=== PATIENT | male | born 1950 | race African-American/Black ===

== ENCOUNTER 2019-01-08 11:28 | Emergency (ER) | payer MEDICARE ==
[2019-01-08] MEDS ORDERED: Aspirin Chewable 81 MG TAB ONE (11:53)
[2019-01-08] MEDS ORDERED: Nitroglycerin 2% Ointment 1 INCH/1 GM Packet ONE (11:53)
[2019-01-08 12:31] LABS: #Lymphocytes 1.4 thou/uL (1.20-3.40); #Monocytes 0.4 thou/uL (0.11-0.59); #Neutrophils 3.8 thou/uL (1.40-6.50); %Basophils 0.2 % (0.0-1.0); %Eosinophils 0.5 % (0.0-10.0); %Lymphocytes 24.1 % (21.0-51.0); %Monocytes 7.1 % (0.0-10.0); %Neutrophils 68.1 % (42.0-75.0); Hemoglobin 12.7 g/dL (14.0-18.0); Mean Corpuscular HGB CONC 31.7 g/dL (32.0-36.0); Mean Platelet Volume 7.7 fL (7.4-10.4); Platelet Count 215 thou/uL (130-400); RBC Distribution Width 12.9 % (11.5-14.5); White Blood Cell (WBC) Count 5.6 thou/uL (4.8-10.8)
[2019-01-08 12:51] LABS: ALT (SGPT) 13 U/L (8-55); AST (SGOT) 15 U/L (5-34); Albumin 4.1 g/dL (3.4-4.8); Alkaline Phosphatase 84 U/L (40-150); Anion Gap 14 mmol/L (10-20); BUN (Urea Nitrogen) 7 mg/dL (8.4-25.7); Bilirubin, Total 1.2 mg/dL (0.2-1.2); CK (CPK) 276 U/L (30-200); Calc. Creatinine Clearance 0 mL/min (70-130); Calcium 8.9 mg/dL (7.8-10.44); Carbon Dioxide 25 mmol/L (23-31); Chloride 104 mmol/L (98-107); Estimated GFR-MDRD Greater than 90; Globulin 2.7 g/dL (2.4-3.5); Glucose 146 mg/dL (80-115); Lipase 35 U/L (8-78); Potassium 3.6 mmol/L (3.5-5.1); Protein, Total 6.8 g/dL (5.8-8.1); Sodium 139 mmol/L (136-145)
--- NOTE | 2019-01-08 13:00 | RAD ---
SINGLE VIEW CHEST: Date: 01/08/19 COMPARISON: 12/06/11. HISTORY: Chest pain. FINDINGS: Single view of the chest shows a normal sized cardiomediastinal silhouette. There is no evidence of c onsolidation, mass, or pleural effusion. The bones are unremarkable. IMPRESSION: No evidence of acute cardiopulmonary disease. POS: [facility]
[2019-01-08 15:20] LABS: Troponin I 0.014 ng/mL (< 0.028)
--- NOTE | 2019-01-08 15:35 | RAD ---
XR Ankle Lt 3 View STANDARD HISTORY: Trauma, left ankle pain FINDINGS: No fracture or dislocation is identified. Soft tissue swelling is present. The ankle mortise is maint ained.
--- NOTE | 2019-01-10 16:22 | EKG ---
Test Reason : CP Blood Pressure : / mmHG Vent. Rate : 055 BPM Atrial Rate : 055 BPM P-R Int : 152 ms QRS Dur : 092 ms QT Int : 444 ms P-R-T Axes : 052 -03 235 degrees QTc Int : 424 ms Sinus bradycardia with Premature atrial complexes Left ventricular hypertrophy with repolarization abnormality Abnormal ECG No change from 2016 Confirmed by CRALOS PADILLA, KATHE ([id number]), health editor VERO OSEGUERA ([id number]) on 01/10/2019 4:22:24 PM Referred By: CARLOS Confirmed By:KATHE GONZALEZ MD
== END 2019-01-08 15:45 | disposition home or self-care (01) ==
LOC: ERS 11:28
DX: R07.89 Other chest pain (principal); I11.0 Hypertensive heart disease with heart failure; I50.9 Heart failure, unspecified; I25.2 Old myocardial infarction; Z86.73 Personal history of transient ischemic attack (TIA), and cerebral infarction without residual deficits; Z87.891 Personal history of nicotine dependence; Z79.899 Other long term (current) drug therapy; Z79.84 Long term (current) use of oral hypoglycemic drugs; Z79.82 Long term (current) use of aspirin
CPT/HCPCS: 36415; 71045; 80053; 82550; 83690; 83880; 84484; 85025; 93005

== ENCOUNTER 2019-04-19 17:28 | Inpatient (IN) | payer MEDICARE ==
[2019-04-19] MEDS ORDERED: Morphine 4 MG/ML VIAL ONE (18:12)
--- NOTE | 2019-04-19 18:34 | RAD ---
Exam: Chest one view HISTORY:Rapid exam. Abdominal pain. Chronic cholecystitis. Comparison: 01/08/2019 FINDINGS: Stable stent projects over the medial left lung apex. Cardiac silhouette: Normal Aorta: Unremarkable Pulmonary vessels: Mild pulmonary vascular prominence. Costophrenic angles: Small right-sided effusion LUNGS: Bibasilar interstitial and alveolar opacities. Pneumothorax: None Osseous abnormalities: None IMPRESSION: Possible volume overload.
[2019-04-19] MEDS ORDERED: Ondansetron ODT 4 MG TAB PO PRN (19:00)
[2019-04-19] MEDS ORDERED: Dextrose 50% Abboject 50 ML SYRINGE SLOW IVP PRN (19:00)
[2019-04-19] MEDS ORDERED: Morphine 2 MG/ML SYRINGE SLOW IVP PRN (19:00)
[2019-04-19] MEDS ORDERED: Dextrose 5% in Water 1,000 ML IV PRN (19:00)
[2019-04-19] MEDS ORDERED: HumaLOG 300 UNITS/3 ML VIAL SC PRN (19:00)
[2019-04-19] MEDS ORDERED: Ketorolac Tromethamine 30 MG/ML VIAL IVP SCH ×2 (19:30→22:30)
[2019-04-19] MEDS ORDERED: Acetaminophen 1,000 MG in Premix Bag 1 BAG IVPB SCH (19:30)
[2019-04-19] MEDS ORDERED: Metoprolol Tartrate 5 MG/5 ML VIAL ONE (20:03)
[2019-04-19] MEDS: Famotidine/PF 20 mg/2ml Vial SLOW IVP SCH (22:00)
[2019-04-19] MEDS: Enoxaparin Sodium 40 MG/0.4 ML SYRINGE SC SCH (22:00)
[2019-04-19] MEDS: Lactated Ringer's 1,000 ML IV SCH (22:20)
[2019-04-19 22:59] VITALS: BMI 27.3
[2019-04-19] MEDS: Piperacillin/Tazobactam 3.375 GM in Sodium Chloride 0.9% 100 ML IVPB SCH (23:38)
[2019-04-20] MEDS ORDERED: Ketorolac Tromethamine 30 MG/ML VIAL IVP PRN (01:00)
--- NOTE | 2019-04-20 02:20 | HP ---
HISTORY OF PRESENT ILLNESS: Montez Jeff, a 69-year-old male patient transferred from [place] to the emergency room at [facility]. The patient complains of abdominal pain. In [place], this is evaluated with a CT scan of the abdomen and pelvis. This revealed distended gallbladder with gallstones and a dilated bile duct. He has bilateral inguinal hernias present. Degenerative spine changes. Common bile duct 9-10 mm. White count is 7, hemoglobin 13. Sodium 143, potassium 3.5, BUN 7, creatinine 0.98, bilirubin is 3.1, AST and ALT are 60 and 63, ALT 354, alkaline phosphatase 160. Lipase is normal. The patient is admitted for intravenous antibiotics, hydration, and GI consultation for ERCP with subsequent laparoscopic cholecystectomy. He understands risks and benefits of procedure and consents. PAST MEDICAL HISTORY: Hypertension, diabetes mellitus. He reports past myocardial infarctions followed by Dr. Calvillo, has not seen him in a number of years. He denies having cardiac catheterization or stents. He had EGD in [address] South with duodenal biopsy that was negative and gastric biopsies negative for metaplasia and H pylori. 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 On 11/19/2011, he had a laparoscopic hand-assisted right colectomy. On 11/26/2011, he had a laparoscopy with irrigation and placement of a drain for a leak. On 11/30/2011, he required repeat operation with resection of the terminal ileum, proximal transverse colostomy with redo of his anastomosis to resolve the problem. the patient has had previous cervical spine surgery x2, 2002 and 2005. He has had a previous appendectomy with a right lower quadrant paramedian incision, his last surgery. PAST MEDICAL HISTORY: Coronary artery disease status post past myocardial infarction followed by Dr. Calvillo, has not seen him in years. Previous stroke with left hemiparesis. He is nonambulatory. Previous spine surgery with right arm weakness. Previous history of swallowing problems due to CVA, hypertension. SOCIAL HISTORY: The patient lives with his family. They help him with his daily mobility. MEDICATIONS: 1. Baclofen 10 mg a day. 2. Gabapentin 800 mg 2 times a day. 3. MiraLAX 17 g once a week. 4. Dulcolax once a week. 5. Bentyl 20 mg as needed p.r.n. 6. Losartan 25 mg once a day. 7. Metformin 1000 mg once a day. PHYSICAL EXAMINATION: VITAL SIGNS: 86 kg, heart rate 80, respiratory rate 19, temperature 99 degrees, 160/78. HEAD, EARS, EYES, NOSE, AND THROAT: Unremarkable. LUNGS: Clear to auscultation. CARDIAC: Regular rate and rhythm without murmur or gallop. ABDOMEN: Tender with guarding, upper and lower abdomen. EXTREMITIES: Left hemiparesis; chronic edema, left lower extremity; right upper extremity weakness, cannot move it at all. He has some movement in his left upper extremity which is markedly impaired. REVIEW OF SYSTEMS: Noncontributory except as above. ASSESSMENT AND PLAN: 1. Cholecystitis, choledocholithiasis. His exam and history are impaired by his previous neurological impairments. CAT scan did not reveal anything other than cholecystitis. The plan is for admission, intravenous antibiotics, pain control. We will consult Gastroenterology and anticipate he will need an ERCP followed by laparoscopic cholecystectomy. 2. Diabetes mellitus. 3. Hypertension. 4. Coronary artery disease stable, followed by Dr. Calvillo in the past, EKG. 5. History of tobacco abuse, cessation more than 10 years ago. 6. Previous stroke with left hemiplegia. 7. Right upper arm weakness from previous cervical spine problems and surgery. 8. Poor mobility due to neurological impairment, lives with his family who helps him. Job ID: [id number]
[2019-04-20] MEDS: Lactated Ringer's 1,000 ML IV SCH ×3 (02:43→17:51)
[2019-04-20] MEDS: Piperacillin/Tazobactam 3.375 GM in Sodium Chloride 0.9% 100 ML IVPB SCH ×3 (05:27→17:48)
[2019-04-20] MEDS: Famotidine/PF 20 mg/2ml Vial SLOW IVP SCH ×2 (08:00→20:35)
[2019-04-20] MEDS ORDERED: FLU VACC TS2019-20(65YR UP)/PF 180 MCG/0.5 ML SYRINGE IM ONE (09:00)
[2019-04-20] MEDS ORDERED: ADENOSINE 60 MG/20 ML VIAL ONE (09:40)
[2019-04-20] MEDS: Acetaminophen 1,000 MG in Premix Bag 1 BAG IVPB PRN ×2 (09:54→20:35)
--- NOTE | 2019-04-20 10:03 | CON ---
DATE OF CONSULTATION: REASON FOR CONSULTATION: Preoperative clearance, history of CAD, status post RI. HISTORY OF PRESENT ILLNESS: Mr. Jones is a 69-year-old gentleman, who was evaluated by Dr. Rogelio South 3 years ago. He was also seen and evaluated by Dr. Keyshawn Calvillo greater than 5 years ago. He recently presented with cholecystitis. From a CV standpoint, he states he has had an RI x3 in the past. Stent or bypass was not performed. This was at [facility]. He has also had 3 strokes and is wheelchair bound. He has contraction of his left extremity. He states he had an episode of chest pain while in [place]. This was in November. No further studies were performed at that time. He states he has not had a recent stress study. No further episodes of chest pain noted. No significant shortness of breath, although his ambulation is limited due to the above. PAST MEDICAL HISTORY: Hypertension, hyperlipidemia, diabetes mellitus, CAD status post RI, CVA. SOCIAL HISTORY: He has a very supportive family. No current tobacco or alcohol use. HOME MEDICATIONS: Include: 1. Gabapentin. 2. Baclofen. 3. MiraLAX. 4. Dulcolax. 5. Bentyl. 6. Losartan. 7. Metformin. REVIEW OF SYSTEMS: A 10-point review of systems is reviewed as above, otherwise negative. PHYSICAL EXAMINATION: GENERAL: Patient is a pleasant gentleman who is in no acute distress. The patient appears their stated age. VITAL SIGNS: Blood pressure 129/94, pulse 85, temperature 97.6. NEUROLOGIC: Left __upper extremity extremity contraction. HEENT: Sclerae without icterus. Mouth has moist mucous membranes with normal pallor. NECK: No JVD. Carotid upstroke brisk. No bruits bilaterally. LUNGS: Clear to auscultation with unlabored respirations. BACK: No scoliosis or kyphosis. CARDIAC: Regular rate and rhythm with normal S1 and S2. No S3 or S4 noted. No significant rubs, murmurs, thrills, or gallops noted throughout the precordium. PMI is not displaced. There is no parasternal heave. ABDOMEN: Soft, nontender, nondistended. No peritoneal signs present. No hepatosplenomegaly. No abnormal striae. EXTREMITIES: 2+ femoral and 2+ dorsalis pedis pulses. No cyanosis, clubbing, or edema. SKIN: No gross abnormalities. PERTINENT LABORATORY DATA: Creatinine is 0.98. Lactic acid level 5.9. Troponin 0.014. BNP of 63. Hemoglobin 13.6. Chart not available for review. IMPRESSION: 1. Preoperative clearance. 2. Coronary artery disease. 3. Status post myocardial infarction. 4. Hypertension and hyperlipidemia. 5. Previous cerebrovascular accident. RECOMMENDATIONS: Mr. Jones did have an episode of chest pain in November. His ambulation is limited due to a previous CVA. Given previous history of RI, chest pain in November, and sedentary with limited ambulation, we recommend a noninvasive stress study prior to proceeding with surgery. This will help assess his LVEF in addition to assess his ischemic burden if any. Further recommendations will be pending the above. ADDENDUM: Recent stress test without ischemia present. EF normal. Pt felt to be at low risk for complications. Please reconsult if questions arise. Job ID: [id number] MTDD
[2019-04-20 12:36] LABS: #Monocytes 0.9 thou/uL (0.11-0.59); #Neutrophils 10.1 thou/uL (1.40-6.50); %Basophils 0.1 % (0.0-1.0); %Eosinophils 0.4 % (0.0-10.0); %Monocytes 7.3 % (0.0-10.0); %Neutrophils 84.3 % (42.0-75.0); Hemoglobin 12.6 g/dL (14.0-18.0); Mean Corpuscular HGB CONC 31.8 g/dL (32.0-36.0); Mean Corpuscular Hemoglobin 26.5 pg (27.0-31.0); Mean Corpuscular Volume 83.3 fL (78.0-98.0); Mean Platelet Volume 7.4 fL (7.4-10.4); Platelet Count 183 thou/uL (130-400); RBC Distribution Width 12.8 % (11.5-14.5); Red Blood Cell (RBC) Count 4.77 mill/uL (4.70-6.10)
[2019-04-20 13:03] LABS: ALT (SGPT) 273 U/L (8-55); AST (SGOT) 177 U/L (5-34); Albumin 3.3 g/dL (3.4-4.8); Alkaline Phosphatase 129 U/L (40-110); Anion Gap 15 mmol/L (10-20); BUN (Urea Nitrogen) 9 mg/dL (8.4-25.7); Bilirubin, Total 4.7 mg/dL (0.2-1.2); Calc. Creatinine Clearance 80 mL/min (70-130); Carbon Dioxide 23 mmol/L (23-31); Chloride 105 mmol/L (98-107); Estimated GFR-MDRD Greater than 90; Globulin 2.6 g/dL (2.4-3.5); Glucose 123 mg/dL (80-115); Potassium 3.4 mmol/L (3.5-5.1); Protein, Total 5.9 g/dL (5.8-8.1); Sodium 140 mmol/L (136-145)
--- NOTE | 2019-04-20 14:54 | RAD ---
PORTABLE CHEST: Date: 04/20/19 HISTORY: Assess central line placement. COMPARISON: 08/20/18. FINDINGS/IMPRESSION: Central line via the right subclavian has tip overlying the SVC. Lungs appear clear with no acute interval change noted. POS: [facility]
--- NOTE | 2019-04-20 16:46 | NM ---
NM Cardiac Stress W EF WF History: Chest pain Comparison: None. Findings: Stress and rest performed after the intravenous administration of 30.2 and 10 mCi technetiu m 99m sestamibi, respectively. No scar or ischemia. Normal wall motion. Calculated ejection fraction is 59%. Impression: No scar or ischemia. Code CR: Dr. Rossi notified of findings via [employer] connect at 4:43 PM
--- NOTE | 2019-04-20 17:42 | PRG ---
DATE OF SERVICE: 04/20/2019 Mr. Jones is doing well. His pain is less. He has been spent the whole day doing a cardiac stress test. The stress test was negative and there is no reversible ischemia. His cardiac ejection fraction is normal. Dr. Wyman saw him in consultation. Plan is for ERCP with GI. Dr. Torres was seen today. Dr. Michelle will take over his care tomorrow. I will plan laparoscopic cholecystectomy post ERCP. We will let him have full liquids tonight. N.p.o. after midnight tonight. He understands risks and benefits. Questions answered. Of note is he had to have a central line placed because of infiltration of his IV and difficult IV access. It was performed in Nuclear Medicine. Job ID: [id number]
--- NOTE | 2019-04-20 19:15 | CON ---
DATE OF CONSULTATION: 04/20/2019 PRIMARY CARE PROVIDER: Zaira Rey in [place], [place]. PRIMARY SERVICE ATTENDING: Dr. Rossi with General Surgery Service. REASON FOR CONSULTATION: General medical management. HISTORY OF PRESENT ILLNESS: This is a 69-year-old male, who presented to [facility] after transferring from [place] [facility] with complaints of abdominal pain. The patient complained of increase in abdominal pain and distention with CT imaging in the emergency room showing evidence of cholecystitis and choledocholithiasis. The patient was noted with elevated total bilirubin as well as transaminitis and concern for cholecystitis. The patient received intravenous normal saline in addition to IV Flagyl, Rocephin, and Zofran. The patient was admitted under the General Surgery Service with plans to pursue robot-assisted cholecystectomy after ERCP by GI Service. The patient underwent cardiac stress testing due to history of coronary artery disease with final Cardiolite stress testing results pending. The patient denies any specific increased shortness of breath, chest pain, or abdominal pain currently. The patient denied fever, chills, or exposure history. The patient does admit to a long-standing history of left-sided hemiplegia after sustaining a CVA in 2004. The patient also admits to right upper extremity paralysis after a cervical spine surgery. The patient states he is nonambulatory at baseline and uses an electric wheelchair for mobilization. The patient receives assistance from family members with general care and activities of daily living. PAST MEDICAL HISTORY: 1. Hypertension. 2. Coronary artery disease, status post cardiac stent placement. 3. CVA with residual left hemiparesis. 4. Nonambulatory status at baseline. 5. 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 6. Former tobacco use, quitting in 2009. 7. Colon cancer, status post resection. 8. Peripheral neuropathy. 9. Diabetes mellitus, type 2. PAST SURGICAL HISTORY: 1. Status post EGD with gastric biopsies negative for metaplasia. 2. Status post right hemicolectomy secondary to adenocarcinoma. 3. Status post laparoscopy with irrigation and placement of drain after anastomotic leak. 4. Status post cervical spine surgery x2. 5. Status post appendectomy. 6. Status post right lower quadrant paramedian incisional hernia. CURRENT MEDICATIONS: 1. Enteric-coated aspirin 81 mg p.o. b.i.d. 2. Baclofen 5 mg p.o. b.i.d. 3. Lasix 20 mg p.o. daily. 4. Gabapentin 400 mg p.o. b.i.d. 5. Cozaar 100 mg p.o. daily. 6. Metformin 500 mg p.o. b.i.d. 7. Simvastatin 20 mg p.o. at bedtime. ALLERGIES: TO ASPIRIN? FAMILY HISTORY: Positive for diabetes mellitus and hypertension. SOCIAL HISTORY: The patient resides in [place], [place], with family members. . Requires assistance with all activities of daily living and general hygiene. Mobilizes with electric wheelchair and nonambulatory at baseline. Quit smoking in 2009. No alcohol or illicit drug use. REVIEW OF SYSTEMS: CONSTITUTIONAL: Negative for weight loss or gain, ability to conduct usual activities. SKIN: Negative for rash, itching. EYES: Negative for double vision, pain. ENT/MOUTH: Negative for nose bleeding, neck stiffness, pain, tenderness. CARDIOVASCULAR: Negative for palpitations, dyspnea on exertion, orthopnea. RESPIRATORY: Negative for shortness of breath, wheezing, cough, hemoptysis, fever or night sweats. GASTROINTESTINAL: Negative for poor appetite, abdominal pain, heartburn, nausea, vomiting, constipation, or diarrhea. GENITOURINARY: Negative for urgency, frequency, dysuria, nocturia. MUSCULOSKELETAL: Negative for pain, swelling. NEUROLOGIC/PSYCHIATRIC: Negative for anxiety, depression. ALLERGY/IMMUNOLOGIC: Negative for skin rash, bleeding tendency. Otherwise, negative except as stated per HPI. PHYSICAL EXAMINATION: VITAL SIGNS: On initial evaluation, blood pressure 149/83, pulse 81, respiratory rate 20, temperature 97.4 degrees Fahrenheit, and O2 saturation 92% on room air. GENERAL APPEARANCE: This is a 69-year-old male, alert, responsive, smiling, and in no acute distress. HEENT: Pupils are equal, round, reactive to light and accommodation. Extraocular muscles are intact. Mild scleral icterus. No conjunctival injection. Nares patent. OP is clear with teeth in poor repair. NECK: Supple. No cervical adenopathy. No thyromegaly. No carotid bruits. No JVD appreciated. Cervical spine with full active and passive range of motion. No meningeal signs noted. CHEST: Diminished breath sounds in the bases bilaterally. CARDIOVASCULAR: S1 and S2 with distant heart sounds. No murmur, rub, or gallop appreciated. ABDOMEN: Rounded, soft, nontender, and nondistended. Bowel sounds are positive in all 4 quadrants. There is no hepatosplenomegaly, no abdominal bruit, no rebound or guarding appreciated. EXTREMITIES: Warm and dry with fair turgor. No clubbing, cyanosis, or asymmetric edema appreciated. Pulses palpable distally at the dorsalis pedis, posterior tibial, and popliteal arteries bilaterally. Capillary refill less than 2 seconds. NEUROLOGIC: Nonambulatory at baseline. Right upper extremity paralysis. Left hemiparesis. Contractures noted of the left upper extremity. Alert and oriented x3. LABORATORY AND DIAGNOSTIC DATA: Sodium 140, potassium 3.4, chloride 105, CO2 of 23, BUN 9, creatinine 0.97, estimated GFR greater than 90, glucose 123, calcium 8.0, total bilirubin 4.7, AST 177, ALT 273, alkaline phosphatase 129, and albumin 3.3. CBC showed a white blood cell count of 12.0, hemoglobin 12.6, hematocrit 40, platelet count 183 with 84% neutrophils. CT of the abdomen and pelvis dated 04/19/2019, showed a mildly distended gallbladder with gallstones and enlarged common bile duct. Prostatic enlargement noted. Portable chest x-ray dated 04/20/2019, showed central venous catheter in the right subclavian distribution overlying the superior vena cava. EKG dated 04/19/2019, by my interpretation shows a sinus mechanism with heart rates in the 80s. Normal R-wave progression noted in the precordial leads. Normal axis. No acute ST-T wave changes appreciated. ASSESSMENT AND PLAN: 1. Acute cholecystitis/choledocholithiasis. The patient admitted under the General Surgery Service. Continue Zosyn 3.375 g IV q.6 hours. Pain control with morphine sulfate as clinically indicated. Continue intravenous lactated Ringer's at 125 mL/h. Plan for robot-assisted cholecystectomy after ERCP. NPO status currently. 2. Hypokalemia. Recommend potassium chloride supplementation with serial potassium monitoring. Recommend complete metabolic profile in the a.m. 3. Diabetes mellitus type 2. Continue insulin sliding scale for reflexive coverage. Hold metformin until taking regular oral intake. Serial Accu-Cheks before meals and at bedtime. 4. Hypertension. Resume home regimen to include losartan 100 mg daily. Serial blood pressure monitoring. 5. Coronary artery disease, chronic, and stable. Review final Cardiolite stress testing results. 6. Chronic left hemiparesis and right upper extremity paralysis. Stable currently. No acute intervention recommended. 7. Prophylaxis. SCDs while in bed. Pepcid 20 mg p.o. b.i.d. 8. Code status is full. Surrogate medical decision maker is the patient's son, Montez Jones. Thank you for the consultation. We will continue to follow with Primary Service. Job ID: [id number]
[2019-04-20] MEDS: Ondansetron PF 4 MG/2 ML Vial IVP PRN (20:35)
[2019-04-20] MEDS: Enoxaparin Sodium 40 MG/0.4 ML SYRINGE SC SCH (20:36)
--- NOTE | 2019-04-20 20:52 | CON ---
DATE OF CONSULTATION: 04/20/2019 CHIEF COMPLAINT: Abdominal pain. HISTORY OF PRESENT ILLNESS: Mr. Jones is a 69-year-old man, who presented to the emergency room yesterday with abdominal pain. He started with a sharp lower abdominal pain yesterday. He vomited once at home and then again in the emergency room last night. He has had vomiting with certain foods over the last few months including chili and tomato sauce. His pain has been mostly in the lower abdomen. However, he has had tenderness noted in the right upper quadrant as well. During evaluation in the emergency room, he had a CT scan that showed distended gallbladder with cholelithiasis and prominent common bile duct. Bile duct reportedly measured around 10 mm. GI was consulted to evaluate for ERCP. The patient's liver tests were noted to be elevated as well. The patient has had no diarrhea or blood in the stool. He has been confined to live with his son and has been unable to use his left arm or right arm. His son has to bathe him and clean him up after bowel movements. The patient has suffered a stroke with left-sided weakness. He had right arm paralysis reportedly after cervical spine surgery. He has had no fever associated with this. PAST MEDICAL HISTORY: Stroke, diabetes mellitus, hypertension, history of myocardial infarction. He has had colon cancer and had surgery for that back in 2011, but reports that he has had no followup colonoscopy since then. PAST SURGICAL HISTORY: Includes right hemicolectomy, he had a drain for leak after that. He had terminal ileum resection with redo anastomosis after that. He has had appendectomy. He has had cervical spine surgery. FAMILY HISTORY: Negative for GI malignancy. SOCIAL HISTORY: No alcohol, tobacco, or drugs. ALLERGIES: ASPIRIN. MEDICATIONS PRIOR TO ADMISSION: 1. Aspirin 81 mg. 2. Baclofen. 3. Gabapentin. 4. MiraLAX. 5. Dulcolax. 6. Losartan. 7. Metformin 1000 mg daily. 8. He reports he has had frequent vomiting since his metformin dose was increased back in November. REVIEW OF SYSTEMS: Negative x10 systems reviewed, except as stated in the history of present illness. PHYSICAL EXAMINATION: VITAL SIGNS: Temperature is 97.4, pulse 81, blood pressure 149/83. GENERAL: He is in no acute distress. Alert and oriented x3. HEENT: Eyes have no scleral icterus. Oropharynx is clear without lesions. LYMPH NODES: No cervical or supraclavicular lymphadenopathy. LUNGS: Clear to auscultation bilaterally. HEART: Regular rate and rhythm without murmur. ABDOMEN: Soft. His abdomen is tender in the epigastric and lower abdomen. Bowel sounds are present. EXTREMITIES: 1+ pitting lower extremity edema. LABORATORY DATA: White blood cell count 12.0, hemoglobin 12.6, platelets 183. Creatinine 0.97. Bilirubin 4.7, up from 3.1 yesterday. AST is 177, down from 663 yesterday; ALT 273; alkaline phosphatase 129, down from 160 yesterday. Albumin 2.6. His viral hepatitis screen is negative. IMPRESSION: 1. Cholelithiasis with suspected cholecystitis. 2. Choledocholithiasis. He has gallstones noted in the gallbladder. His common bile duct is dilated. His white blood cell count is mildly elevated, but no other signs of cholangitis at this point. His pain has been more lower abdomen; however, given his prior stroke, bed-bound state, and multiple medications, he may not experience classic pain presentation. There are no other obvious signs of liver disease with a negative viral hepatitis panel and negative alcohol history. He is on a statin. However, the pattern of the liver tests are not highly suggestive of that. 3. History of coronary artery disease. He did undergo a cardiac stress test today that was negative. His ejection fraction was reported as normal. 4. History of colon cancer. He has had no followup colonoscopy reportedly after his surgery for colon cancer back in 2011. RECOMMENDATIONS: 1. We will plan to follow through with ERCP tomorrow. Dr. Michelle will be on to perform that procedure. I discussed the procedure in detail with the patient and the patient's son. I discussed the risks of ERCP including bleeding, infection, pancreatitis, failure to cannulate, and perforation. Also, I did advise the son that the patient's son and the patient's sister should both get increased risk screening colonoscopies performed given the patient's history of colon cancer. 2. Recheck his liver tests tomorrow morning. Job ID: [id number]
[2019-04-21] MEDS: Piperacillin/Tazobactam 3.375 GM in Sodium Chloride 0.9% 100 ML IVPB SCH ×4 (01:00→18:45)
[2019-04-21] MEDS: Morphine 4 MG/ML VIAL SLOW IVP PRN ×2 (01:08→05:18)
[2019-04-21] MEDS: Lactated Ringer's 1,000 ML IV SCH ×3 (03:29→17:43)
[2019-04-21] MEDS: Ondansetron PF 4 MG/2 ML Vial IVP PRN (05:30)
[2019-04-21 06:51] LABS: #Lymphocytes 0.7 thou/uL (1.20-3.40); #Monocytes 0.5 thou/uL (0.11-0.59); #Neutrophils 7.4 thou/uL (1.40-6.50); %Basophils 0.1 % (0.0-1.0); %Eosinophils 0.6 % (0.0-10.0); %Lymphocytes 7.8 % (21.0-51.0); %Monocytes 5.4 % (0.0-10.0); %Neutrophils 86.1 % (42.0-75.0); Hemoglobin 11.2 g/dL (14.0-18.0); Mean Corpuscular HGB CONC 31.5 g/dL (32.0-36.0); Mean Corpuscular Hemoglobin 26.1 pg (27.0-31.0); Mean Corpuscular Volume 82.9 fL (78.0-98.0); Mean Platelet Volume 8.1 fL (7.4-10.4); Platelet Count 187 thou/uL (130-400); Red Blood Cell (RBC) Count 4.28 mill/uL (4.70-6.10); White Blood Cell (WBC) Count 8.6 thou/uL (4.8-10.8)
[2019-04-21 07:11] LABS: ALT (SGPT) 201 U/L (8-55); AST (SGOT) 99 U/L (5-34); Albumin 3.2 g/dL (3.4-4.8); Alkaline Phosphatase 130 U/L (40-110); Anion Gap 15 mmol/L (10-20); BUN (Urea Nitrogen) 7 mg/dL (8.4-25.7); Bilirubin, Total 4.4 mg/dL (0.2-1.2); Calc. Creatinine Clearance 84 mL/min (70-130); Carbon Dioxide 25 mmol/L (23-31); Chloride 103 mmol/L (98-107); Estimated GFR-MDRD Greater than 90; Globulin 2.8 g/dL (2.4-3.5); Glucose 130 mg/dL (80-115); Potassium 3.1 mmol/L (3.5-5.1); Sodium 140 mmol/L (136-145)
[2019-04-21] MEDS: Famotidine/PF 20 mg/2ml Vial SLOW IVP SCH ×2 (08:44→20:24)
[2019-04-21] MEDS ORDERED: Indomethacin 50 MG SUPP ONE (10:41)
[2019-04-21] MEDS ORDERED: Iothalamate Meglumine 60% 50 ML VIAL FS ONE (10:41)
[2019-04-21] MEDS ORDERED: Bupivacaine HCl 0.5%/Epinephrine 1:200,000/PF 30 ml Vial ONE (10:55)
[2019-04-21] MEDS ORDERED: Indomethacin 50 MG SUPP PR ONE (11:15)
[2019-04-21] MEDS ORDERED: Fentanyl 100 MCG/2 ML VIAL ONE ×2 (11:17→15:59)
[2019-04-21] MEDS ORDERED: Piperacillin/Tazobactam 3.375 GM VIAL ONE (12:12)
[2019-04-21] MEDS ORDERED: Sodium Chloride 0.9% 100 ML ONE (12:13)
--- NOTE | 2019-04-21 13:00 | OP ---
DATE OF PROCEDURE: 04/20/2019 PREOPERATIVE DIAGNOSES: 1. Cholecystitis. 2. Cholelithiasis. 3. Previous stroke. 4. Undergoing stress test, in need of ERCP and laparoscopic cholecystectomy. 5. Poor IV access. POSTOPERATIVE DIAGNOSES: 1. Cholecystitis. 2. Cholelithiasis. 3. Previous stroke. 4. Undergoing stress test, in need of ERCP and laparoscopic cholecystectomy. 5. Poor IV access. PROCEDURE PERFORMED: Right subclavian vein central line. ANESTHESIA: 1% Xylocaine. DESCRIPTION OF PROCEDURE: With the patient at bedside, his right paraclavicular area was prepared with ChloraPrep and draped in routine fashion. Local anesthetic was infiltrated in the skin and subcutaneous tissue about the operative site. Using Seldinger technique, the right subclavian vein central line was placed. J-wire removed. Catheter secured with 2 interrupted suture of 3-0 silk. Sterile dressing applied. Chest x-ray obtained, revealed good line placement. Job ID: [id number]
--- NOTE | 2019-04-21 13:41 | PQF ---
CLINICAL DOCUMENTATION IMPROVEMENT CLARIFICATION FORM: ICD-10 Updated PLEASE DO AN ADDENDUM TO THE PROGRESS NOTE WITH ANY DOCUMENTATION UPDATES OR ADDITIONS AND CARRY THROUGH TO DC SUMMARY. THANK YOU. DATE: 04/21/19 ATTN: DR. CARROLL Please exercise your independent, professional judgment in responding to the clarification form. Clinical indicators are provided on the bottom of this form for your review Please check appropriate box(es): [ ] Sepsis due to: (Pna, UTI, gangrenous gall bladder, etc.) ___cholangitis___ [ ] SIRS due to non-infectious process (please specify etiology) [ ] with organ dysfunction [ ] without organ dysfunction [ ] Localized infection without sepsis [ ] Other diagnosis [ ] Unable to determine In addition, please specify: Present on Admission (POA): [ yes ] Yes [ ] No [ ] Unable to determine For continuity of documentation, please document condition throughout progress notes and discharge summary. Thank You. CLINICAL INDICATORS - SIGNS / SYMPTOMS / LABS / RESULTS AND LOCATION IN MR ER NOTE04/19: "SEPSIS" PULSE 103 WBC 04/20: 12.0 RISKS: CHOLECYSTITIS (ER NOTE 04/19) TREATMENT: IV ZOSYN (04/19-PRESENT) ERCP 04/21 GI CONSULT (This form is maintained as a part of the permanent medical record) 2014 [employer]. All Rights Reserved [email or web address] Office: [phone] [facility]VERNEUR HEALTHJean Marie
--- NOTE | 2019-04-21 13:53 | RAD ---
XR ERCP History: Stone removal Comparison: CT examination June 19, 2019 Findings: 2 images were obtained from the ERCP suite. Low-grade extra hepatic biliary dilatation. Impression: Fluoroscopy for procedural use.
--- NOTE | 2019-04-21 14:34 | OP ---
DATE OF PROCEDURE: 04/21/2019 PROCEDURES PERFORMED: Endoscopic retrograde cholangiopancreatography with sphincterotomy and removal of biliary sludge/calculi. INDICATION FOR PROCEDURE: Right upper quadrant abdominal pain, elevated LFTs, and possible choledocholithiasis. DESCRIPTION OF PROCEDURE: After the risks and benefits of the procedure were explained to the patient including risks of bleeding, infection, perforation, reactions to anesthesia, aspiration, post ERCP pancreatitis and/or pain, informed consent was obtained. The patient was then taken to the endoscopy suite, where general anesthesia was administered with endotracheal tube intubation via Anesthesia support. Once the patient was intubated and sedated, he was then transferred to the prone position in anticipation of the ERCP. Once in adequate position and the fluoroscopy arm was in place, the standard duodenoscope was advanced into the mouth with intubation of the esophagus, stomach, and the proximal small intestines with the findings listed below. Initially, the ampulla was extremely difficult to be identified with a large amount of bile seen within the first and second portion of the duodenum. As such, the duodenoscope was exchanged for a standard gastroscope for better visualization to direct viewing. The ampulla was not able to be easily identified even with the EGD scope, but aggressive irrigation and suctioning was then performed to clear the second portion of bile. The standard colonoscope was then reintroduced into the mouth and advanced to the second portion of the duodenum, where a small area of bile was seen emanating from the mucosa underneath the fold. Upon manipulation of that fold, the ampulla was then easily identified. Using a 5 mm sphincterotome, the ampulla was then cannulated with a guidewire placed into the common bile duct and into the intrahepatic biliary tree. Once adequate positioning was obtained, a cholangiogram was then performed. No filling defects were initially seen, but a sphincterotomy was then performed with one balloon sweep in order to clear the duct. However, there was extreme difficulty maintaining this position and recannulation of the biliary tree was not able to be performed after the wire was removed. However, at the end of the procedure, repeat cholangiogram showed adequate draining of the biliary tree and again with no filling defects. All equipment was removed from the patient and was then subsequently transferred to PACU in satisfactory condition. EGD FINDINGS: Limited views were obtained of the esophagus, stomach, and the proximal small intestines via an ERCP portion of this examination. However, with transferring over to the standard gastroscope, adequate visualization was then achieved. Normal-appearing mucosa was then seen in the proximal, mid, and distal esophagus. There was some mild oozing of blood seen within the stomach that was consistent with scope trauma associated with the passage of the duodenoscope, but otherwise there was no evidence of erosions, ulcerations, mass, lesions, or active/recent bleeding. Normal-appearing mucosa was then seen within the first and second portion of the duodenum. However, there was a large amount of bile seen in the second portion of the duodenum that was then successfully irrigated during the EGD portion of this examination. The ampulla was not successfully identified using the standard gastroscope. ERCP FINDINGS: The standard colonoscope was introduced into the mouth and advanced through the esophagus, stomach, and to the proximal small intestines. Initially, the ampulla was not easily identified as there was a large amount of bile within the second portion of the duodenum. The polypoid appearance of the ampulla was not easily identified. The duodenoscope was then exchanged for a gastroscope and using the gastroscope, the second portion of the duodenum was successfully irrigated and suctioned of all bile for better visualization, the gastroscope was then removed and exchanged back for the duodenoscope and using the duodenoscope, the mucosa was then carefully examined. One particular spot along the second portion of the superior duodenal wall was seen with new bile emanating from underneath a few folds. Using the 5 mm sphincterotome, the folds were successfully manipulated away revealing the ampulla itself. Once the ampulla was identified, the sphincterotome was introduced into the common bile duct using a guidewire, which was then advanced into the intrahepatic biliary tree with successful placement of the biliary guidewire. The sphincterotome was advanced into the common bile duct with a cholangiogram performed. The common bile duct measured approximately 8 to 9 mm in size and did not exhibit any filling defects within the common bile duct or the common hepatic duct. Mild filling of the intrahepatic biliary tree was observed. Then, using an exchange technique, the sphincterotome was exchanged over guidewire for a 9 to 12 mm biliary balloon. Once the balloon was successfully exchanged, it was advanced into the common bile duct and advanced to the proximal common hepatic duct. Inflating the balloon to 12 mm, the balloon was then successfully withdrawn with removal of a large amount of sludge, but no evidence of biliary stones. Extreme difficulty was experienced while maintaining this position and inadvertently the guidewire was removed upon balloon extraction. Repeat attempts at placing a guidewire back into the biliary tree were unsuccessful. Good drainage of bile was noted after the sphincterotomy and with a repeat fluoroscopy image, the common hepatic, intrahepatic, and common bile duct were draining nicely. With no observable filling defect, good drainage of the biliary tree, the procedure was then terminated and all equipment was removed from the patient. IMPRESSION: 1. Extreme difficulty with identification of the ampulla of Vater, requiring the exchange for a gastroscope to irrigate the second portion of the duodenum for easy identification. 2. Successful cannulation of the ampulla with sphincterotomy and balloon sweep performed with extraction of dark brown/black biliary sludge, but no observed stones. RECOMMENDATIONS: 1. Would continue to trend the patient's LFTs for resolution and if continues to uptrend, may consider repeat ERCP for further balloon extractions. 2. Would continue antibiotics for at least the next 24 hours given increased risk of infection. 3. Would advance the patient to a clear liquid diet. 4. Would confer with General Surgery of the timing for laparoscopic cholecystectomy and would recommend an intraoperative cholangiogram at the time of the procedure. 5. Would continue to monitor the patient for clinical evidence or clinical signs of post ERCP pancreatitis. Job ID: [id number]
[2019-04-21] MEDS ORDERED: hydrALAZINE 20 MG/ML VIAL ONE (14:44)
[2019-04-21] MEDS ORDERED: Ondansetron HCl/PF 4 MG/2 ML Vial IVP PRN (14:48)
[2019-04-21] MEDS ORDERED: Promethazine HCl 25 MG/ML VIAL IM PRN ×2 (14:48→16:55)
[2019-04-21] MEDS ORDERED: Promethazine HCl 25 MG/ML VIAL SLOW IVP PRN (14:48)
[2019-04-21] MEDS ORDERED: Acetaminophen 1,000 MG in Premix Bag 1 BAG IVPB PRN (15:17)
[2019-04-21] MEDS ORDERED: traMADol HCl 50 MG TAB PO PRN (15:17)
[2019-04-21] MEDS ORDERED: diphenhydrAMINE 25 MG CAP PO PRN (16:55)
[2019-04-21] MEDS ORDERED: Zolpidem Tartrate 5 MG TAB PO PRN (16:55)
[2019-04-21] MEDS ORDERED: fentaNYL Citrate/PF 2,000 MCG in Sodium Chloride 0.9% 60 ML IV PRN (16:55)
[2019-04-21] MEDS ORDERED: Naloxone HCl 0.4 mg/ml Vial IV PRN (16:55)
[2019-04-21] MEDS ORDERED: diphenhydrAMINE 50 MG/ML VIAL IM PRN (16:55)
[2019-04-21] MEDS ORDERED: diphenhydrAMINE 50 MG/ML VIAL IVP PRN (16:55)
[2019-04-21] MEDS ORDERED: Ondansetron PF 4 MG/2 ML Vial IVP PRN (16:55)
[2019-04-21] MEDS ORDERED: metFORMIN 500 MG TAB PO SCH (17:00)
[2019-04-21] MEDS ORDERED: Communication Order-Pharmacy FS SCH (17:00)
[2019-04-21] MEDS: Ketorolac Tromethamine 30 MG/ML VIAL IVP SCH (17:33)
[2019-04-21] MEDS: Acetaminophen 1,000 MG in Premix Bag 1 BAG IVPB SCH (17:42)
--- NOTE | 2019-04-21 17:59 | OP ---
DATE OF PROCEDURE: 04/21/2019 PREOPERATIVE DIAGNOSES: Cholecystitis and cholelithiasis. POSTOPERATIVE DIAGNOSIS: Adhesions from prior surgery. Note, the patient had an ERCP by Dr. Michelle extracting sludge from the common duct under the same anesthetic, undergoing laparoscopic cholecystectomy. PROCEDURE PERFORMED: Laparoscopic converted open cholecystectomy due to adhesions from prior surgery. ANESTHESIA: General, local 0.5% Marcaine with epinephrine 30 mL. DESCRIPTION OF PROCEDURE: The patient was taken to the operating room, where after ERCP by Dr. Michelle, sphincterotomy and sludge extraction, abdomen was prepared with ChloraPrep and draped in routine fashion. Local anesthetic was infiltrated in the skin and subcutaneous tissue about the port sites. Right subcostal incision was made. Pneumoperitoneum to 15 mmHg was obtained with a Veress needle, a 5 port was placed. I introduced the laparoscope, could not see anything for adhesions. Right subxiphoid incision was made and 11 port placed. Again, I could not see anything for adhesions. Left lateral subcostal incision was made, and 5 port was placed and again, there were too many adhesions. Incision was made in right subcostal carried down through skin and subcutaneous tissue through the anterior rectus sheath, fascia, rectus muscle and posterior sheath and abdominal cavity sharply. Adhesions were taken down from the liver bed the stomach from the liver. The gallbladder identified, dissected free. Bookwalter retractor was used to perform cholecystectomy retrograde using cautery. Cystic artery and duct identified, dissected free. Cystic artery doubly clipped proximally, divided the cystic duct, dissected free. It was too broad to be occluded by clip, thus it was clamped and ligated with a 2-0 silk tie after divided. Gallbladder removed, submitted to Pathology. Good hemostasis was assured with cautery. Sponge and instrument counts were correct as all instruments were removed, and the posterior fascia approximated with continuous suture of #1 PDS, anterior fascia with interrupted locking sutures of 0 PDS. Skin and subcutaneous tissues were irrigated. Skin was approximated with stephania. The patient tolerated the procedure well. Job ID: [id number]
[2019-04-21] MEDS: hydrALAZINE 20 MG/ML VIAL SLOW IVP PRN ×2 (18:01→22:05)
--- NOTE | 2019-04-21 18:32 | PDOC.HOSPP ---
- Subjective Encounter Date: 04/21/19 Subjective: Pt seen at bed site c/o surgery site pain Denies chest pain headache dizziness BP higher site diastolic in the range of 110 - Objective Vital Signs & Weight: Vital Signs (12 hours) Temp Pulse Resp BP BP Pulse Ox 04/21/19 18:20 180/114 H 04/21/19 18:09 100 205/111 H 04/21/19 18:06 97.5 F L 83 18 211/128 H 100 04/21/19 18:01 91 212/114 H 04/21/19 14:45 91 187/89 H 04/21/19 10:51 97.5 F L 101 H 14 131/80 94 L 04/21/19 07:38 97.5 F L 67 12 176/89 H 98 Weight Weight 175 lb 1 oz I&O: 04/20/19 04/21/19 04/22/19 06:59 06:59 06:59 Intake Total 2703 1788 Balance 2703 1788 Result Diagrams: 04/22/19 06:00 04/23/19 05:30 Additional Labs: Accuchecks 04/21/19 04/21/19 04/20/19 05:50 01:20 18:32 POC Glucose 120 H 125 H 104 Hospitalist ROS - Review of Systems Constitutional: denies: chills Eyes: denies: pain ENT: denies: ear pain Respiratory: reports: dry. denies: cough Cardiovascular: denies: chest pain Gastrointestinal: reports: abdominal pain. denies: nausea Musculoskeletal: denies: neck pain Skin: denies: rash Neurological: denies: weakness - Medication Medications: Active Medications Generic Name Dose Route Start Last Admin Trade Name Freq PRN Reason Stop Dose Admin Enoxaparin Sodium 40 mg 04/19/19 21:00 04/20/19 20:36 Lovenox SC 40 mg 2100 TIKA Administration Famotidine 20 mg 04/19/19 21:00 04/21/19 08:44 Pepcid SLOW IVP 20 mg Q12HR TIKA Administration Hydralazine HCl 10 mg 04/19/19 19:00 04/21/19 18:01 Apresoline SLOW IVP 10 mg Q4H PRN Administration SBP > 170 or DBP > 100 Piperacillin Sod/Tazobactam 100 mls @ 200 mls/hr 04/19/19 23:59 04/21/19 13: 09 Sod 3.375 gm/ Sodium Chloride IVPB Not Given Q6HR [facility] Acetaminophen 1,000 mg/ Device 100 mls @ 400 mls/hr 04/21/19 18:00 04/21/19 17:42 IVPB 04/22/19 12:14 Not Given Q6HR [facility] Insulin Human Lispro 0 units 04/19/19 19:00 04/20/19 00:05 Humalog SC 4 unit .MODERATE SLIDING SC PRN Administration Moderate Correctional Scale Ketorolac Tromethamine 30 mg 04/21/19 18:00 04/21/19 17:33 Toradol IVP 04/26/19 18:01 Not Given Q6HR [facility] Ondansetron HCl 4 mg 04/19/19 19:00 04/21/19 05:30 Zofran IVP 4 mg Q6H PRN Administration Nausea - Exam General Appearance: awake alert Eye: anicteric sclera ENT: normocephalic atraumatic, dry oral mucosa Neck: supple Heart: no murmur Respiratory: no wheezes Gastrointestinal: tender to palpation Extremities: no cyanosis Neurological: cranial nerve grossly intact Musculoskeletal: normal tone Hosp A/P - Plan Acute Cholecystitis /choledocholithiasis s/p ERCP and cholecystectomy Continue pain meds Hypertension with hypertensive urgency most likley contributing factor pain Continue PRN hydralazine , Pain control if persistent High BP readings will transfer to IMC DM continue to monitor blood sugars h/o CVA Continue supportive care DVT/GI Prophyalxis Discussed with pt and family member and nursing staff
[2019-04-21] MEDS ORDERED: 1/2 NS w/KCL 20 mEq 1,000 ML IV SCH (18:45)
[2019-04-21] MEDS ORDERED: Losartan 25 MG TAB PO SCH (18:45)
[2019-04-21] MEDS: 1/2 NS w/KCL 20 mEq 1,000 ML IV SCH (19:20)
[2019-04-21] MEDS ORDERED: Dexamethasone 20 MG/5 ML VIAL ONE (19:44)
[2019-04-21] MEDS ORDERED: Glycopyrrolate 0.2 MG/ML 5 ML SYRINGE ONE (19:44)
[2019-04-21] MEDS ORDERED: PHENYLEPHRINE-NS 100 MCG/ML 10 ML SYRINGE ONE (19:44)
[2019-04-21] MEDS ORDERED: Rocuronium Bromide 10 MG/ML (10ML VIAL) ONE (19:44)
[2019-04-21] MEDS ORDERED: Ondansetron PF 4 MG/2 ML Vial ONE (19:44)
[2019-04-21] MEDS ORDERED: Ketorolac Tromethamine 30 MG/ML VIAL ONE (19:44)
[2019-04-21] MEDS ORDERED: PROPOFOL 200 MG/20 ML VIAL ONE (19:44)
[2019-04-21] MEDS ORDERED: Succinylcholine Chloride 20 MG/ML 10 ml SYRINGE FS ONE (19:44)
[2019-04-21] MEDS: Simvastatin 20 MG TAB PO SCH (20:23)
[2019-04-21] MEDS: Gabapentin 400 MG CAP PO SCH (20:28)
[2019-04-21] MEDS: Aspirin 81 mg Enteric Coated Tablet PO SCH (20:28)
[2019-04-21] MEDS: Baclofen 10 MG TAB PO SCH (20:29)
[2019-04-21] MEDS: Enoxaparin Sodium 40 MG/0.4 ML SYRINGE SC SCH (20:32)
[2019-04-22] MEDS: Piperacillin/Tazobactam 3.375 GM in Sodium Chloride 0.9% 100 ML IVPB SCH ×2 (00:59→05:41)
[2019-04-22] MEDS: Ketorolac Tromethamine 30 MG/ML VIAL IVP SCH ×5 (00:59→23:51)
[2019-04-22] MEDS: Acetaminophen 1,000 MG in Premix Bag 1 BAG IVPB SCH ×2 (00:59→05:40)
[2019-04-22 06:18] LABS: #Basophils 0.1 thou/uL (0.0-0.2); #Lymphocytes 0.5 thou/uL (1.20-3.40); #Monocytes 0.4 thou/uL (0.11-0.59); #Neutrophils 8.3 thou/uL (1.40-6.50); %Basophils 0.7 % (0.0-1.0); %Eosinophils 0.1 % (0.0-10.0); %Lymphocytes 5.7 % (21.0-51.0); %Monocytes 4.7 % (0.0-10.0); %Neutrophils 88.8 % (42.0-75.0); Hemoglobin 10.2 g/dL (14.0-18.0); Mean Corpuscular HGB CONC 32.4 g/dL (32.0-36.0); Mean Corpuscular Hemoglobin 26.3 pg (27.0-31.0); Mean Corpuscular Volume 81.1 fL (78.0-98.0); Mean Platelet Volume 7.4 fL (7.4-10.4); Platelet Count 173 thou/uL (130-400); RBC Distribution Width 12.8 % (11.5-14.5); Red Blood Cell (RBC) Count 3.89 mill/uL (4.70-6.10); White Blood Cell (WBC) Count 9.4 thou/uL (4.8-10.8)
[2019-04-22 06:37] LABS: ALT (SGPT) 146 U/L (8-55); AST (SGOT) 81 U/L (5-34); Albumin 2.7 g/dL (3.4-4.8); Alkaline Phosphatase 110 U/L (40-110); Anion Gap 12 mmol/L (10-20); BUN (Urea Nitrogen) 7 mg/dL (8.4-25.7); Bilirubin, Total 1.6 mg/dL (0.2-1.2); Calc. Creatinine Clearance 80 mL/min (70-130); Calcium 7.1 mg/dL (7.8-10.44); Carbon Dioxide 22 mmol/L (23-31); Chloride 104 mmol/L (98-107); Estimated GFR-MDRD Greater than 90; Globulin 2.4 g/dL (2.4-3.5); Glucose 174 mg/dL (80-115); Potassium 3.4 mmol/L (3.5-5.1); Protein, Total 5.1 g/dL (5.8-8.1); Sodium 135 mmol/L (136-145)
[2019-04-22] MEDS: Gabapentin 400 MG CAP PO SCH ×2 (08:47→20:23)
[2019-04-22] MEDS: Aspirin 81 mg Enteric Coated Tablet PO SCH ×2 (08:47→20:23)
[2019-04-22] MEDS: Polyethylene Glycol 3350 17 GM Packet PO SCH (08:47)
[2019-04-22] MEDS: Baclofen 10 MG TAB PO SCH ×2 (08:48→20:22)
[2019-04-22] MEDS: Losartan 25 MG TAB PO SCH (08:48)
[2019-04-22] MEDS ORDERED: Acetaminophen 500 MG TAB PO PRN (09:26)
[2019-04-22] MEDS: 1/2 NS w/KCL 20 mEq 1,000 ML IV SCH (09:30)
--- NOTE | 2019-04-22 09:38 | PRG ---
DATE OF SERVICE: 04/22/2019 SUBJECTIVE: Montez Jones is doing well today after open cholecystectomy yesterday. He had prohibitive adhesions for laparoscopic approach. OBJECTIVE: VITAL SIGNS: Temperature 98.1 degrees, heart rate 102, respirations 18, blood pressure 113/76. GENERAL: The patient is awake and oriented. He is having very little pain. In fact, he thanks me today for resolving his problem as he is not having any pain. His pain is resolved. He is status post ERCP, sphincterotomy, removal of choledocholithiasis, sludge and resolution of cholangitis. His hemoglobin is 10.2 this morning. His bilirubin has dropped from 4-1.6 and transaminases have improved as his alkaline phosphatase is normalized. LUNGS: Clear to auscultation. CARDIAC: Regular rate and rhythm without murmur or gallop. ABDOMEN: Soft. Dressings intact. EXTREMITIES: Unremarkable. ASSESSMENT/PLAN: Hemiplegia. The patient states he is up in a chair most of the day at home, but he has not been up in a chair since being in the hospital. We will enter orders to get the patient out of bed into a chair to spend most of the day out of bed. He can resume his regular diet. He can anticipate discharge home tomorrow and we will discontinue his BRAILLE TYPIST. Job ID: [id number]
[2019-04-22] MEDS ORDERED: HYDROcodone/Acetaminophen 5/325 mg Tablet PO PRN ×2 (11:24)
[2019-04-22] MEDS ORDERED: Fentanyl 100 MCG/2 ML VIAL SLOW IVP PRN (11:25)
--- NOTE | 2019-04-22 16:02 | PRG ---
DATE OF SERVICE: 04/22/2019 SUBJECTIVE: Mr. Jones feels well today. He has no abdominal pain. He states that he feels like a young man. He has no nausea or vomiting. OBJECTIVE: ABDOMEN: Soft and nontender. His bowel sounds are present. EXTREMITIES: No lower extremity edema. IMPRESSION: 1. Choledocholithiasis, status post endoscopic retrograde cholangiopancreatography with sphincterotomy and balloon stone extraction. 2. Cholecystitis, status post cholecystectomy. This had to be opened due to adhesions. RECOMMENDATIONS: His liver tests are trending down. GI will sign off for now. Please call if we can be of assistance. Job ID: [id number]
--- NOTE | 2019-04-22 18:50 | PDOC.HOSPP ---
- Subjective Encounter Date: 04/22/19 Subjective: Pt seen feeling better tolerating diet BP better not in distress - Objective Vital Signs & Weight: Vital Signs (12 hours) Temp Pulse Resp BP Pulse Ox 04/22/19 16:10 97.3 F L 80 18 135/81 97 04/22/19 15:33 97.3 F L 80 18 135/81 97 04/22/19 12:45 18 135/81 97 04/22/19 11:32 98.1 F 94 16 122/81 96 04/22/19 08:00 98.1 F 102 H 18 113/76 98 04/22/19 07:49 98.1 F 102 H 18 113/76 98 04/22/19 07:21 100 Weight Weight 175 lb 1 oz I&O: 04/21/19 04/22/19 04/23/19 06:59 06:59 06:59 Intake Total 1788 1904.5 1955 Output Total 100 600 Balance 1788 1804.5 1355 Result Diagrams: 04/22/19 06:00 04/22/19 06:00 Additional Labs: Accuchecks 04/22/19 04/22/19 04/22/19 15:41 11:34 05:11 POC Glucose 189 H 178 H 162 H 04/21/19 21:12 POC Glucose 184 H Hospitalist ROS - Review of Systems Constitutional: denies: fever Eyes: denies: pain ENT: denies: ear pain Respiratory: denies: cough Cardiovascular: denies: chest pain Gastrointestinal: reports: abdominal pain. denies: nausea, vomiting Genitourinary: denies: dysuria Musculoskeletal: denies: neck pain Neurological: denies: weakness - Medication Medications: Active Medications Generic Name Dose Route Start Last Admin Trade Name Freq PRN Reason Stop Dose Admin Aspirin 81 mg 04/21/19 21:00 04/22/19 08:47 Ecotrin PO 81 mg BID TIKA Administration Baclofen 5 mg 04/21/19 21:00 04/22/19 08:48 Lioresal PO 5 mg BID TIKA Administration Enoxaparin Sodium 40 mg 04/19/19 21:00 04/21/19 20:32 Lovenox SC 40 mg 2100 TIKA Administration Gabapentin 400 mg 04/21/19 21:00 04/22/19 08:47 Neurontin PO 400 mg BID TKIA Administration Hydralazine HCl 10 mg 04/19/19 19:00 04/21/19 22:05 Apresoline SLOW IVP 10 mg Q4H PRN Administration SBP > 170 or DBP > 100 Insulin Human Lispro 0 units 04/19/19 19:00 04/20/19 00:05 Humalog SC 4 unit .MODERATE SLIDING SC PRN Administration Moderate Correctional Scale Ketorolac Tromethamine 30 mg 04/21/19 18:00 04/22/19 18:11 Toradol IVP 04/26/19 18:01 30 mg Q6HR TIKA Administration Losartan Potassium 100 mg 04/22/19 09:00 04/22/19 08:48 Cozaar PO 100 mg DAILY TIKA Administration Ondansetron HCl 4 mg 04/19/19 19:00 04/21/19 05:30 Zofran IVP 4 mg Q6H PRN Administration Nausea Polyethylene Glycol 17 gm 04/22/19 09:00 04/22/19 08:47 Miralax PO 17 gm DAILY TIKA Administration Simvastatin 20 mg 04/21/19 21:00 04/21/19 20:23 Zocor PO 20 mg HS TIKA Administration - Exam General Appearance: awake alert Eye: anicteric sclera ENT: normocephalic atraumatic Neck: supple Heart: no murmur Respiratory: no wheezes Gastrointestinal: non-tender Extremities: negative: no cyanosis Psychiatric: A&O x 3 Hosp A/P - Plan Acute Cholecystitis /choledocholithiasis s/p ERCP and cholecystectomy tolerating diet Continue pain meds as needed Hypertension with hypertensive urgency improved today , BP stable Continue PRN hydralazine DM continue to monitor blood sugars h/o CVA Continue supportive care DVT/GI Prophyalxis Discussed with pt and nursing staff Possible dc in am
[2019-04-22] MEDS: Enoxaparin Sodium 40 MG/0.4 ML SYRINGE SC SCH (20:22)
[2019-04-22] MEDS: Simvastatin 20 MG TAB PO SCH (20:23)
[2019-04-23] MEDS: Ketorolac Tromethamine 30 MG/ML VIAL IVP SCH ×2 (05:24→15:40)
[2019-04-23 06:12] LABS: ALT (SGPT) 103 U/L (8-55); AST (SGOT) 44 U/L (5-34); Albumin 2.7 g/dL (3.4-4.8); Alkaline Phosphatase 105 U/L (40-110); Anion Gap 12 mmol/L (10-20); BUN (Urea Nitrogen) 10 mg/dL (8.4-25.7); Bilirubin, Total 0.9 mg/dL (0.2-1.2); Calc. Creatinine Clearance 87 mL/min (70-130); Calcium 7.4 mg/dL (7.8-10.44); Carbon Dioxide 24 mmol/L (23-31); Chloride 106 mmol/L (98-107); Estimated GFR-MDRD Greater than 90; Globulin 2.5 g/dL (2.4-3.5); Glucose 158 mg/dL (80-115); Protein, Total 5.2 g/dL (5.8-8.1); Sodium 139 mmol/L (136-145)
[2019-04-23] MEDS: Losartan 25 MG TAB PO SCH (09:47)
[2019-04-23] MEDS: Aspirin 81 mg Enteric Coated Tablet PO SCH (09:47)
[2019-04-23] MEDS: Gabapentin 400 MG CAP PO SCH (09:47)
[2019-04-23] MEDS: Baclofen 10 MG TAB PO SCH (09:47)
[2019-04-23] MEDS: Polyethylene Glycol 3350 17 GM Packet PO SCH (09:49)
[2019-04-23] MEDS ORDERED: Potassium Chloride 20 MEQ TAB PO SCH ×2 (14:15→17:00)
[2019-04-23 14:58] VITALS: BP 168/104; TEMP 98.3
[2019-04-23] MEDS ORDERED: Tamsulosin HCl 0.4 MG CAP PO SCH (15:00)
--- NOTE | 2019-04-23 16:01 | PDOC.HOSPP ---
- Subjective Encounter Date: 04/23/19 Subjective: Pt seen feeling better today , in good spirits Denies headache dizziness fever tolerating diet - Objective Vital Signs & Weight: Vital Signs (12 hours) Temp Pulse Resp BP Pulse Ox 04/23/19 14:57 98.3 F 84 20 168/104 H 94 L 04/23/19 11:02 98.4 F 87 18 165/94 H 94 L 04/23/19 07:29 98.3 F 88 20 158/76 H 92 L Weight Weight 175 lb 1 oz I&O: 04/22/19 04/23/19 04/24/19 06:59 06:59 06:59 Intake Total 1904.5 3005 Output Total 100 2050 Balance 1804.5 955 Result Diagrams: 04/22/19 06:00 04/23/19 05:30 Additional Labs: Accuchecks 04/23/19 04/23/19 04/22/19 10:57 05:05 20:53 POC Glucose 168 H 141 H 241 H 04/22/19 15:41 POC Glucose 189 H Hospitalist ROS - Review of Systems Constitutional: denies: fever Eyes: denies: pain ENT: denies: ear pain Respiratory: denies: cough Cardiovascular: denies: chest pain Gastrointestinal: denies: nausea Genitourinary: denies: dysuria Musculoskeletal: denies: neck pain Skin: denies: rash Neurological: denies: weakness - Medication Medications: Active Medications Generic Name Dose Route Start Last Admin Trade Name Freq PRN Reason Stop Dose Admin Aspirin 81 mg 04/21/19 21:00 04/23/19 09:47 Ecotrin PO 81 mg BID TIKA Administration Baclofen 5 mg 04/21/19 21:00 04/23/19 09:47 Lioresal PO 5 mg BID TIKA Administration Enoxaparin Sodium 40 mg 04/19/19 21:00 04/22/19 20:22 Lovenox SC 40 mg 2100 TIKA Administration Gabapentin 400 mg 04/21/19 21:00 04/23/19 09:47 Neurontin PO 400 mg BID TIKA Administration Hydralazine HCl 10 mg 04/19/19 19:00 04/21/19 22:05 Apresoline SLOW IVP 10 mg Q4H PRN Administration SBP > 170 or DBP > 100 Insulin Human Lispro 0 units 04/19/19 19:00 04/20/19 00:05 Humalog SC 4 unit .MODERATE SLIDING SC PRN Administration Moderate Correctional Scale Ketorolac Tromethamine 30 mg 04/21/19 18:00 04/23/19 15:40 Toradol IVP 04/26/19 18:01 Not Given Q6HR TIKA Losartan Potassium 100 mg 04/22/19 09:00 04/23/19 09:47 Cozaar PO 100 mg DAILY TIKA Administration Ondansetron HCl 4 mg 04/19/19 19:00 04/23/19 05:31 Zofran Odt PO 4 mg Q6H PRN Administration Nausea/Vomiting Ondansetron HCl 4 mg 04/19/19 19:00 04/21/19 05:30 Zofran IVP 4 mg Q6H PRN Administration Nausea Polyethylene Glycol 17 gm 04/22/19 09:00 04/23/19 09:49 Miralax PO 17 gm DAILY TIKA Administration Potassium Chloride 40 meq 04/23/19 14:15 04/23/19 15:39 K-Dur PO 04/23/19 16:15 40 meq NOW TIKA Administration Simvastatin 20 mg 04/21/19 21:00 04/22/19 20:23 Zocor PO 20 mg HS TIKA Administration Sodium Chloride 10 ml 04/19/19 19:00 04/22/19 20:23 Flush - Normal Saline IVF 10 ml PRN PRN Administration Saline Flush Tamsulosin HCl 0.4 mg 04/23/19 15:00 04/23/19 15:40 Flomax PO 04/23/19 17:00 0.4 mg NOW TIKA Administration - Exam General Appearance: awake alert Eye: anicteric sclera ENT: normocephalic atraumatic Neck: symmetric Heart: no murmur Respiratory: no wheezes Gastrointestinal: non-tender Extremities: no clubbing Neurological: cranial nerve grossly intact Psychiatric: A&O x 3 Hosp A/P - Plan Acute Cholecystitis /choledocholithiasis s/p ERCP and cholecystectomy , Lft trending down ,Continue pain meds , f/u LFT out pt Hypertension with hypertensive urgency , Bp mildly higher side today , continue home dose lasix and Continue PRN hydralazine , DM continue to monitor blood sugars h/o CVA Continue supportive care DVT/GI Prophyalxis Discussed with pt and family member and nursing staff Pt advised to continue home meds and no objections to dc
--- NOTE | 2019-04-23 18:36 | DIS ---
DATE OF ADMISSION: 04/19/2019 DATE OF DISCHARGE: 04/23/2019 Mr. Jones was admitted on 04/19/2019. He is being discharged on 04/23/2019. DISCHARGE DIAGNOSES: 1. Cholangitis. 2. Cholecystitis, cholelithiasis, and choledocholithiasis. 3. Left hemiparesis from previous stroke. 4. 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 5. History of coronary artery disease. Cardiac stress test in this hospitalization. Nuclear medicine stress test is negative for ischemia. Consultation with Dr. Wyman. 6. The patient lives with his family, who helps him with daily activities and helps him transfer as he is nonambulatory. 7. Past history of laparoscopic right colon resection for adenocarcinoma with subsequent leak repaired with a suture laparoscopically and drained and subsequent laparotomy, resection of the ileocolic anastomosis and revision. 8. Consultation with Dr. Michelle, where he underwent endoscopic retrograde cholangiopancreatography and sphincterotomy under the same anesthesia, underwent laparoscopic converted to open cholecystectomy, prohibitive laparoscopic approach due to extensive adhesions. HOSPITAL COURSE: A 69-year-old male patient, transferred from [facility] to [facility]. He had distended gallbladder and gallstones and has bilateral inguinal hernias. Common bile duct was 9 to 10 mm. White count 7, hemoglobin 13. Bilirubin elevated at 3.1. Bile duct was dilated. The patient was admitted with his prior history of coronary artery disease, followed by Dr. Calvillo with past interventions in [place] without adequate followup. Dr. Wyman saw the patient preoperatively. The patient underwent a stress test undergoing ERCP, laparoscopic converted to open cholecystectomy. Postoperatively, tolerated his diet, bilirubin improved and they were normal, and he has been discharged home to resume his home medications; 1. Metformin. 2. Losartan. 3. Bentyl. 4. Dulcolax. 5. MiraLAX. 6. Baclofen. 7. Gabapentin. 8. Tramadol p.r.n. given, although he does not have any pain, and Tylenol and ibuprofen will probably suffice. He will follow up with Dr. Calvillo in the future. The patient's catheter and central line removed prior to discharge. As he had poor IV access, a central line was required. Job ID: [id number]
[2019-04-24] MEDS ORDERED: Tamsulosin HCl 0.4 MG CAP PO SCH (09:00)
[2019-04-24] MEDS ORDERED: Furosemide 20 MG TAB PO SCH (09:00)
[2019-04-26] MEDS ORDERED: Ibuprofen 600 MG TAB PO PRN (23:59)
== END 2019-04-23 17:02 | disposition home or self-care (01) | DRG 854 ==
LOC: ERS 17:28 → SURG A 18:32
PROVIDERS: ADMIT Specialist; ATTEND Specialist
PROC: 02HV33Z Insertion of Infusion Device into Superior Vena Cava, Percutaneous Approach (ICD-10-PCS; principal; 2019-04-20)
PROC: 0FT40ZZ Resection of Gallbladder, Open Approach (ICD-10-PCS; 2019-04-21)
PROC: 0FJ44ZZ Inspection of Gallbladder, Percutaneous Endoscopic Approach (ICD-10-PCS; 2019-04-21)
PROC: 0FC98ZZ Extirpation of Matter from Common Bile Duct, Via Natural or Artificial Opening Endoscopic (ICD-10-PCS; 2019-04-21)
PROC: 0DJ08ZZ Inspection of Upper Intestinal Tract, Via Natural or Artificial Opening Endoscopic (ICD-10-PCS; 2019-04-21)
DX: A41.9 Sepsis, unspecified organism (principal); K80.42 Calculus of bile duct with acute cholecystitis without obstruction; I69.354 Hemiplegia and hemiparesis following cerebral infarction affecting left non-dominant side; E11.42 Type 2 diabetes mellitus with diabetic polyneuropathy; E87.6 Hypokalemia; I16.0 Hypertensive urgency; I25.10 Atherosclerotic heart disease of native coronary artery without angina pectoris; Z85.038 Personal history of other malignant neoplasm of large intestine; Z90.49 Acquired absence of other specified parts of digestive tract; I25.2 Old myocardial infarction; Z87.891 Personal history of nicotine dependence; Z88.8 Allergy status to other drugs, medicaments and biological substances; Z79.4 Long term (current) use of insulin; E78.5 Hyperlipidemia, unspecified
CPT/HCPCS: 36415; 36416; 71045; 74330; 78452; 80053; 85025; 88304; 93005; 93017; 94002; 96374; 96375; A9500; J0131; J0153; J0360; J0670; J1100; J1610; J1650; J1885; J2270; J2405; J2543; J2704; J3010; J3480; J3490; Q0162; Q0163; S0028

== ENCOUNTER 2019-04-24 09:04 | Inpatient (IN) | payer MEDICARE ==
[2019-04-24] MEDS ORDERED: Pantoprazole 40 MG VIAL ONE (09:33)
[2019-04-24] MEDS ORDERED: Ondansetron ODT 4 MG TAB ONE (09:33)
[2019-04-24 10:04] LABS: #Lymphocytes 1.2 thou/uL (1.20-3.40); #Monocytes 0.9 thou/uL (0.11-0.59); #Neutrophils 8.4 thou/uL (1.40-6.50); %Eosinophils 0.3 % (0.0-10.0); %Lymphocytes 11.3 % (21.0-51.0); %Monocytes 8.9 % (0.0-10.0); %Neutrophils 79.4 % (42.0-75.0); Hemoglobin 10.7 g/dL (14.0-18.0); Mean Corpuscular HGB CONC 32.5 g/dL (32.0-36.0); Mean Corpuscular Hemoglobin 26.7 pg (27.0-31.0); Mean Corpuscular Volume 82.1 fL (78.0-98.0); Mean Platelet Volume 7.3 fL (7.4-10.4); Platelet Count 212 thou/uL (130-400); RBC Distribution Width 13.3 % (11.5-14.5); White Blood Cell (WBC) Count 10.6 thou/uL (4.8-10.8)
[2019-04-24 10:30] LABS: ALT (SGPT) 88 U/L (8-55); AST (SGOT) 31 U/L (5-34); Albumin 3.4 g/dL (3.4-4.8); Alkaline Phosphatase 129 U/L (40-110); Anion Gap 18 mmol/L (10-20); BUN (Urea Nitrogen) 11 mg/dL (8.4-25.7); Bilirubin, Total 1.1 mg/dL (0.2-1.2); Calc. Creatinine Clearance 0 mL/min (70-130); Calcium 7.9 mg/dL (7.8-10.44); Carbon Dioxide 20 mmol/L (23-31); Chloride 106 mmol/L (98-107); Estimated GFR-MDRD Greater than 90; Globulin 2.4 g/dL (2.4-3.5); Glucose 227 mg/dL (80-115); Lipase 46 U/L (8-78); Potassium 3.6 mmol/L (3.5-5.1); Protein, Total 5.8 g/dL (5.8-8.1); Sodium 140 mmol/L (136-145)
--- NOTE | 2019-04-24 10:30 | CT ---
CT OF THE ABDOMEN AND PELVIS WITH IV CONTRAST INDICATION: Postop abdominal and chest pain; history of recent cholecystectomy COMPARISON: CT the abdomen and pelvis dated April 19, 2019 FINDINGS: ABDOMEN: Lung bases: There is a moderate right small left pleural effusion with bibasilar atelectasis. There i s prominent wall thickening involving the distal esophagus. There is a small hiatal hernia. Liver: There is free air seen within the upper abdomen overlying the right hepatic lobe, presumably r elated to the patient's recent cholecystectomy. There is a lobulated perihepatic fluid collection suspicious for perihepatic, subcapsular hemorrhage. There is also hemorrhage present within the gallb ladder fossa. There is a surgical skin stephania overlying the right upper quadrant of the abdomen. Small amount of gas is seen within the right upper quadrant abdominal wall. Gallbladder: Surgically absent Pancreas: Normal. Adrenal glands: Normal. Spleen: Normal. Kidneys and ureters: Normal. No hydronephrosis. Vasculature: There are severe vascular calcifications seen involving the visualized vasculature. Ther e is endovascular stent within the left common iliac artery. Lymph nodes:No lymphadenopathy. Free fluid in abdomen:No free fluid is evident. PELVIS: Small and large bowel: There is postsurgical change of a right hemicolectomy and ileocolonic anastomo sis present within the right upper quadrant of the abdomen. This is stable to the prior exam. Appendix:Surgically absent Bladder: Normal. Rectal and perirectal soft tissues:Normal. Reproductive structures: Mild prostate enlargement Free fluid in pelvis: No free fluid is evident. Lymphadenopathy pelvis: No lymphadenopathy is evident. Osseous structures: No acute osseous abnormality. No destructive osteolytic or osteoblastic lesion i s identified. There is scattered degenerative and osteoarthritic changes. Soft tissues:Normal. IMPRESSION: 1. Hemorrhage seen within the gallbladder fossa and surrounding the right hepatic lobe. No active ext ravasation noted. 2. Free air within the upper abdomen is likely postoperative in nature related to patient's recent ch olecystectomy. Recommend continued follow-up. 3. Moderate right small left pleural effusion. 4. Wall thickening involving the distal esophagus suspicious for mild esophagitis.
--- NOTE | 2019-04-24 10:40 | RAD ---
PORTABLE CHEST: Date: 04/24/19 PROVIDED CLINICAL HISTORY: Chest pain. FINDINGS: Comparison with 04/20/19. Cardiac and mediastinal silhouette is unchanged in appearance. Right basilar pleural and/or parenchym al opacities noted. Left lung appears clear. No pneumothorax evident. IMPRESSION: Right basilar pleural and/or parenchymal opacity. This may reflect pleural fluid with adjacent atelec tasis or infiltrate. Follow-up is recommended. POS: TPC
[2019-04-24 10:47] LABS: CKMB 1.7 ng/mL (0-6.6)
[2019-04-24] MEDS ORDERED: Ondansetron PF 4 MG/2 ML Vial ONE (11:21)
[2019-04-24] MEDS ORDERED: ISOVUE-370 76%-LOCM 1 ML ONE (12:00)
[2019-04-24 13:35] LABS: Troponin I Less than 0.010 ng/mL (< 0.028)
--- NOTE | 2019-04-24 15:16 | NM ---
Radionucleotide hepatobiliary scan HISTORY: Abdominal pain. Recent cholecystectomy. Evaluate for leak. FINDINGS: Early images show physiologic uptake of radiotracer throughout the hepatic parenchyma. Upta ke is evident within the small bowel at 8 minutes. Imaging carried out to 60 minutes shows little remaining uptake within the liver and biliary system w ith most of the uptake in the small bowel. No radiotracer uptake is seen throughout of the biliary system/small bowel. IMPRESSION: No evidence of biliary leak.
[2019-04-24 16:03] LABS: Lactic Acid 1.6 mmol/L (0.5-2.2)
[2019-04-24 16:12] LABS: Troponin I Less than 0.010 ng/mL (< 0.028)
[2019-04-24] MEDS ORDERED: Ondansetron ODT 4 MG TAB SL PRN (16:21)
[2019-04-24] MEDS ORDERED: Ondansetron PF 4 MG/2 ML Vial IVP PRN (16:21)
[2019-04-24] MEDS ORDERED: Sodium Chloride 0.9% 1,000 ML IV SCH (16:21)
[2019-04-24] MEDS ORDERED: Acetaminophen 325 MG TAB PO PRN (16:35)
[2019-04-24] MEDS ORDERED: Senokot S 8.6-50 MG TAB PO PRN (16:35)
[2019-04-24] MEDS ORDERED: Promethazine HCl 12.5 MG in Sodium Chloride 0.9% 50 ML IVPB PRN (16:42)
[2019-04-24] MEDS ORDERED: Sodium Chloride 0.45% 1,000 ML IV SCH (16:45)
[2019-04-24] MEDS ORDERED: traMADol HCl 50 MG TAB PO PRN (16:47)
[2019-04-24] MEDS ORDERED: Ketorolac Tromethamine 30 MG/ML VIAL IVP PRN (17:27)
[2019-04-24] MEDS ORDERED: chlorproMAZINE HCl 50 MG/2 ML AMP IM PRN (17:30)
[2019-04-24] MEDS: Promethazine HCl 25 MG/ML VIAL SLOW IVP PRN (17:49)
[2019-04-24] MEDS: hydrALAZINE 20 MG/ML VIAL SLOW IVP PRN (17:49)
[2019-04-24] MEDS: Lactated Ringer's 1,000 ML IV SCH (17:50)
--- NOTE | 2019-04-24 18:02 | PRG ---
DATE OF SERVICE: SUBJECTIVE: Montez Jones is readmitted to the medical service today. He was discharged yesterday and did not have any abdominal pain. He began having abdominal pain, nausea, vomiting, and reported hematemesis. In the emergency room, his hemoglobin was noted to be 10.7 and he was discharged with a hemoglobin of 10.2. Because of his nausea, vomiting, abdominal pain complaints, he underwent a CAT scan of the abdomen and pelvis, revealing a subcapsular fluid collection around the liver and some hepatic gallbladder bed fluid collection. His liver function tests were normal. Nonetheless, a HIDA scan obtained, revealed absence of a bile leak. During his operation, he did have some adhesions over the dome of his liver and the bleeding over the dome of the liver and around the liver as expected postoperatively. In fact, all findings on his CAT scan are expected postoperatively. There is no evidence of infection. His white count was 10.6. The patient continues vomiting. NG tube was attempted in the emergency room, but it was unsuccessful. When I walked in the room on telemetry, he is having emesis into a bowl. I have talked to him about having an NG tube, but he refuses. He is having problems with hiccups and he has had this problem before. We will plan to treat this with p.r.n. Thorazine intermuscular. On his CAT scan, he has some fluid in his stomach, he does have moderate stool in his right colon and transverse colon, small bowel loops are not significantly distended, but he does have air fluid levels in his stomach. When I was called the emergency room, I was told he had hematemesis and given the findings, I suggested he be admitted to the medical service and GI consult given, although when I am seeing him now, his emesis is brownish and not bloody. OBJECTIVE: LUNGS: Clear to auscultation. CARDIAC: Regular rate and rhythm without murmur, rub, or gallop. ABDOMEN: Soft, mild tenderness. Postoperative surgical wound looks good. Open cholecystectomy wound looks good without infection. ASSESSMENT AND PLAN: Postoperative nausea and vomiting, probably related to gastric emptying. The patient has had a prior stroke with left hemiparesis. He is paralyzed in his right arm due to cervical spine problems and surgery related. He has been cared for at home by his family who are very attentive. At this point, we would recommend n.p.o. status, IV fluid hydration. At home, the family does get him up out of bed into a chair and he spends most of the day in a wheelchair. We would continue to get him out of bed into a chair. I will follow him along with the Medical Service. Currently, his hemoglobin is stable, I do not think GI consultation is necessary. He may need an NG tube if emesis persists. Job ID: [id number]
[2019-04-24] MEDS ORDERED: Dextrose 50% Abboject 50 ML SYRINGE IVP PRN (18:05)
[2019-04-24] MEDS ORDERED: Dextrose 5% in Water 1,000 ML IV PRN (18:05)
[2019-04-24 18:31] LABS: Band 1 % (5-11); Hemoglobin 9.5 g/dL (14.0-18.0); Hypochromia SLIGHT = 6-15 cells (100X) (0-5/hpf); Lymphocytes 17 % (21-51); MDiff Complete? YES; Mean Corpuscular HGB CONC 31.9 g/dL (32.0-36.0); Mean Corpuscular Hemoglobin 25.9 pg (27.0-31.0); Mean Corpuscular Volume 81.1 fL (78.0-98.0); Mean Platelet Volume 7.4 fL (7.4-10.4); Monocytes 10 % (0-10); Myelocyte 1 % (0-0); Neutrophil 70 % (42-75); Platelet Count 222 thou/uL (130-400); Platelet Morphology Comment Appears Adequate; Polychromasia MODERATE = 3-4 cells (100X) (0-2/hpf); RBC Distribution Width 13.2 % (11.5-14.5); Reactive Lymphocytes 1 % (0-10); Red Blood Cell (RBC) Count 3.68 mill/uL (4.70-6.10); White Blood Cell (WBC) Count 11.4 thou/uL (4.8-10.8)
--- NOTE | 2019-04-24 19:35 | PDOC.EVN ---
Event Note - Event Note Event Note: Responded to [facility] [employer] Patient unresponsive after getting hydralazine for BP of 180 per nursing. Had coffee ground emesis with no clots on his gown per nursing staff. Hb stable at 9 this am. Had recent cholecystectomy few days ago BP 106/ HR 127, RR 16, o2 sat 96% room air, temp 98.7 Patient moaning, responds to voice, seems very pale. Pupils reactive, weak pulse , lungs CTAB, Abdomen soft nontender nondistended, extremities no edema Patient appears pale CT: hemorrhage in gallbladder, per Dr. Rossi this am nothing to do EKG shows new St depressions. Give 1L IV fluid bolus. Spoke to Dr. Rossi about central line and NG tube. repeat CBC and troponin and CMP ordered. Blood culture positive for entreobacter, vanc and meropenem ordered per Dr. beckman. Dr. Beckman wanted transfer to ICU. Spoke to Dr. Calvillo on phone who will call ICU. Per Dr. Beckman GI aware of patient
[2019-04-24 19:50] LABS: #Eosinphils 0.1 thou/uL (0.0-0.7); #Lymphocytes 1.4 thou/uL (1.20-3.40); #Monocytes 1.1 thou/uL (0.11-0.59); #Neutrophils 7.2 thou/uL (1.40-6.50); %Basophils 0.2 % (0.0-1.0); %Eosinophils 0.5 % (0.0-10.0); %Lymphocytes 13.9 % (21.0-51.0); %Monocytes 10.8 % (0.0-10.0); %Neutrophils 74.5 % (42.0-75.0); Hemoglobin 9.6 g/dL (14.0-18.0); Mean Corpuscular HGB CONC 34.2 g/dL (32.0-36.0); Mean Corpuscular Hemoglobin 27.8 pg (27.0-31.0); Mean Corpuscular Volume 81.2 fL (78.0-98.0); Mean Platelet Volume 7.7 fL (7.4-10.4); Platelet Count 195 thou/uL (130-400); RBC Distribution Width 13.3 % (11.5-14.5); Red Blood Cell (RBC) Count 3.44 mill/uL (4.70-6.10); White Blood Cell (WBC) Count 9.7 thou/uL (4.8-10.8)
[2019-04-24] MEDS ORDERED: Morphine 4 MG/ML VIAL SLOW IVP PRN (19:50)
[2019-04-24 19:57] LABS: ALT (SGPT) 69 U/L (8-55); AST (SGOT) 26 U/L (5-34); Albumin 3.3 g/dL (3.4-4.8); Alkaline Phosphatase 110 U/L (40-110); Anion Gap 20 mmol/L (10-20); BUN (Urea Nitrogen) 10 mg/dL (8.4-25.7); Bilirubin, Total 1.1 mg/dL (0.2-1.2); Calc. Creatinine Clearance 96 mL/min (70-130); Calcium 7.7 mg/dL (7.8-10.44); Carbon Dioxide 18 mmol/L (23-31); Chloride 108 mmol/L (98-107); Estimated GFR-MDRD Greater than 90; Globulin 2.3 g/dL (2.4-3.5); Glucose 218 mg/dL (80-115); Potassium 3.8 mmol/L (3.5-5.1); Protein, Total 5.6 g/dL (5.8-8.1); Sodium 142 mmol/L (136-145)
[2019-04-24 20:01] LABS: CKMB 1.9 ng/mL (0-6.6); Troponin I 0.034 ng/mL (< 0.028)
[2019-04-24] MEDS ORDERED: Metoprolol Tartrate 5 MG/5 ML VIAL ONE (20:23)
[2019-04-24] MEDS ORDERED: Metoprolol Tartrate 5 MG/5 ML VIAL IVP SCH (20:30)
[2019-04-24] MEDS: Meropenem 2 GM in Sodium Chloride 0.9% 100 ML IVPB SCH (20:32)
[2019-04-24] MEDS ORDERED: Metoprolol Tartrate 5 MG/5 ML VIAL IVP PRN (20:41)
[2019-04-24] MEDS ORDERED: Aspirin 300 MG Suppository PR SCH (20:45)
--- NOTE | 2019-04-24 21:21 | OP ---
DATE OF PROCEDURE: 04/24/2019 PREOPERATIVE DIAGNOSIS: Poor IV access, possible cardiac event. POSTOPERATIVE DIAGNOSIS: Poor IV access, possible cardiac event. PROCEDURE PERFORMED: Right subclavian vein triple-lumen catheter. ANESTHESIA: 1% xylocaine local anesthesia. DESCRIPTION OF PROCEDURE: With the patient at bedside, right upper clavicular area was prepared with ChloraPrep and draped in routine fashion. Local anesthetic was infiltrated into the skin and subcutaneous tissue about the operative site. Infraclavicular approach obtained to cannulate the right subclavian vein, threading the J-wire and a stab incision made. dilator placed and removed. Triple-lumen catheter, distal port placed and J-wire removed. Each port aspirated blood and flushed with saline solution. Catheter was secured with 2 interrupted sutures of 3-0 silk. Sterile dressing applied. Job ID: [id number]
[2019-04-24] MEDS: Vancomycin HCl 1 GM in Premix Bag 1 BAG IVPB SCH (21:30)
--- NOTE | 2019-04-24 21:54 | RAD ---
XR Abdomen 1 View/KUB HISTORY: NG tube placement. COMPARISON: None. FINDINGS: An NG tube is seen with the tip within this region of the body and antrum of the stomach. T he tube appears kinked. Postoperative changes of the abdomen are seen. IMPRESSION: NG tube in the stomach as described above
--- NOTE | 2019-04-24 23:36 | HP ---
PRESENTING COMPLAINT: Intractable nausea, vomiting. HISTORY OF PRESENT ILLNESS: The patient with past medical history of diabetes mellitus; hypertension; peripheral vascular disease, status post stenting; coronary artery disease with history of myocardial infarction; history of colon cancer, status post right hemicolectomy. The patient was recently admitted to hospital and was discharged yesterday, status post ERCP and open cholecystectomy with adhesions, and the patient was tolerating diet and was discharged yesterday. As per the patient, he was tolerating diet when he was here. When he left, he started having throwing up of all night, and this morning, he started having coffee-ground emesis, also had a chest pain last night. The patient had a bowel movement 2 weeks ago, complains of periumbilical area pain and hiccups. Denies any urinary complaints. Denies any worsening swelling of the feet. The patient started on protonix drip and Surgery consulted. Hepatobiliary scan performed in the emergency room was normal, and the CT scan showed hemorrhage seen within the gallbladder fossa and surrounding the right hepatic lobe, no active extravasation noted and free air in the upper abdomen with moderate right and small left pleural effusion. The patient is being admitted for further evaluation. The patient still feels nauseous. SYSTEMIC REVIEW: As mentioned above. PAST MEDICAL HISTORY: As mentioned above. PAST SURGICAL HISTORY: 1. History of right hemicolectomy. 2. History of peripheral vascular stenting. SOCIAL HISTORY: Denies smoking, alcohol abuse, drug abuse. ALLERGIES: ASPIRIN. HOME MEDICATIONS: 1. Losartan. 2. Metformin. 3. Simvastatin. 4. Baclofen. 5. Furosemide. 6. Gabapentin. 7. Aspirin. 8. Acetaminophen. 9. Ibuprofen. PHYSICAL EXAMINATION: VITAL SIGNS: On monitoring in the ED shows blood pressure 160/110, pulse 80, temperature 97.6, oxygen saturation 99%. GENERAL: The patient with baseline contractures, lying in bed comfortably, not in any distress. HEENT: Conjunctivae normal. Oral mucosa moist. NECK: Supple. No JVD. No lymphadenopathy. CHEST: Normal vesicular breathing bilaterally. No rhonchi. No wheezing. HEART: Sounds normal. No murmur. No gallop. No rub. ABDOMEN: Mildly distended. Incision site is clean. Tenderness on deep palpation. No rebound or guarding. EXTREMITIES: Mild edema of feet. Contractures on the left side. LABORATORY AND DIAGNOSTIC DATA: CBC unremarkable except hemoglobin 10.7. Baseline hemoglobin on 04/22 was 10.2, platelet 212. CMP unremarkable. ALT 88, AST 31, alkaline phosphatase 129. Troponin 0.035, repeat troponin 0.010. Lipase 46. HIDA scan is negative for acute finding. No evidence of biliary leak. CT scan, hemorrhage seen within the gallbladder fossa and surrounding the right hepatic lobe, no active extravasation noted. Free air within the upper abdomen is likely postoperative in nature related to the patient's recent cholecystectomy. Moderate right and small left pleural effusion. Wall thickening involving the distal esophagus suspicious for mild esophagitis. IMPRESSION: 1. Acute upper GI bleed, most likely related to esophagitis as the patient had intractable nausea, vomiting since last night, and later on this morning, started having coffee-ground emesis. The patient started on Protonix drip. Hemoglobin is currently stable. Dr. Torres being consulted from the ED. We will await further evaluation. 2. Right gallbladder fossa hemorrhage, most likely secondary to recent cholecystectomy. However, no extravasation noted. HIDA scan is negative for biliary leak. The patient's H and H are currently stable. We will continue to monitor clinically. Surgery been consulted for further evaluation. 3. Chest pain, most likely secondary to retching. The patient had mild positive troponin last night. EKG with sinus tachycardia. Troponins are trending down. Currently, denies any chest pain. We will continue to trend serial troponins. 4. Moderate right pleural effusion. The patient takes Lasix at home. We will hold if possible related to fluid overload. We will hold dialysis at present as the patient is currently n.p.o. We will check repeat chest x-ray in the morning. 5. Diabetes mellitus. We will continue to monitor blood sugar. 6. Hypertension with hypertensive urgency. We will continue hydralazine as needed. Continue to monitor blood pressure. 7. History of cerebrovascular accident with left hemiparesis. The patient is bed-bound status. Continue supportive care. 8. History of peripheral vascular disease, status post stenting. No acute issues at present. 9. Advanced directive discussed with the patient and son, who is present at bedside. The patient is a full code. Job ID: [id number] MTDD
[2019-04-25] MEDS: Lactated Ringer's 1,000 ML IV SCH ×3 (00:55→19:24)
[2019-04-25] MEDS: Pantoprazole 80 MG, Admixture Fee 1 EACH in Sodium Chloride 0.9% 100 ML IVPB SCH ×2 (00:56→09:37)
--- NOTE | 2019-04-25 01:24 | CON ---
DATE OF CONSULTATION: 04/24/2019 CHIEF COMPLAINT: Vomited blood. HISTORY OF PRESENT ILLNESS: Mr. Jones is a 69-year-old man who was just discharged from the hospital yesterday. He had undergone ERCP and sphincterotomy for choledocholithiasis. He underwent open cholecystectomy following the ERCP. He did well postoperatively and was tolerating his diet without abdominal pain. He was discharged home yesterday. Today, he reportedly vomited with possible dark blood. He had some chest pain associated with that. He was admitted and placed on IV proton pump inhibitor. He did vomit again with some dark material this evening. His blood pressure was noted to be high. He was given hydralazine. Following the hydralazine, he dropped his blood pressure and had some altered mental status along with that. He also had some abnormal EKG changes for which Cardiology was consulted. He is now on the intensive care unit and is awake and oriented x3. He has no abdominal pain at this time. PAST MEDICAL HISTORY: Stroke, diabetes mellitus, hypertension, coronary artery disease. He has a history of colon cancer status post colon resection in 2011 and has had no followup colonoscopy since then. PAST SURGICAL HISTORY: Right hemicolectomy. He had terminal ileum resection and redo anastomosis after that. Appendectomy, cervical spine surgery, recent open cholecystectomy. FAMILY HISTORY: Negative for GI malignancy. SOCIAL HISTORY: No alcohol, tobacco, or drugs. He lives at home with his son. ALLERGIES: ASPIRIN. CURRENT MEDICATIONS: 1. Meropenem. 2. Pantoprazole. 3. Vancomycin. At home, he had been on 1. Metformin. 2. Simvastatin. 3. Losartan. 4. Ibuprofen. 5. Gabapentin. 6. Furosemide. 7. Baclofen. 8. Aspirin. REVIEW OF SYSTEMS: Negative x10 systems reviewed, except as stated in history of present illness. PHYSICAL EXAMINATION: VITAL SIGNS: Blood pressure 109/66, his pulse is in the 114 range. He is afebrile. Temperature 98.7. GENERAL: He is in no acute distress. He is oriented x3, and appropriately responsive. HEENT: His eyes have no scleral icterus. Oropharynx is clear without lesions. No cervical or supraclavicular lymphadenopathy. He has an NG tube placed and there is dark material returned from that. ABDOMEN: Soft. No significant tenderness now. His bowel sounds are present. EXTREMITIES: No lower extremity edema. LABORATORY DATA: White blood cell count 9.7, hemoglobin 9.6, his hemoglobin on 04/22/2019 was 10.2, platelets 195. Creatinine 0.8, bilirubin 1.1, AST 26, ALT 69, alkaline phosphatase 110, albumin 3.3. IMPRESSION: 1. Possible hematemesis. He did have reported dark bloody emesis. This is likely from gastritis with recent hospitalization and procedures. He did have a recent ERCP with sphincterotomy and a post sphincterotomy bleed has to be considered. There is no red blood from the NG aspirate. On rectal exam, currently he has light brown stool. There is nothing currently that suggests a significant post sphincterotomy bleed now. His hemoglobin is pretty stable. We will treat this with proton pump inhibitor. 2. Recent choledocholithiasis, status post ERCP and sphincterotomy and balloon stone extraction. 3. Recent cholecystitis status post open cholecystectomy. 4. History of stroke with contractures and has been bedbound, but cared for at home by his son. 5. Acute drop in his blood pressure this evening after a dose of hydralazine. He had altered mental status and a change in his EKG associated with that. Currently, his mental status has returned to baseline. RECOMMENDATIONS: 1. Proton pump inhibitor. 2. Follow trend of his hemoglobin. Job ID: [id number]
--- NOTE | 2019-04-25 01:38 | CON ---
DATE OF CONSULTATION: HISTORY OF PRESENT ILLNESS: The patient is a 69-year-old gentleman with a history of several myocardial infarctions, who presented after he became hypotensive and was transferred to the ICU. The patient presented to the hospital with cholelithiasis. He underwent a preoperative adenosine stress test, it revealed no evidence of significant ischemia. The patient underwent surgery 2 days ago. He went home when he re-presented to the hospital with abdominal discomfort and weakness. In the emergency room, the patient did report having substernal chest discomfort. On the floor, the patient's blood pressure became elevated. He was receiving hydralazine and his blood pressure fell. He was transferred to the ICU. The patient denies having any present chest discomfort. PAST MEDICAL HISTORY: Significant for 1. Myocardial infarction. 2. Hypertension. 3. Cholelithiasis. 4. CVA. PAST SURGICAL HISTORY: . SOCIAL HISTORY: Nonsmoker. MEDICATIONS: See nursing list. PHYSICAL EXAMINATION: GENERAL: This is an ill-appearing gentleman. VITAL SIGNS: Blood pressure 131/76. NECK: No jugular venous distention. LUNGS: Clear to auscultation. HEART: Regular rate and rhythm. Normal S1, S2. ABDOMEN: Distended with a surgical scar. EXTREMITIES: Show no edema. LABORATORY DATA: White blood cell count 8.7, hemoglobin 9.6, hematocrit 27.9, and his platelets are 195. His sodium is 142, potassium 3.8, chloride 108, bicarbonate 18, BUN 10, creatinine 0.81, glucose 218. Troponin 0.34. EKG revealed sinus tachycardia with a marked ST-T wave abnormality suggestive of ischemia. IMPRESSION: 1. Probable non-Q-wave myocardial infarction. 2. History of multiple myocardial infarctions. 3. History of . 4. History of cerebrovascular accident. 5. Hypertension. This gentleman developed acute hypotension after receiving hydralazine. The patient's initial EKG was unremarkable. Followup electrocardiogram showed a marked ST abnormality suggestive of subendocardial injury. The patient was transferred to ICU. I treated the patient with IV Lopressor. His blood pressure and heart rate have improved. His EKG shows marked lessening of his ST-T wave abnormality. The patient will continue to be monitored on ICU where we will follow this patient with you. Job ID: [id number]
[2019-04-25] MEDS: Acetaminophen 1,000 MG in Premix Bag 1 BAG IVPB PRN ×2 (02:10→09:41)
[2019-04-25] MEDS: Meropenem 2 GM in Sodium Chloride 0.9% 100 ML IVPB SCH ×3 (04:04→20:04)
[2019-04-25 04:42] LABS: Band 2 % (5-11); Hemoglobin 7.3 g/dL (14.0-18.0); Hypochromia SLIGHT = 6-15 cells (100X) (0-5/hpf); Lymphocytes 24 % (21-51); MDiff Complete? YES; Mean Corpuscular HGB CONC 32.8 g/dL (32.0-36.0); Mean Corpuscular Hemoglobin 26.9 pg (27.0-31.0); Mean Corpuscular Volume 81.9 fL (78.0-98.0); Mean Platelet Volume 6.8 fL (7.4-10.4); Metamyelocyte 1 % (0-0); Monocytes 11 % (0-10); Neutrophil 59 % (42-75); Nucleated RBC 1 % (0); Platelet Count 179 thou/uL (130-400); Platelet Morphology Comment Appears Adequate; RBC Distribution Width 13.3 % (11.5-14.5); Reactive Lymphocytes 3 % (0-10); Red Blood Cell (RBC) Count 2.72 mill/uL (4.70-6.10); Target Cells SLIGHT = 2-5 cells (100X) (0-1/hpf); White Blood Cell (WBC) Count 9.1 thou/uL (4.8-10.8)
[2019-04-25 04:47] LABS: Anion Gap 10 mmol/L (10-20); BUN (Urea Nitrogen) 10 mg/dL (8.4-25.7); Calc. Creatinine Clearance 91 mL/min (70-130); Calcium 7.6 mg/dL (7.8-10.44); Carbon Dioxide 27 mmol/L (23-31); Chloride 109 mmol/L (98-107); Estimated GFR-MDRD Greater than 90; Glucose 204 mg/dL (80-115); Potassium 3.3 mmol/L (3.5-5.1); Sodium 143 mmol/L (136-145)
[2019-04-25 06:36] LABS: CKMB 1.4 ng/mL (0-6.6); Troponin I 0.016 ng/mL (< 0.028)
--- NOTE | 2019-04-25 07:19 | RAD ---
XR Chest 1 View History: Central line placement Comparison: Radiograph same day Findings: Uncomplicated placement right subclavian central venous catheter tip projecting over the ri ght atrium. Moderate right and small left effusion. No pneumothorax. Enteric tube tip poorly seen. Impression: Uncomplicated placement right subclavian central venous catheter.
--- NOTE | 2019-04-25 07:45 | RAD ---
XR Chest 1 View History: Pleural effusion Comparison: Radiograph prior day Findings: Redistribution large right layering pleural effusion which is now more along the right lung base. Left subclavian vascular stent is present. Cardiac silhouette and mediastinal contours are similar. Central venous catheter is similar. Impression: Redistribution layering right pleural effusion. Pleural fluid volume is similar.
--- NOTE | 2019-04-25 07:47 | RAD ---
XR Abdomen 2 View History: Nausea and vomiting Comparison: Abdomen radiograph prior day Findings: The surgical stephania right hemithorax are similar. Enteric tube appears to be kinked at the gastric antrum with tip at the body. No dilated air-filled loops of large or small bowel. Right layering pleural effusion. Contrast within the urinary bladder. Phleboliths in the pelvis. Left iliac vascular stent and likely a right iliac vascular stent. Impression: 1. Similar appearance of the enteric tube which is kinked in the gastric fundus with tip in gastric b albert. 2. Layering right pleural effusion. 3. Trace intraperitoneal free air, not unexpected given recent surgery.
[2019-04-25] MEDS: Vancomycin HCl 1 GM in Premix Bag 1 BAG IVPB SCH ×2 (08:37→20:43)
--- NOTE | 2019-04-25 09:32 | CON ---
DATE OF CONSULTATION: 04/25/2019 REASON FOR CONSULTATION: ICU care. HISTORY OF PRESENT ILLNESS: The patient is a 69-year-old male, who was readmitted to the hospital yesterday with hematemesis. He was upgraded to the ICU yesterday because of altered mental status and suspected stroke. Those symptoms now resolved and he is back to baseline. Apparently, he had undergone ERCP and sphincterotomy earlier in the week. He also had an open cholecystectomy performed. He was sent to the ICU yesterday for a Code Green. He says he is now back to his baseline and has no acute complaints other than dry mouth. PAST MEDICAL HISTORY: 1. Stroke with left-sided hemiparesis. 2. Diabetes mellitus. 3. Hypertension. 4. Coronary artery disease. 5. Colon cancer. PAST SURGICAL HISTORY: 1. Right hemicolectomy. 2. Terminal ileum resection with reanastomosis. 3. Appendectomy. 4. Open cholecystectomy. 5. Cervical spine surgery. FAMILY MEDICAL HISTORY: Unremarkable. SOCIAL HISTORY: Nonsmoker. Does not consume alcohol. ALLERGIES: ASPIRIN. MEDICATIONS: Current inpatient medications; 1. Toradol. 2. Meropenem. 3. Pantoprazole. 4. Vancomycin. Outpatient medications; 1. Gabapentin. 2. Aspirin. 3. Metformin. 4. Simvastatin. 5. Losartan. 6. Ibuprofen. 7. Furosemide. 8. Baclofen. 9. Acetaminophen. REVIEW OF SYSTEMS: He has had no fever, chills, or chest pain. He has had hematemesis and nausea. PHYSICAL EXAMINATION: VITAL SIGNS: Temperature 99.6, pulse 96, blood pressure 165/88, and O2 saturation 96%. Intake 1940, output 500. GENERAL: He is awake, joking around. No acute distress. HEENT: Unremarkable. NECK: No adenopathy or JVD. LUNGS: Clear bilaterally. CARDIOVASCULAR: S1 and S2 is regular without audible murmur. ABDOMEN: Open cholecystectomy scar in the right upper quadrant is sutured and appears to be healing well. His abdomen is distended, but bowel sounds are present. EXTREMITIES: No clubbing, cyanosis, or edema. IMAGING STUDIES: His chest x-ray shows central line that was placed in the right subclavian region. He has a small right effusion. The x-ray looks generally fluid overloaded. LABORATORY DATA: White blood cell count 9.1, hematocrit 22.3, and platelet count 179. Sodium 143, potassium 3.3, chloride 109, CO2 of 27, BUN 10, creatinine 0.8, and glucose 204. BNP is 82. ASSESSMENT: 1. Stable cardiopulmonary status, status post Code Green yesterday for altered mental status. 2. Status post open cholecystectomy. 3. Anemia due to blood loss. PLAN: He is currently on antibiotics for suspected abdominal infection. He could probably stand to be diuresed if okay with the other consultants on the case. He has no acute pulmonary concerns. We will be happy to follow with you. Job ID: [id number]
[2019-04-25] MEDS ORDERED: Nitroglycerin 0.4mg/Hour PATCH TOP SCH ×3 (11:00→12:00)
[2019-04-25] MEDS ORDERED: Aspirin 300 MG Suppository PR SCH ×2 (11:15→21:00)
[2019-04-25] MEDS ORDERED: Furosemide 20 MG/2 ML VIAL SLOW IVP SCH (11:15)
[2019-04-25] MEDS ORDERED: Aspirin Chewable 81 MG TAB PER TUBE SCH (11:15)
--- NOTE | 2019-04-25 11:41 | PDOC.HOSPP ---
- Subjective Encounter Date: 04/25/19 Encounter Time: 11:41 Subjective: Mr. Jones was seen today in follow-up of Unstable and GI bleed. He currently has an NG tube in place. He denies feeling nauseated, and denies any diarrhea. There has been no evidence of further bleeding. He denies chest pain or shortness of breath. - Objective Vital Signs & Weight: Vital Signs (12 hours) Temp Pulse Ox 04/25/19 08:00 99.6 F 98 04/25/19 04:00 98.4 F 04/25/19 00:00 98.6 F Weight Weight 175 lb 14.862 oz Most Recent Monitor Data Heart Rate from ECG 80 NIBP 166/93 NIBP BP-Mean 117 Respiration from ECG 20 SpO2 98 I&O: 04/24/19 04/25/19 04/26/19 06:59 06:59 05:59 Intake Total 1940 300 Output Total 500 250 Balance 1440 50 Result Diagrams: 04/25/19 04:10 04/25/19 04:10 Additional Labs: Accuchecks 04/24/19 04/24/19 18:46 18:14 POC Glucose 246 H 226 H Hospitalist ROS - Medication Medications: Active Medications Generic Name Dose Route Start Last Admin Trade Name Freq PRN Reason Stop Dose Admin Chlorpromazine HCl 25 mg 04/24/19 17:30 04/24/19 18:25 Thorazine IM 25 mg Q6H PRN Administration Hiccups Furosemide 20 mg 04/25/19 11:15 04/25/19 11:35 Lasix SLOW IVP 04/25/19 13:00 20 mg NOW TIKA Administration Hydralazine HCl 10 mg 04/24/19 16:44 04/24/19 17:49 Apresoline SLOW IVP 10 mg Q4H PRN Administration Hypertension Pantoprazole Sodium 80 mg/ 100 mls @ 10 mls/hr 04/24/19 12:00 04/25/19 09:37 Miscellaneous Medication 1 IVPB 100 mls each/ Sodium Chloride INF TIKA Administration Acetaminophen 1,000 mg/ Device 100 mls @ 400 mls/hr 04/24/19 17:27 04/25/19 09:41 IVPB 04/25/19 17:28 100 mls Q6H PRN Administration Fever/Mild Pain Lactated Ringer's 1,000 mls @ 120 mls/hr 04/24/19 17:30 04/25/19 00:55 Lactated Ringer's IV 1,000 mls .[id number] TIKA Administration Meropenem 2 gm/ Sodium 100 mls @ 100 mls/hr 04/24/19 20:00 04/25/19 04:04 Chloride IVPB 100 mls 0400,1200,2000 TIKA Administration Vancomycin HCl 1 gm/ Device 200 mls @ 200 mls/hr 04/24/19 21:00 04/25/19 08: 37 IVPB 200 mls Q12HR TIKA Administration Metoprolol Tartrate 5 mg 04/24/19 20:41 04/25/19 02:01 Lopressor IVP 5 mg Q4H PRN Administration HR>100 Promethazine HCl 6.25 mg 04/24/19 17:19 04/24/19 17:49 Phenergan SLOW IVP 6.25 mg Q6H PRN Administration Nausea Sodium Chloride 10 ml 04/24/19 21:00 04/25/19 08:37 Flush - Normal Saline IVF 10 ml Q12HR TIKA Administration - Exam Eye: PERRL, anicteric sclera Heart: RRR, no murmur, no gallops, no rubs, normal peripheral pulses Respiratory: CTAB, no wheezes, no rales, no ronchi, normal chest expansion Gastrointestinal: soft, non-tender (mildly distended, bowel sounds are diminished), normal bowel sounds Extremities: no cyanosis, no clubbing, 1+ LE edema Hosp A/P (1) GI bleed Code(s): K92.2 - GASTROINTESTINAL HEMORRHAGE, UNSPECIFIED Status: Acute (2) Acute blood loss anemia Code(s): D62 - ACUTE POSTHEMORRHAGIC ANEMIA Status: Acute (3) Unstable angina Status: Acute (4) Hypertension Code(s): I10 - ESSENTIAL (PRIMARY) HYPERTENSION Status: Chronic (5) Diabetes mellitus type 2 in nonobese Code(s): E11.9 - TYPE 2 DIABETES MELLITUS WITHOUT COMPLICATIONS Status: Chronic (6) History of cholecystectomy Code(s): Z90.49 - ACQUIRED ABSENCE OF OTHER SPECIFIED PARTS OF DIGESTIVE TRACT Status: Chronic - Plan * GI- bleed- this is felt to be due to gastritis, his H&H has dropped a bit- discussed with GI * Will transfuse a unit now ( due to recent USA) and re-check * Continue IV Protonix * Unstable Angina- treat medically- patient is being managed by Cardiology * Recent Cholecystectomy, and sphincterotomy- stable * Nutrition- he is still NPO- if the NG tube is not removed today- will need to start TPN * HTN- blood pressure is a bit elevated- will monitor * DM- blood glucose is a bit elevated- ( patient has refused SSI) - will monitor , may need to add low dose long acting insulin
--- NOTE | 2019-04-25 13:03 | PRG ---
DATE OF SERVICE: 04/25/2019 SUBJECTIVE: Mr. Jones has no abdominal pain. No nausea or vomiting. No bowel movement today. OBJECTIVE: VITAL SIGNS: Temperature 99.6, blood pressure 166/93, pulse 68. GENERAL: He is in no acute distress. Alert and oriented x3. LUNGS: Clear to auscultation bilaterally. HEART: Regular rate and rhythm without murmur. ABDOMEN: Soft, nontender, nondistended. Bowel sounds are present. EXTREMITIES: No lower extremity edema. LABORATORY DATA: Bilirubin 1.1. Creatinine 0.81. Hemoglobin is 7.3, down from 9.6 yesterday. IMPRESSION: 1. Hematemesis. He does not appear to have had a significant large volume hematemesis. He did have some dark emesis that could have been related to gastritis, but no more significant bleeding to indicate a postsphincterotomy bleed. He has nonbloody-appearing return from his NG tube. He had light brown stool by rectal exam. 2. Anemia of acute blood loss. His hemoglobin did decrease from 9.6 to 7.3. This might more likely be related to his bleeding around the gallbladder fossa, status post open cholecystectomy. We can continue to monitor for overt GI bleeding. In the meantime, his symptoms have greatly improved and he is receiving a unit of blood today. If he does not respond appropriately with followup hemoglobin this afternoon, then we can lavage his stomach to verify no further evidence of GI bleeding and get Dr. Rossi to reevaluate as well. For now, he is very hemodynamically stable and appears much better today than he did yesterday. 3. Hypotensive episode yesterday after receiving hydralazine. He did have a change in his mental status with that, but his mental status is now back to baseline. RECOMMENDATIONS: 1. Recheck his hemoglobin this afternoon. 2. Continue to follow for signs of overt GI bleeding. 3. Proton-pump inhibitor. Job ID: [id number]
[2019-04-25] MEDS ORDERED: Dextrose 5% in Water 1,000 ML IV PRN (13:29)
[2019-04-25] MEDS ORDERED: Dextrose 50% Abboject 50 ML SYRINGE SLOW IVP PRN (13:29)
[2019-04-25] MEDS ORDERED: HumaLOG 300 UNITS/3 ML VIAL SC PRN ×2 (13:29)
[2019-04-25] MEDS: hydrALAZINE 20 MG/ML VIAL SLOW IVP PRN (14:44)
[2019-04-25] MEDS ORDERED: Sodium Chloride 0.9% (PF) 10 ML VIAL FS PRN (15:49)
[2019-04-25] MEDS: Promethazine HCl 25 MG/ML VIAL SLOW IVP PRN (17:30)
[2019-04-25 17:33] LABS: Hemoglobin 10.4 g/dL (14.0-18.0)
[2019-04-25] MEDS ORDERED: Prevnar 13-Val Conj/PF 0.5 ML SYRINGE IM ONE (18:00)
[2019-04-25] MEDS ORDERED: FLU VACC TS2019-20(65YR UP)/PF 180 MCG/0.5 ML SYRINGE IM ONE (18:00)
[2019-04-25] MEDS: NITROGLYCERIN PATCH REMOVAL FS SCH (20:05)
[2019-04-25] MEDS: Pantoprazole 40 MG VIAL IVP SCH (20:05)
[2019-04-25] MEDS ORDERED: Ibuprofen 600 MG TAB PO PRN (20:57)
[2019-04-25] MEDS: Aspirin 81 mg Enteric Coated Tablet PO SCH (21:20)
[2019-04-25] MEDS: Baclofen 10 MG TAB PO SCH (21:20)
[2019-04-25] MEDS: Atorvastatin Calcium 10 MG TAB PO SCH (21:21)
[2019-04-25] MEDS: Gabapentin 400 MG CAP PO SCH (21:21)
--- NOTE | 2019-04-25 21:21 | PRG ---
DATE OF SERVICE: 04/25/2019 SUBJECTIVE: Mr. Jones is doing better today. His NG tube output has been very little. He has passed some flatus. He is not having abdominal discomfort. White count this morning is 9, hemoglobin 7.3. He has been given blood. Sodium 143, potassium 3.3, chloride 109, BUN and creatinine of 10 and 0.85. NG tube output is nonbloody. Further discussion with the patient reveals that he has never noticed any blood in his emesis. I have witnessed him having emesis at the bedside. It was only old gastric contents. No evidence of bleeding. The patient has been hydrated. His hemoglobin is slightly diminished. I do not think he has any ongoing bleeding. I believe the perihepatic fluid seen is a consequence of regional operation. I agree with transfusion, however. The patient has had recent EKG demonstrating ischemia and even though he had a pre-cholecystectomy cardiac stress test that did not reveal any reversible ischemia, he did have an EKG this hospitalization demonstrating ischemia. Dr. Wong and Dr. Wyman will have to discuss whether the patient needs cardiac catheterization. OBJECTIVE: LUNGS: Clear to auscultation. CARDIAC: Regular rate and rhythm without murmur or gallop. ABDOMEN: Soft. Bowel sounds present. He does not seem to be significantly distended. His right subcostal wound is well healed. ASSESSMENT AND PLAN: Four days status post laparoscopic converted open cholecystectomy. We would remove his NG tube and advance to full liquids. We would resume his home medications. Repeat the CBC in the morning. Job ID: [id number]
[2019-04-26] MEDS: Meropenem 2 GM in Sodium Chloride 0.9% 100 ML IVPB SCH ×3 (04:29→21:01)
[2019-04-26] MEDS: Lactated Ringer's 1,000 ML IV SCH (04:29)
[2019-04-26 05:06] LABS: #Eosinphils 0.4 thou/uL (0.0-0.7); #Lymphocytes 1.8 thou/uL (1.20-3.40); #Monocytes 0.9 thou/uL (0.11-0.59); #Neutrophils 5.8 thou/uL (1.40-6.50); %Eosinophils 4.1 % (0.0-10.0); %Lymphocytes 20.7 % (21.0-51.0); %Monocytes 9.9 % (0.0-10.0); %Neutrophils 65.3 % (42.0-75.0); Hemoglobin 8.9 g/dL (14.0-18.0); Mean Corpuscular HGB CONC 32.7 g/dL (32.0-36.0); Mean Corpuscular Hemoglobin 27.7 pg (27.0-31.0); Mean Corpuscular Volume 84.9 fL (78.0-98.0); Mean Platelet Volume 6.8 fL (7.4-10.4); Platelet Count 222 thou/uL (130-400); White Blood Cell (WBC) Count 8.9 thou/uL (4.8-10.8)
[2019-04-26 05:19] LABS: Anion Gap 11 mmol/L (10-20); BUN (Urea Nitrogen) 8 mg/dL (8.4-25.7); Calc. Creatinine Clearance 109 mL/min (70-130); Calcium 7.7 mg/dL (7.8-10.44); Carbon Dioxide 26 mmol/L (23-31); Chloride 106 mmol/L (98-107); Estimated GFR-MDRD Greater than 90; Glucose 130 mg/dL (80-115); Sodium 140 mmol/L (136-145)
[2019-04-26 05:31] LABS: Potassium 2.9 mmol/L (3.5-5.1)
[2019-04-26] MEDS ORDERED: PHOS-NAK 1 PKT PACK PO PRN ×2 (05:56)
[2019-04-26] MEDS ORDERED: Magnesium 2 GM/50 ML 2 GM in Premix Bag 1 BAG IVPB PRN (05:56)
[2019-04-26] MEDS ORDERED: Potassium Chloride 40 MEQ in Sodium Chloride 0.9% 250 ML 250 ML IVPB PRN (05:56)
[2019-04-26] MEDS ORDERED: Potassium Phosphate 9 MMOL in Sodium Chloride 0.9% 100 ML IVPB PRN (05:56)
[2019-04-26] MEDS ORDERED: Potassium Chloride 20 MEQ TAB PO PRN (05:56)
[2019-04-26] MEDS ORDERED: CCU ELECTROLYTE REPLACEMENT PROTOCOL FS PRN (05:56)
[2019-04-26] MEDS ORDERED: Potassium Phosphate 12 MMOL in Sodium Chloride 0.9% 250 ML 250 ML IV PRN (05:56)
[2019-04-26] MEDS ORDERED: Potassium Phosphate 15 MMOL in Sodium Chloride 0.9% 250 ML 250 ML IV PRN (05:56)
[2019-04-26] MEDS ORDERED: Magnesium Oxide 400 MG TAB PO PRN ×2 (05:56)
[2019-04-26] MEDS: Potassium Chloride 40 MEQ in Premix Bag 1 BAG IVPB PRN (06:04)
[2019-04-26] MEDS ORDERED: Carvedilol 3.125 MG TAB PO SCH (08:00)
[2019-04-26] MEDS: Nitroglycerin 0.4mg/Hour PATCH TOP SCH (08:36)
[2019-04-26] MEDS: Gabapentin 400 MG CAP PO SCH ×2 (08:36→22:10)
[2019-04-26] MEDS: Losartan 25 MG TAB PO SCH (08:36)
[2019-04-26] MEDS: Baclofen 10 MG TAB PO SCH ×2 (08:36→22:11)
[2019-04-26] MEDS: metFORMIN 500 MG TAB PO SCH ×2 (08:37→17:38)
[2019-04-26] MEDS: Vancomycin HCl 1 GM in Premix Bag 1 BAG IVPB SCH ×2 (08:38→22:12)
[2019-04-26] MEDS: Furosemide 20 MG/2 ML VIAL SLOW IVP SCH (08:38)
[2019-04-26] MEDS: Pantoprazole 40 MG VIAL IVP SCH ×2 (08:38→22:11)
[2019-04-26] MEDS: Aspirin 81 mg Enteric Coated Tablet PO SCH ×2 (08:39→22:10)
[2019-04-26] MEDS: hydrALAZINE 20 MG/ML VIAL SLOW IVP PRN (08:43)
--- NOTE | 2019-04-26 08:47 | PDOC.HOSPP ---
- Subjective Encounter Date: 04/26/19 Encounter Time: 08:45 Subjective: Mr. Jones was seen today in follow-up of GI Bleed, and recent Cholecystectomy, and USA. He is doing better. He is very talkative this morning, and does not have any complaints. He denies any nausea or vomiting. - Objective Vital Signs & Weight: Vital Signs (12 hours) Temp Pulse BP 04/26/19 08:43 98 189/115 H 04/26/19 04:00 98.6 F 04/26/19 00:00 98.6 F Weight Admit Weight 175 lb 14.862 oz Weight 176 lb 2.389 oz Most Recent Monitor Data Heart Rate from ECG 70 NIBP 162/80 NIBP BP-Mean 107 Respiration from ECG 16 SpO2 96 I&O: 04/25/19 04/26/19 04/27/19 07:59 06:59 06:59 Intake Total Output Total Balance Result Diagrams: 04/26/19 04:35 04/26/19 04:35 Additional Labs: Accuchecks 04/25/19 04/25/19 04/25/19 23:41 17:24 12:17 POC Glucose 153 H 160 H 200 H 04/25/19 01:35 POC Glucose 223 H Hospitalist ROS - Medication Medications: Active Medications Generic Name Dose Route Start Last Admin Trade Name Freq PRN Reason Stop Dose Admin Aspirin 81 mg 04/25/19 21:00 04/26/19 08:39 Ecotrin PO 81 mg BID TIKA Administration Atorvastatin Calcium 10 mg 04/25/19 21:00 04/25/19 21:21 Lipitor PO 10 mg HS TIKA Administration Baclofen 5 mg 04/25/19 21:00 04/26/19 08:36 Lioresal PO 5 mg BID TIKA Administration Chlorpromazine HCl 25 mg 04/24/19 17:30 04/24/19 18:25 Thorazine IM 25 mg Q6H PRN Administration Hiccups Furosemide 20 mg 04/26/19 09:00 04/26/19 08:38 Lasix SLOW IVP 20 mg QAM TIKA Administration Gabapentin 400 mg 04/25/19 21:00 04/26/19 08:36 Neurontin PO 400 mg BID TIKA Administration Hydralazine HCl 10 mg 04/24/19 16:44 04/26/19 08:43 Apresoline SLOW IVP 10 mg Q4H PRN Administration Hypertension Meropenem 2 gm/ Sodium 100 mls @ 100 mls/hr 04/24/19 20:00 04/26/19 04:29 Chloride IVPB 100 mls 0400,1200,2000 TIKA Administration Vancomycin HCl 1 gm/ Device 200 mls @ 200 mls/hr 04/24/19 21:00 04/26/19 08: 38 IVPB 200 mls Q12HR TIKA Administration Lactated Ringer's 1,000 mls @ 60 mls/hr 04/25/19 11:41 04/26/19 04:29 Lactated Ringer's IV 1,000 mls .[id number] TIKA Administration Potassium Chloride 40 meq/ 100 mls @ 50 mls/hr 04/26/19 05:56 04/26/19 06:04 Device IVPB 100 mls ASDIR PRN Administration FOR SERUM K+ 2.5 - 3.5 Insulin Human Lispro 0 units 04/25/19 13:29 04/25/19 13:57 Humalog SC 2 unit .MILD SLIDING SCALE PRN Administration Mild Correctional Scale Losartan Potassium 100 mg 04/26/19 09:00 04/26/19 08:36 Cozaar PO 100 mg DAILY TIKA Administration Metformin HCl 500 mg 04/26/19 08:00 04/26/19 08:37 Glucophage PO 500 mg BID-WM TIKA Administration Metoprolol Tartrate 5 mg 04/24/19 20:41 04/25/19 02:01 Lopressor IVP 5 mg Q4H PRN Administration HR>100 Miscellaneous Information 1 each 04/25/19 21:00 04/25/19 20:05 Communication Order-Pharmacy FS Not Given HS TIKA Nitroglycerin 1 patch 04/26/19 09:00 04/26/19 08:36 Nitro-Dur 0.4mg/Hr Patch TOP 1 patch DAILY TIKA Administration Pantoprazole Sodium 40 mg 04/25/19 21:00 04/26/19 08:38 Protonix IVP 40 mg BID TIKA Administration Promethazine HCl 6.25 mg 04/24/19 17:19 04/25/19 17:30 Phenergan SLOW IVP 6.25 mg Q6H PRN Administration Nausea Sodium Chloride 10 ml 04/24/19 21:00 04/25/19 20:06 Flush - Normal Saline IVF 10 ml Q12HR TIKA Administration - Exam Eye: PERRL Heart: RRR, no murmur, no gallops, no rubs, normal peripheral pulses Respiratory: CTAB, no wheezes, no rales, no ronchi, normal chest expansion Gastrointestinal: soft, non-tender, non-distended, normal bowel sounds, no palpable masses, no hepatomegaly Extremities: no cyanosis, 1+ LE edema (trace pedal edema) Musculoskeletal: diffuse muscle atrophy (+ weakness in the right arm, and contracture on the left upper extremity) Hosp A/P (1) GI bleed Code(s): K92.2 - GASTROINTESTINAL HEMORRHAGE, UNSPECIFIED Status: Acute (2) Acute blood loss anemia Code(s): D62 - ACUTE POSTHEMORRHAGIC ANEMIA Status: Acute (3) Unstable angina Status: Acute (4) Hypertension Code(s): I10 - ESSENTIAL (PRIMARY) HYPERTENSION Status: Chronic (5) Diabetes mellitus type 2 in nonobese Code(s): E11.9 - TYPE 2 DIABETES MELLITUS WITHOUT COMPLICATIONS Status: Chronic (6) History of cholecystectomy Code(s): Z90.49 - ACQUIRED ABSENCE OF OTHER SPECIFIED PARTS OF DIGESTIVE TRACT Status: Chronic - Plan * GI- bleed- this is felt to be due to gastritis, H&H is stable- continue Protonix * Unstable Angina- treat medically- patient is being managed by Cardiology * HTN- blood pressure is elevated- Losartan was re-started, and will add a low dose Carvediolol * Recent Cholecystectomy, and sphincterotomy- stable * Nutrition- NG tube has bee removed, and his diet has been advanced to a solid diet * Will check a swallow study as a precaution * DM- once he is eating consistently, will consider re-starting Metformin
[2019-04-26] MEDS ORDERED: Nitroglycerin 0.4mg/Hour PATCH TOP SCH (09:00)
--- NOTE | 2019-04-26 09:15 | PRG ---
DATE OF SERVICE: 04/26/2019 SUBJECTIVE: He remains in the ICU. He is actually doing quite well except for elevated blood pressure. OBJECTIVE: VITAL SIGNS: His temperature is 98.6, pulse 70, blood pressure 160/80, and O2 saturation 96%. 24-hour intake 3180, output 1800. HEENT: Unremarkable. NECK: No adenopathy or JVD. CHEST: Clear to auscultation. CARDIAC: S1-S2 regular. ABDOMEN: Soft. EXTREMITIES: No edema. He has left-sided hemiparesis. ASSESSMENT: 1. Gastrointestinal bleeding-medically stable. 2. Hypertension. 3. Status post recent cholecystectomy. 4. Diabetes mellitus. PLAN: The patient is stable for transfer down to intermediate care unit. There is no indication for him to remain in ICU. His potassium will be replaced. Job ID: [id number]
[2019-04-26] MEDS ORDERED: Ondansetron ORAL SOLN. 4 MG/5 ML UDCUP PO PRN ×2 (09:57)
[2019-04-26] MEDS ORDERED: Ondansetron ODT 8 MG TAB PO PRN (09:57)
[2019-04-26] MEDS ORDERED: Ondansetron ODT 8 MG TAB SL PRN (09:57)
[2019-04-26] MEDS ORDERED: Ondansetron ODT 4 MG TAB PO PRN (09:57)
--- NOTE | 2019-04-26 10:36 | PRG ---
DATE OF SERVICE: 04/26/2019 SUBJECTIVE: Montez Jones is doing well today, although he has experienced recurrent nausea and vomiting. The patient states even before his cholecystectomies, he was having problems with nausea and vomiting. He was admitted with gastric distention, NG tube eventually placed, and he had 300 mL of gastric fluid out. The patient again did experience emesis this morning after eating about 1/4th of his regular meal and cannot eat anymore. He still has IV fluids running. OBJECTIVE: VITAL SIGNS: Blood pressure 165/105 and heart rate 113. Urine output 1800 mL. LUNGS: Clear to auscultation. CARDIAC: Regular rate and rhythm without murmur or gallop. ABDOMEN: Soft and nontender. Surgical wounds look good. Gastric, he did experience emesis. LABORATORY DATA: This morning; his sodium is 140, potassium 2.9, chloride 106, BUN 8, creatinine 0.71, and glucose 150. Hemoglobin 8.9 and white count 8.9. ASSESSMENT AND PLAN: 1. Nausea and vomiting. We will consult Gastroenterology, since this seems to be a chronic problem. He will benefit from an esophagogastroduodenoscopy. 2. Status post cholecystectomy. No apparent problems. He has perihepatic old blood, but is not actively bleeding. 3. Ischemia on recent EKG, workup per Cardiology, despite negative cardiac stress test pre-cholecystectomy. 4. Left hemiparesis. 5. 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 6. The patient gets up in a chair, spends most of his day in a wheelchair at home. He needs to be out of bed into a chair 2 to 3 times a day for long periods. Job ID: [id number]
[2019-04-26] MEDS: Metoprolol Tartrate 5 MG/5 ML VIAL IVP SCH ×2 (11:03→17:51)
[2019-04-26] MEDS: Metoclopramide 10 MG/10 ML UDCUP PO SCH ×3 (11:20→22:09)
[2019-04-26 11:29] LABS: Potassium 3.3 mmol/L (3.5-5.1)
[2019-04-26] MEDS: Enalaprilat Dihydrate 1.25 MG/ML VIAL SLOW IVP SCH ×2 (12:50→17:50)
--- NOTE | 2019-04-26 16:00 | PRG ---
DATE OF SERVICE: 04/26/2019 SUBJECTIVE: Mr. Jones has had vomiting yesterday. He states that he is keeping liquids down today. OBJECTIVE: VITAL SIGNS: Pulse 82, blood pressure 126/83, and temperature 99.7. GENERAL: He is in no acute distress. Alert and oriented x3. LUNGS: Clear to auscultation bilaterally. HEART: Regular rate and rhythm without murmur. ABDOMEN: Soft, nontender, and nondistended. Bowel sounds are present. EXTREMITIES: No lower extremity edema. LABORATORY DATA: White blood cell count 8.9, hemoglobin 8.9, and platelets 222. Creatinine 0.71. IMPRESSION: 1. Anemia of acute blood loss. His hemoglobin is stable at 8.9, status post 1 unit transfusion yesterday. 2. Cholecystitis and choledocholithiasis, status post cholecystectomy and endoscopic retrograde cholangiopancreatography with sphincterotomy. 3. Hypotensive episode two days ago with mental status change and ischemic changes on his electrocardiogram. RECOMMENDATIONS: In light of prior nausea and vomiting more persistently before his gallbladder surgery, we will check a Gastrografin upper GI series tomorrow. Job ID: [id number]
[2019-04-26 20:52] LABS: Vancomycin, Trough 14.1 ug/mL
[2019-04-26] MEDS: Atorvastatin Calcium 10 MG TAB PO SCH (22:11)
[2019-04-26] MEDS: NITROGLYCERIN PATCH REMOVAL FS SCH (22:30)
[2019-04-27] MEDS: Metoprolol Tartrate 5 MG/5 ML VIAL IVP SCH ×4 (01:28→17:07)
[2019-04-27] MEDS: Enalaprilat Dihydrate 1.25 MG/ML VIAL SLOW IVP SCH ×4 (01:29→19:04)
[2019-04-27] MEDS: Lactated Ringer's 1,000 ML IV SCH ×2 (01:29→15:28)
[2019-04-27] MEDS: Meropenem 2 GM in Sodium Chloride 0.9% 100 ML IVPB SCH ×3 (04:18→20:55)
[2019-04-27 04:55] LABS: #Eosinphils 0.3 thou/uL (0.0-0.7); #Lymphocytes 1.8 thou/uL (1.20-3.40); #Monocytes 0.8 thou/uL (0.11-0.59); #Neutrophils 6.5 thou/uL (1.40-6.50); %Basophils 0.1 % (0.0-1.0); %Eosinophils 3.4 % (0.0-10.0); %Lymphocytes 18.9 % (21.0-51.0); %Monocytes 8.7 % (0.0-10.0); Mean Corpuscular HGB CONC 31.9 g/dL (32.0-36.0); Mean Corpuscular Hemoglobin 26.7 pg (27.0-31.0); Mean Corpuscular Volume 83.8 fL (78.0-98.0); Mean Platelet Volume 6.6 fL (7.4-10.4); Platelet Count 256 thou/uL (130-400); RBC Distribution Width 14.4 % (11.5-14.5); Red Blood Cell (RBC) Count 3.37 mill/uL (4.70-6.10); White Blood Cell (WBC) Count 9.4 thou/uL (4.8-10.8)
[2019-04-27 05:18] LABS: Anion Gap 10 mmol/L (10-20); BUN (Urea Nitrogen) 9 mg/dL (8.4-25.7); Calc. Creatinine Clearance 112 mL/min (70-130); Calcium 7.8 mg/dL (7.8-10.44); Carbon Dioxide 27 mmol/L (23-31); Chloride 104 mmol/L (98-107); Estimated GFR-MDRD Greater than 90; Glucose 119 mg/dL (80-115); Sodium 138 mmol/L (136-145)
[2019-04-27] MEDS: Acetaminophen 500 MG TAB PO PRN ×3 (05:44→22:04)
[2019-04-27] MEDS: Metoclopramide 10 MG/10 ML UDCUP PO SCH ×2 (06:41→12:14)
[2019-04-27] MEDS: hydrALAZINE 20 MG/ML VIAL SLOW IVP PRN (07:19)
[2019-04-27] MEDS: Potassium Chloride 40 MEQ in Premix Bag 1 BAG IVPB PRN (07:22)
[2019-04-27] MEDS ORDERED: Potassium Chloride 20 MEQ in Premix Bag 1 BAG IVPB SCH (08:30)
--- NOTE | 2019-04-27 08:54 | PRG ---
DATE OF SERVICE: 04/26/2019 ADDENDUM: Mr. Jones has recalled, on 04/21/2019, he had an ERCP, Dr. Michelle performed this. We will ask Dr. Torres to see the patient regarding any input the patient may be have from gastric emptying chronically. Job ID: [id number]
--- NOTE | 2019-04-27 09:17 | PRG ---
DATE OF SERVICE: 04/27/2019 HISTORY OF PRESENT ILLNESS: Mr. Jones currently is stable. No current complaints. No chest pain or pressure noted. He was readmitted for abdominal discomfort, nausea, and vomiting. He did have an episode of chest pain. CKs and troponins were not felt to be markedly elevated. He did have a recent stress study that was negative for ischemia with a normal LVEF. OBJECTIVE: GENERAL: Patient is a pleasant male, who is in no acute distress. The patient appears their stated age. VITAL SIGNS: Blood pressure 149/77, pulse 72, and respirations 20. NEUROLOGIC: The patient is alert and oriented x3 with no focal neurologic deficits. HEENT: Sclerae without icterus. Mouth has moist mucous membranes with normal pallor. NECK: No JVD. Carotid upstroke brisk. No bruits bilaterally. LUNGS: Clear to auscultation with unlabored respirations. BACK: No scoliosis or kyphosis. CARDIAC: Regular rate and rhythm with normal S1 and S2. No S3 or S4 noted. No significant rubs, murmurs, thrills, or gallops noted throughout the precordium. PMI is not displaced. There is no parasternal heave. ABDOMEN: Soft, nontender, nondistended. No peritoneal signs present. No hepatosplenomegaly. No abnormal striae. EXTREMITIES: 2+ femoral and 2+ dorsalis pedis pulses. No cyanosis, clubbing, or edema. SKIN: No gross abnormalities. PERTINENT LABORATORY DATA: Hemoglobin 7.3, on admission, down from 9.6. IMPRESSION: 1. Chest pressure. 2. Nausea and vomiting. 3. Recent cholecystectomy. RECOMMENDATIONS: At this point, Mr. Jones appears stable. We will continue current course. There was concern for GI bleed. He is currently having an x-ray for upper GI ordered. We will continue current medical course. The patient does have multiple comorbidities. Nitroglycerin patch has been placed. We will also add a beta-arcenio therapy. Job ID: [id number]
[2019-04-27] MEDS: Losartan 25 MG TAB PO SCH (09:27)
[2019-04-27] MEDS: Vancomycin HCl 1 GM in Premix Bag 1 BAG IVPB SCH ×2 (09:27→21:16)
[2019-04-27] MEDS: Pantoprazole 40 MG VIAL IVP SCH ×2 (09:27→20:55)
[2019-04-27] MEDS: metFORMIN 500 MG TAB PO SCH ×2 (09:27→17:07)
[2019-04-27] MEDS: Nitroglycerin 0.4mg/Hour PATCH TOP SCH (09:27)
[2019-04-27] MEDS: Furosemide 20 MG/2 ML VIAL SLOW IVP SCH (09:27)
[2019-04-27] MEDS: Gabapentin 400 MG CAP PO SCH ×2 (09:27→21:09)
[2019-04-27] MEDS: Baclofen 10 MG TAB PO SCH ×2 (09:28→21:10)
--- NOTE | 2019-04-27 09:41 | HP ---
HISTORY OF PRESENT ILLNESS: Montez Jones is status post open cholecystectomy, this morning, he is complaining of left-sided chest pain. He is unable to put a finger because he is essentially quadriplegic; previous cerebrovascular accident; previous multiple surgeries. OBJECTIVE: VITAL SIGNS: His saturations are 96% on room air, blood pressure 149/77, pulse rate 18. CHEST: No wheezing or crackles. CARDIAC: Normal S1 and S2. No gallops. ABDOMEN: Soft. NEUROLOGIC: He is awake. EXTREMITIES: contracted. LABORATORY DATA: His lytes are normal. White count 9000. Last chest x-ray showed questionable left sidedeffusion. He is on broad-spectrum antibiotics, meropenem and vancomycin, though clearly all his cultures are negative except from his previous showing enterobacter sensitive to the antibiotic. IMPRESSION: Chest pain, etiology unclear. EKG was ordered. recent gallbladder surgery. cerebrovascular accident. PLAN: Unclear for his chest pain, though his vital signs relatively stable. I may consider putting him on DVT prophylaxis. We will follow. Job ID: [id number]
--- NOTE | 2019-04-27 09:42 | PDOC.HOSPP ---
- Subjective Encounter Date: 04/27/19 Encounter Time: 09:40 Subjective: Mr. Jones was seen today in follow-up of GI Bleed and USA. He had an episode of chest pain when he woke up this morning. He denies any dyspnea, and denies abdominal pain. - Objective Vital Signs & Weight: Vital Signs (12 hours) Temp Pulse BP Pulse Ox 04/27/19 07:57 96 04/27/19 07:19 79 189/83 H 04/27/19 07:15 98.4 F 04/27/19 05:45 171/85 H 04/27/19 01:29 159/60 H 04/26/19 21:47 99.6 F Weight Admit Weight 175 lb 14.862 oz Weight 178 lb 9.008 oz Most Recent Monitor Data Heart Rate from ECG 72 NIBP 149/77 NIBP BP-Mean 101 Respiration from ECG 13 SpO2 100 I&O: 04/26/19 04/27/19 04/28/19 06:59 06:59 06:59 Intake Total 2873 Output Total 1750 Balance 1123 Result Diagrams: 04/27/19 04:25 04/27/19 04:25 Additional Labs: Accuchecks 04/27/19 04/27/19 04/26/19 06:15 01:44 21:02 POC Glucose 119 H 135 H 141 H 04/26/19 04/26/19 16:01 10:59 POC Glucose 122 H 170 H Hospitalist ROS - Medication Medications: Active Medications Generic Name Dose Route Start Last Admin Trade Name Freq PRN Reason Stop Dose Admin Acetaminophen 1,000 mg 04/25/19 20:57 04/27/19 05:44 Tylenol PO 1,000 mg Q6H PRN Administration Moderate to Severe Pain (6-10) Atorvastatin Calcium 10 mg 04/25/19 21:00 04/26/19 22:11 Lipitor PO 10 mg HS TIKA Administration Baclofen 5 mg 04/25/19 21:00 04/27/19 09:28 Lioresal PO 5 mg BID TIKA Administration Chlorpromazine HCl 25 mg 04/24/19 17:30 04/24/19 18:25 Thorazine IM 25 mg Q6H PRN Administration Hiccups Enalaprilat 1.25 mg 04/26/19 12:00 04/27/19 05:45 Vasotec SLOW IVP 1.25 mg Q6HR TIKA Administration Furosemide 20 mg 04/26/19 09:00 04/27/19 09:27 Lasix SLOW IVP 20 mg QAM TIKA Administration Gabapentin 400 mg 04/25/19 21:00 04/27/19 09:27 Neurontin PO 400 mg BID TIKA Administration Hydralazine HCl 10 mg 04/24/19 16:44 04/27/19 07:19 Apresoline SLOW IVP 10 mg Q4H PRN Administration Hypertension Meropenem 2 gm/ Sodium 100 mls @ 100 mls/hr 04/24/19 20:00 04/27/19 04:18 Chloride IVPB 100 mls 0400,1200,2000 TIKA Administration Vancomycin HCl 1 gm/ Device 200 mls @ 200 mls/hr 04/24/19 21:00 04/27/19 09: 27 IVPB 200 mls Q12HR TIKA Administration Lactated Ringer's 1,000 mls @ 60 mls/hr 04/25/19 11:41 04/27/19 01:29 Lactated Ringer's IV 1,000 mls .[id number] TIKA Administration Potassium Chloride 40 meq/ 100 mls @ 50 mls/hr 04/26/19 05:56 04/27/19 07:22 Device IVPB 100 mls ASDIR PRN Administration FOR SERUM K+ 2.5 - 3.5 Potassium Chloride 20 meq/ 100 mls @ 50 mls/hr 04/27/19 08:30 04/27/19 09:22 Device IVPB 04/27/19 10:29 Not Given NOW [facility] Insulin Human Lispro 0 units 04/25/19 13:29 04/25/19 13:57 Humalog SC 2 unit .MILD SLIDING SCALE PRN Administration Mild Correctional Scale Losartan Potassium 100 mg 04/26/19 09:00 04/27/19 09:27 Cozaar PO 100 mg DAILY TIKA Administration Metformin HCl 500 mg 04/26/19 08:00 04/27/19 09:27 Glucophage PO 500 mg BID-WM TIKA Administration Metoclopramide HCl 10 mg 04/26/19 11:30 04/27/19 06:41 Reglan PO 10 mg ACHS TIKA Administration Metoprolol Tartrate 5 mg 04/24/19 20:41 04/25/19 02:01 Lopressor IVP 5 mg Q4H PRN Administration HR>100 Metoprolol Tartrate 5 mg 04/26/19 12:00 04/27/19 05:46 Lopressor IVP Not Given Q6HR [facility] Miscellaneous Information 1 each 04/25/19 21:00 04/26/19 22:30 Communication Order-Pharmacy FS Not Given HS TIKA Nitroglycerin 1 patch 04/26/19 09:00 04/27/19 09:27 Nitro-Dur 0.4mg/Hr Patch TOP 1 patch DAILY TIKA Administration Pantoprazole Sodium 40 mg 04/25/19 21:00 04/27/19 09:27 Protonix IVP 40 mg BID TIKA Administration Promethazine HCl 6.25 mg 04/24/19 17:19 04/25/19 17:30 Phenergan SLOW IVP 6.25 mg Q6H PRN Administration Nausea Sodium Chloride 10 ml 04/24/19 21:00 04/27/19 09:27 Flush - Normal Saline IVF 10 ml Q12HR TIKA Administration - Exam Eye: PERRL Heart: RRR, no murmur, no gallops, no rubs, normal peripheral pulses Respiratory: CTAB, no wheezes, no rales, no ronchi, normal chest expansion Gastrointestinal: soft, non-tender, non-distended, normal bowel sounds, no palpable masses Extremities: no cyanosis, no clubbing, no edema Hosp A/P (1) GI bleed Code(s): K92.2 - GASTROINTESTINAL HEMORRHAGE, UNSPECIFIED Status: Acute (2) Acute blood loss anemia Code(s): D62 - ACUTE POSTHEMORRHAGIC ANEMIA Status: Acute (3) Unstable angina Status: Acute (4) Hypertension Code(s): I10 - ESSENTIAL (PRIMARY) HYPERTENSION Status: Chronic (5) Diabetes mellitus type 2 in nonobese Code(s): E11.9 - TYPE 2 DIABETES MELLITUS WITHOUT COMPLICATIONS Status: Chronic (6) History of cholecystectomy Code(s): Z90.49 - ACQUIRED ABSENCE OF OTHER SPECIFIED PARTS OF DIGESTIVE TRACT Status: Chronic - Plan * GI- bleed- ? etiology- plan is for UGI with SBFT * Unstable Angina- with episode of Chest pain today- ? etiology- CXR and EKG ordered * HTN- blood pressure is elevated- the dose of Carvediolol has been increased- his blood pressure is beginning to trend down * Recent Cholecystectomy, and sphincterotomy- stable * Nutrition- NG tube has bee removed, and his diet has been advanced to a solid diet * DM- blood glucose is stable
[2019-04-27] MEDS: Aspirin 81 mg Enteric Coated Tablet PO SCH (10:49)
--- NOTE | 2019-04-27 11:01 | RAD ---
CHEST 1 VIEW: Date: 04/27/19 HISTORY: Chest pain. COMPARISON: Radiograph 2 days prior. FINDINGS: Exam is severely limited due to rightward patient rotation. Central venous catheter tip projects over the right atrium. Layering right effusion. Left lung relatively clear. Left costophrenic sulcus is l imited as the left hand is projecting over it. There are skin stephania projecting over the right upper quadrant of the abdomen. IMPRESSION: 1. Limited examination due to marked rightward rotation. Similar right layering pleural effusion and possibly a trace left effusion. 2. Possible free intraperitoneal gas, not unexpected given recent surgery. POS: [facility]
--- NOTE | 2019-04-27 13:26 | PRG ---
DATE OF SERVICE: 04/27/2019 SUBJECTIVE: Mr. Jones had some chest pain this morning. This has resolved. He was evaluated by Cardiology and is being treated with aspirin, beta blockers, and nitroglycerin. He started having diarrhea with five liquidy stools through the course of the morning. He is having no further abdominal pain or nausea, however. OBJECTIVE: VITAL SIGNS: Temperature 97.8, pulse 72, and blood pressure 145/82. GENERAL: He is in no acute distress. Alert and oriented x3. LUNGS: Clear to auscultation Bilaterally. HEART: Regular rate and rhythm without murmur. ABDOMEN: Soft, nontender, nondistended. Bowel sounds are present. EXTREMITIES: Trace lower extremity edema. LABORATORY DATA: Creatinine 0.7. Hemoglobin is 9.0. IMPRESSION: 1. Chronic nausea and vomiting. He presented with acute cholecystitis and choledocholithiasis and underwent cholecystectomy and endoscopic retrograde cholangiopancreatography with sphincterotomy and balloon stone extraction. He still has some persistent nausea since surgery, and plan is to follow through with the upper GI and small-bowel follow-through Gastrografin study today to rule out any obvious significant mucosal lesion. 2. Acute diarrhea, started today with multiple liquidy stools. We will check a stool for Clostridium difficile. 3. Anemia. His hemoglobin has been stable. There have been no significant signs of overt gastrointestinal bleeding otherwise. 4. Recent hypotensive episode with mental status change and ischemic changes on ECG. He is being followed by Cardiology and treated medically. RECOMMENDATIONS: 1. We will follow the results of the small-bowel follow-through and upper GI today. 2. After that, he should be able to start back on a regular heart-healthy diet. 3. Continue proton pump inhibitor. Job ID: [id number]
--- NOTE | 2019-04-27 13:30 | PRG ---
DATE OF SERVICE: 04/27/2019 SUBJECTIVE: Montez Jones is doing well today. He is scheduled for an upper GI today. OBJECTIVE: VITAL SIGNS: Temperature 97.8 degrees, blood pressure 171/85. White count 9 and hemoglobin 9. Sodium 138, potassium 3.0, BUN and creatinine are normal. Upper GI pending. LUNGS: Clear to auscultation. CARDIAC: Regular rate and rhythm. No murmur or gallop. ABDOMEN: Soft. Bowel sounds present. The patient had a bowel movement. Surgical wound in right upper quadrant, stephania intact. ASSESSMENT AND PLAN: 1. Status post on 04/19/2019 laparoscopic cholecystectomy. There are no signs of bleeding. HIDA scan negative for a bowel leak. Perihepatic old hematoma is stable in postoperative and it is of no concern. No intervention needed. 2. Ischemia on EKG. Negative cardiac stress test prior to cholecystectomy, evaluation and treatment per Dr. Wyman. 3. Swallowing difficulty. This is intermittent. Upper GI ordered and pending, being followed by GI. At this point, I will see him as needed. Enola can be removed tomorrow. Mastisol and Steri-Strips applied. Dr. Johnson and Dr. Hernandez are covering for me if needed. Please call them if necessary. I will see him p.r.n. Job ID: [id number]
--- NOTE | 2019-04-27 16:00 | RAD ---
EXAM: XR UGI Single Contrast No Air PROVIDED CLINICAL HISTORY: Chronic nausea and vomiting. History of abdominal surgery. COMPARISON: None FINDINGS: Service Secretary view the abdomen demonstrates surgical clips overlying the right upper quadrant with skin clips overlying the upper abdomen bilaterally. Radiopaque suture material is seen overlying the right abdomen. Bowel gas pattern is overall nonspecific. Gastrografin upper GI was performed as requested. Approximately 90 mL of dilute Gastrografin was admi nistered during the exam. There is narrowing of the most distal esophagus. Gastroesophageal reflux was noted during the exam. Small sliding-type hiatal hernia is present. There is no significant peris talsis visualized involving the stomach with to and fro motion of contrast within the stomach. Contrast does extend into normal caliber proximal small bowel loops. Due to patient's gastroesophagea l reflux and inability to be placed in upright position due to clinical condition, no additional contrast was administered. IMPRESSION: 1. Prominent gastroesophageal reflux to the level of the upper esophagus. 2. Decreased peristalsis of the stomach which could be related to an element of gastroparesis. Contra st does extend into normal caliber loops of proximal small bowel. However, contrast persists within the stomach throughout the exam.
--- NOTE | 2019-04-27 16:28 | EKG ---
Test Reason : C/O CHEST PAIN Blood Pressure : / mmHG Vent. Rate : 100 BPM Atrial Rate : 100 BPM P-R Int : 130 ms QRS Dur : 092 ms QT Int : 386 ms P-R-T Axes : 069 -08 -44 degrees QTc Int : 497 ms Sinus rhythm with frequent Premature ventricular complexes Nonspecific ST and T wave abnormality Prolonged QT Abnormal ECG When compared with ECG of 24-APR-2019 20:16, (Unconfirmed) Premature ventricular complexes are now Present ST less depressed in Anterior leads Confirmed by DR. Juan MUNSON ([id number]) on 04/27/2019 4:27:40 PM Referred By: VALENTE Confirmed By:DR. Juan MUNSON
[2019-04-27] MEDS: Atorvastatin Calcium 10 MG TAB PO SCH (20:56)
[2019-04-27] MEDS: Metoprolol Tartrate 25 MG TAB PO SCH (20:56)
[2019-04-27] MEDS: NITROGLYCERIN PATCH REMOVAL FS SCH (21:10)
[2019-04-28] MEDS: Enalaprilat Dihydrate 1.25 MG/ML VIAL SLOW IVP SCH ×4 (00:34→18:17)
[2019-04-28] MEDS: Metoprolol Tartrate 5 MG/5 ML VIAL IVP SCH ×2 (00:34→06:19)
[2019-04-28] MEDS: Meropenem 2 GM in Sodium Chloride 0.9% 100 ML IVPB SCH (04:16)
[2019-04-28] MEDS: Lactated Ringer's 1,000 ML IV SCH (06:19)
[2019-04-28] MEDS: Enoxaparin Sodium 40 MG/0.4 ML SYRINGE SC SCH (08:15)
[2019-04-28] MEDS: Nitroglycerin 0.4mg/Hour PATCH TOP SCH (08:15)
[2019-04-28] MEDS: Baclofen 10 MG TAB PO SCH ×2 (08:16→20:29)
[2019-04-28] MEDS: Metoprolol Tartrate 25 MG TAB PO SCH ×2 (08:17→20:29)
[2019-04-28] MEDS: Aspirin 81 mg Enteric Coated Tablet PO SCH (08:17)
[2019-04-28] MEDS: Gabapentin 400 MG CAP PO SCH ×2 (08:17→20:29)
[2019-04-28] MEDS: Furosemide 20 MG/2 ML VIAL SLOW IVP SCH (08:17)
[2019-04-28] MEDS: metFORMIN 500 MG TAB PO SCH ×3 (08:17→18:16)
[2019-04-28] MEDS: Pantoprazole 40 MG VIAL IVP SCH ×2 (08:17→20:30)
[2019-04-28] MEDS: Vancomycin HCl 1 GM in Premix Bag 1 BAG IVPB SCH (08:18)
[2019-04-28] MEDS: Losartan 25 MG TAB PO SCH (09:11)
--- NOTE | 2019-04-28 10:25 | PRG ---
DATE OF SERVICE: 04/28/2019 SUBJECTIVE: This morning, he is better, less pain, less shortness of breath. OBJECTIVE: VITAL SIGNS: Stable. Blood pressure 137/79, pulse , and sats 97%. CHEST: No wheezing or crackles. CARDIAC: Normal S1 and S2. No gallops. ABDOMEN: No mass. ASSESSMENT: Status post lap; chest pain, resolved. PLAN: Pulmonary bradley, nothing additional to offer. Await input from GI. We will follow. Job ID: [id number]
--- NOTE | 2019-04-28 11:16 | PDOC.HOSPP ---
- Subjective Encounter Date: 04/28/19 Encounter Time: 11:15 Subjective: Mr. Jones was seen today in follow-up of GI bleed and USA. He says he feels fine today. He ate a large solid meal last night. - Objective Vital Signs & Weight: Vital Signs (12 hours) Temp 04/28/19 07:44 97.4 F L 04/28/19 03:19 97.2 F L 04/27/19 23:25 98.3 F Weight Admit Weight 175 lb 14.862 oz Weight 177 lb 3.2 oz Most Recent Monitor Data Heart Rate from ECG 83 NIBP 137/79 NIBP BP-Mean 98 Respiration from ECG 15 SpO2 97 I&O: 04/27/19 04/28/19 04/29/19 06:59 06:59 06:59 Intake Total 2873 2501.5 Output Total 1750 1600 Balance 1123 901.5 Result Diagrams: 04/27/19 04:25 04/27/19 04:25 Additional Labs: Accuchecks 04/28/19 04/27/19 04/27/19 06:25 20:22 16:35 POC Glucose 112 H 139 H 123 H 04/27/19 10:55 POC Glucose 173 H Hospitalist ROS - Medication Medications: Active Medications Generic Name Dose Route Start Last Admin Trade Name Freq PRN Reason Stop Dose Admin Acetaminophen 1,000 mg 04/25/19 20:57 04/27/19 22:04 Tylenol PO 1,000 mg Q6H PRN Administration Moderate to Severe Pain (6-10) Aspirin 81 mg 04/28/19 09:00 04/28/19 08:17 Ecotrin PO 81 mg QAM TIKA Administration Atorvastatin Calcium 10 mg 04/25/19 21:00 04/27/19 20:56 Lipitor PO 10 mg HS TIKA Administration Baclofen 5 mg 04/25/19 21:00 04/28/19 08:16 Lioresal PO 5 mg BID TIKA Administration Chlorpromazine HCl 25 mg 04/24/19 17:30 04/24/19 18:25 Thorazine IM 25 mg Q6H PRN Administration Hiccups Enalaprilat 1.25 mg 04/26/19 12:00 04/28/19 06:19 Vasotec SLOW IVP 1.25 mg Q6HR TIKA Administration Enoxaparin Sodium 40 mg 04/28/19 09:00 04/28/19 08:15 Lovenox SC 40 mg 0900 TIKA Administration Furosemide 20 mg 04/26/19 09:00 04/28/19 08:17 Lasix SLOW IVP 20 mg QAM TIKA Administration Gabapentin 400 mg 04/25/19 21:00 04/28/19 08:17 Neurontin PO 400 mg BID TIKA Administration Hydralazine HCl 10 mg 04/24/19 16:44 04/27/19 07:19 Apresoline SLOW IVP 10 mg Q4H PRN Administration Hypertension Lactated Ringer's 1,000 mls @ 60 mls/hr 04/25/19 11:41 04/28/19 06:19 Lactated Ringer's IV Not Given .[id number] TIKA Potassium Chloride 40 meq/ 100 mls @ 50 mls/hr 04/26/19 05:56 04/27/19 07:22 Device IVPB 100 mls ASDIR PRN Administration FOR SERUM K+ 2.5 - 3.5 Insulin Human Lispro 0 units 04/25/19 13:29 04/25/19 13:57 Humalog SC 2 unit .MILD SLIDING SCALE PRN Administration Mild Correctional Scale Losartan Potassium 100 mg 04/26/19 09:00 04/28/19 09:11 Cozaar PO 100 mg DAILY TIKA Administration Metformin HCl 500 mg 04/26/19 08:00 04/28/19 08:24 Glucophage PO Not Given BID-WM TIKA Metoprolol Tartrate 5 mg 04/24/19 20:41 04/25/19 02:01 Lopressor IVP 5 mg Q4H PRN Administration HR>100 Metoprolol Tartrate 12.5 mg 04/27/19 21:00 04/28/19 08:17 Lopressor PO 12.5 mg BID TKIA Administration Miscellaneous Information 1 each 04/25/19 21:00 04/27/19 21:10 Communication Order-Pharmacy FS 1 each HS TIKA Administration Nitroglycerin 1 patch 04/26/19 09:00 04/28/19 08:15 Nitro-Dur 0.4mg/Hr Patch TOP 1 patch DAILY TIKA Administration Pantoprazole Sodium 40 mg 04/25/19 21:00 04/28/19 08:17 Protonix IVP 40 mg BID TIKA Administration Promethazine HCl 6.25 mg 04/24/19 17:19 04/25/19 17:30 Phenergan SLOW IVP 6.25 mg Q6H PRN Administration Nausea Sodium Chloride 10 ml 04/24/19 21:00 04/28/19 08:18 Flush - Normal Saline IVF 10 ml Q12HR TIKA Administration - Exam Eye: PERRL, anicteric sclera Heart: RRR, no murmur, no gallops, no rubs, normal peripheral pulses Respiratory: CTAB, no wheezes, no rales, no ronchi, normal chest expansion, no tachypnea, normal percussion Gastrointestinal: soft, non-tender, non-distended, normal bowel sounds, no palpable masses, no hepatomegaly, no splenomegaly Extremities: no edema Hosp A/P (1) GI bleed Code(s): K92.2 - GASTROINTESTINAL HEMORRHAGE, UNSPECIFIED Status: Acute (2) Acute blood loss anemia Code(s): D62 - ACUTE POSTHEMORRHAGIC ANEMIA Status: Acute (3) Unstable angina Status: Acute (4) Hypertension Code(s): I10 - ESSENTIAL (PRIMARY) HYPERTENSION Status: Chronic (5) Diabetes mellitus type 2 in nonobese Code(s): E11.9 - TYPE 2 DIABETES MELLITUS WITHOUT COMPLICATIONS Status: Chronic (6) History of cholecystectomy Code(s): Z90.49 - ACQUIRED ABSENCE OF OTHER SPECIFIED PARTS OF DIGESTIVE TRACT Status: Chronic - Plan * GI- bleed- stable- no further drop in H&H * Continue Protonix * Unstable Angina- stable * HTN- blood pressure is elevated- blood pressure is a bit labile, but overall stable * Recent Cholecystectomy, and sphincterotomy- stable * Nutrition- he is tolerating a solid diet * DM- blood glucose is stable * He is likely ready for discharge soon
[2019-04-28 13:30] VITALS: BMI 26.2
[2019-04-28] MEDS: Vancomycin HCl 25 MG/ML Oral PO SCH ×2 (14:42→18:17)
[2019-04-28] MEDS ORDERED: Amlodipine 5 MG TAB PO SCH (15:30)
--- NOTE | 2019-04-28 15:45 | PRG ---
DATE OF SERVICE: 04/28/2019 SUBJECTIVE: Mr. Jones is doing well. No current complaints. He did test positive for C difficile. No current chest pain, pressure, or shortness of breath. OBJECTIVE: VITAL SIGNS: Blood pressure 149/83, pulse 102, respirations 20. LUNGS: Clear to auscultation. HEART: Regular rate and rhythm. ABDOMEN: Soft, nontender, nondistended. EXTREMITIES: No edema. LABORATORY DATA: Pertinent labs; hemoglobin not done today. IMPRESSION: 1. Chest pain. 2. Clostridium difficile infection. 3. Previous cerebrovascular accident. RECOMMENDATIONS: At this point, Mr. Jones appears cardiovascularly stable. We will make changes in the blood pressure regimen. Blood pressure remains elevated. He is currently on losartan 100 mg one daily. We will add Norvasc. He is also on nitroglycerin patch. Continue aspirin and atorvastatin. Job ID: [id number]
[2019-04-28] MEDS: Acetaminophen 500 MG TAB PO PRN (20:29)
[2019-04-28] MEDS: Promethazine HCl 25 MG/ML VIAL SLOW IVP PRN (20:29)
[2019-04-28] MEDS: Atorvastatin Calcium 10 MG TAB PO SCH (20:29)
[2019-04-28] MEDS: NITROGLYCERIN PATCH REMOVAL FS SCH (20:36)
--- NOTE | 2019-04-28 22:43 | PRG ---
DATE OF SERVICE: SUBJECTIVE: Mr. Jones feels better today. He states that he has been tolerating his meals better. However, nursing does report that he still complains of nausea after eating. He has had liquidy diarrhea and required placement of a rectal tube and has liquidy stool in the rectal tube drainage. He has had no vomiting. PHYSICAL EXAMINATION: VITAL SIGNS: Temperature is 98.7, blood pressure 172/102, and pulse 85. GENERAL: He is in no acute distress. Alert and oriented x3. LUNGS: Clear to auscultation bilaterally. HEART: Regular rate and rhythm without murmur. ABDOMEN: Soft, nontender, and nondistended. Bowel sounds are present. EXTREMITIES: Trace lower extremity edema. LABORATORY DATA: Clostridium difficile stool PCR for toxigenic Clostridium difficile was positive. IMPRESSION: 1. Chronic nausea and vomiting. He presented with acute cholecystitis and choledocholithiasis and underwent cholecystectomy and ERCP with sphincterotomy and balloon stone extraction. He has had persistent nausea chronically after eating. This may be secondary to gastroparesis. The gastric emptying scan showed slow emptying from the stomach. Reglan is held in light of the acute diarrhea. Primary treatment at this point will be small frequent meals, low fiber. 2. Clostridium difficile colitis. His stool came back positive for Clostridium difficile colitis. He started with large volume liquidy diarrhea yesterday. 3. Anemia has been stable. RECOMMENDATIONS: 1. Vancomycin 125 mg 4 times daily for 14 days. 2. Transition to oral proton pump inhibitor once daily. 3. Low-fiber diet. 4. He should be ready for discharge soon once his diarrhea is adequately controlled. Job ID: [id number]
[2019-04-29] MEDS: Vancomycin HCl 25 MG/ML Oral PO SCH ×5 (00:23→23:52)
[2019-04-29] MEDS: Enalaprilat Dihydrate 1.25 MG/ML VIAL SLOW IVP SCH ×5 (00:23→23:52)
[2019-04-29] MEDS: Lactated Ringer's 1,000 ML IV SCH ×2 (00:24→14:37)
[2019-04-29] MEDS ORDERED: Amlodipine 5 MG TAB PO SCH ×2 (09:00)
--- NOTE | 2019-04-29 09:04 | PRG ---
DATE OF SERVICE: 04/29/2019 SUBJECTIVE: Mr. Jones is doing well. No current complaints. No chest pain or pressure. He states he is eating well with no problems or issues. OBJECTIVE: VITAL SIGNS: Blood pressure 176/90, pulse 69. VITAL SIGNS: Temperature afebrile. LUNGS: Clear to auscultation. HEART: Regular rate and rhythm. ABDOMEN: Soft, nontender, nondistended. EXTREMITIES: No edema. IMPRESSION: 1. Chest pain. 2. Malignant hypertension. 3. C difficile. 4. Recent cholecystectomy. 5. Previous history of stroke. RECOMMENDATIONS: 1. Increase amlodipine to 10 mg q.a.m. 2. Continue losartan 100 mg daily. 3. Consider adding low-dose hydrochlorothiazide 12.5 mg one p.o. q.a.m. if blood pressure remains elevated. 4. The patient with recent chest pain, although recent normal stress test and normal LVEF. Continue medical therapy. Job ID: [id number]
[2019-04-29 09:08] LABS: Anion Gap 13 mmol/L (10-20); BUN (Urea Nitrogen) 7 mg/dL (8.4-25.7); Calc. Creatinine Clearance 112 mL/min (70-130); Calcium 8.3 mg/dL (7.8-10.44); Carbon Dioxide 24 mmol/L (23-31); Chloride 102 mmol/L (98-107); Estimated GFR-MDRD Greater than 90; Glucose 159 mg/dL (80-115); Magnesium 1.8 mg/dL (1.6-2.6); Potassium 3.4 mmol/L (3.5-5.1); Sodium 136 mmol/L (136-145)
[2019-04-29] MEDS: Aspirin 81 mg Enteric Coated Tablet PO SCH (09:21)
[2019-04-29] MEDS: metFORMIN 500 MG TAB PO SCH ×2 (09:21→19:19)
[2019-04-29] MEDS: Enoxaparin Sodium 40 MG/0.4 ML SYRINGE SC SCH (09:21)
[2019-04-29] MEDS: Losartan 25 MG TAB PO SCH (09:22)
[2019-04-29] MEDS: Gabapentin 400 MG CAP PO SCH ×2 (09:22→20:53)
[2019-04-29] MEDS: Metoprolol Tartrate 25 MG TAB PO SCH ×2 (09:22→20:54)
[2019-04-29] MEDS: Nitroglycerin 0.4mg/Hour PATCH TOP SCH (09:22)
[2019-04-29] MEDS: Amlodipine 10 MG TAB PO SCH (09:23)
[2019-04-29] MEDS: Baclofen 10 MG TAB PO SCH ×2 (09:23→20:53)
[2019-04-29] MEDS: Furosemide 20 MG/2 ML VIAL SLOW IVP SCH (09:23)
[2019-04-29 09:43] LABS: #Basophils 0.1 thou/uL (0.0-0.2); #Eosinphils 0.2 thou/uL (0.0-0.7); #Lymphocytes 1.2 thou/uL (1.20-3.40); #Monocytes 0.7 thou/uL (0.11-0.59); #Neutrophils 8.2 thou/uL (1.40-6.50); %Basophils 0.5 % (0.0-1.0); %Eosinophils 1.7 % (0.0-10.0); %Lymphocytes 11.2 % (21.0-51.0); %Neutrophils 79.6 % (42.0-75.0); Hemoglobin 10.5 g/dL (14.0-18.0); Mean Corpuscular HGB CONC 33.3 g/dL (32.0-36.0); Mean Corpuscular Hemoglobin 27.6 pg (27.0-31.0); Mean Platelet Volume 6.3 fL (7.4-10.4); Platelet Count 314 thou/uL (130-400); RBC Distribution Width 14.4 % (11.5-14.5); Red Blood Cell (RBC) Count 3.81 mill/uL (4.70-6.10); White Blood Cell (WBC) Count 10.3 thou/uL (4.8-10.8)
--- NOTE | 2019-04-29 10:05 | PRG ---
DATE OF SERVICE: SUBJECTIVE: Montez Jones is a 69-year-old gentleman. He is much better. No further significant diarrhea. He is on p.o. vancomycin for Clostridium difficile colitis. OBJECTIVE: VITAL SIGNS: Blood pressure 158/83, temperature 98, pulse 76 respiratory rate 18, blood pressure 130/80. GENERAL: Awake, alert, responsive. CHEST: No wheezing or crackles. CARDIAC: Normal S1, S2. No gallops. ABDOMEN: No masses. LABORATORY DATA: Unremarkable. Lytes are normal. IMPRESSION: Clostridium difficile colitis. Abdominal pain status post gall bladder surgery chest pain, resolved. Bedridden. PLAN: Pulmonary bradley, home any time. We will follow at a distance. Job ID: [id number] [id number]
--- NOTE | 2019-04-29 10:07 | PDOC.HOSPP ---
- Subjective Encounter Date: 04/29/19 Encounter Time: 09:58 Subjective: Mr. Jones was seen today in follow-up of GI bleed and USA. He does not have any complaints. The diarrhea is slowing down. His nurse reports about 100ml overnight. - Objective Vital Signs & Weight: Vital Signs (12 hours) Temp Pulse BP 04/29/19 09:23 76 158/83 H 04/29/19 07:11 98.5 F 04/29/19 00:20 97.5 F L Weight Admit Weight 175 lb 14.862 oz Weight 178 lb 3 oz Most Recent Monitor Data Heart Rate from ECG 69 NIBP 176/90 NIBP BP-Mean 118 Respiration from ECG 15 SpO2 99 I&O: 04/28/19 04/29/19 04/30/19 06:59 06:59 06:59 Intake Total 2501.5 2730 Output Total 1600 1175 Balance 901.5 1555 Result Diagrams: 04/29/19 08:48 04/29/19 08:07 Additional Labs: Accuchecks 04/29/19 04/29/19 04/28/19 05:52 00:30 18:58 POC Glucose 141 H 131 H 169 H 04/28/19 12:45 POC Glucose 157 H Hospitalist ROS - Medication Medications: Active Medications Generic Name Dose Route Start Last Admin Trade Name Freq PRN Reason Stop Dose Admin Acetaminophen 1,000 mg 04/25/19 20:57 04/28/19 20:29 Tylenol PO 1,000 mg Q6H PRN Administration Moderate to Severe Pain (6-10) Amlodipine Besylate 10 mg 04/29/19 09:00 04/29/19 09:23 Norvasc PO 10 mg DAILY TIKA Administration Aspirin 81 mg 04/28/19 09:00 04/29/19 09:21 Ecotrin PO 81 mg QAM TIKA Administration Atorvastatin Calcium 10 mg 04/25/19 21:00 04/28/19 20:29 Lipitor PO 10 mg HS TIKA Administration Baclofen 5 mg 04/25/19 21:00 04/29/19 09:23 Lioresal PO 5 mg BID TIKA Administration Chlorpromazine HCl 25 mg 04/24/19 17:30 04/24/19 18:25 Thorazine IM 25 mg Q6H PRN Administration Hiccups Enalaprilat 1.25 mg 04/26/19 12:00 04/29/19 05:45 Vasotec SLOW IVP 1.25 mg Q6HR TIKA Administration Enoxaparin Sodium 40 mg 04/28/19 09:00 04/29/19 09:21 Lovenox SC 40 mg 0900 TIKA Administration Furosemide 20 mg 04/26/19 09:00 04/29/19 09:23 Lasix SLOW IVP 20 mg QAM TIKA Administration Gabapentin 400 mg 04/25/19 21:00 04/29/19 09:22 Neurontin PO 400 mg BID TIKA Administration Hydralazine HCl 10 mg 04/24/19 16:44 04/27/19 07:19 Apresoline SLOW IVP 10 mg Q4H PRN Administration Hypertension Lactated Ringer's 1,000 mls @ 60 mls/hr 04/25/19 11:41 04/29/19 00:24 Lactated Ringer's IV Not Given .[id number] TIKA Potassium Chloride 40 meq/ 100 mls @ 50 mls/hr 04/26/19 05:56 04/27/19 07:22 Device IVPB 100 mls ASDIR PRN Administration FOR SERUM K+ 2.5 - 3.5 Insulin Human Lispro 0 units 04/25/19 13:29 04/25/19 13:57 Humalog SC 2 unit .MILD SLIDING SCALE PRN Administration Mild Correctional Scale Losartan Potassium 100 mg 04/26/19 09:00 04/29/19 09:22 Cozaar PO 100 mg DAILY TIKA Administration Metformin HCl 500 mg 04/26/19 08:00 04/29/19 09:21 Glucophage PO Not Given BID-[facility] Metoprolol Tartrate 5 mg 04/24/19 20:41 04/25/19 02:01 Lopressor IVP 5 mg Q4H PRN Administration HR>100 Metoprolol Tartrate 12.5 mg 04/27/19 21:00 04/29/19 09:22 Lopressor PO 12.5 mg BID TIKA Administration Miscellaneous Information 1 each 04/25/19 21:00 04/28/19 20:36 Communication Order-Pharmacy FS 1 each HS TIKA Administration Nitroglycerin 1 patch 04/26/19 09:00 04/29/19 09:22 Nitro-Dur 0.4mg/Hr Patch TOP 1 patch DAILY TIKA Administration Pantoprazole Sodium 40 mg 04/29/19 09:00 04/29/19 09:23 Protonix PO 40 mg DAILY TIKA Administration Promethazine HCl 6.25 mg 04/24/19 17:19 04/28/19 20:29 Phenergan SLOW IVP 6.25 mg Q6H PRN Administration Nausea Sodium Chloride 10 ml 04/24/19 21:00 04/29/19 09:24 Flush - Normal Saline IVF 10 ml Q12HR TIKA Administration Vancomycin HCl 125 mg 04/28/19 12:00 04/29/19 05:45 First Vancomycin PO 125 mg Q6HR TIKA Administration - Exam Eye: PERRL, anicteric sclera Heart: RRR, no murmur, no gallops, no rubs, normal peripheral pulses Respiratory: CTAB, no wheezes, no rales, no ronchi, normal chest expansion, no tachypnea, normal percussion Gastrointestinal: soft, non-tender, non-distended, normal bowel sounds Extremities: no cyanosis Neurological: hemiplegia Musculoskeletal: diffuse muscle atrophy Hosp A/P (1) Clostridioides difficile diarrhea Code(s): A04.72 - ENTEROCOLITIS D/T CLOSTRIDIUM DIFFICILE, NOT SPCF RECUR Status: Acute (2) GI bleed Code(s): K92.2 - GASTROINTESTINAL HEMORRHAGE, UNSPECIFIED Status: Acute (3) Acute blood loss anemia Code(s): D62 - ACUTE POSTHEMORRHAGIC ANEMIA Status: Acute (4) Unstable angina Status: Acute (5) Hypertension Code(s): I10 - ESSENTIAL (PRIMARY) HYPERTENSION Status: Chronic (6) Diabetes mellitus type 2 in nonobese Code(s): E11.9 - TYPE 2 DIABETES MELLITUS WITHOUT COMPLICATIONS Status: Chronic (7) History of cholecystectomy Code(s): Z90.49 - ACQUIRED ABSENCE OF OTHER SPECIFIED PARTS OF DIGESTIVE TRACT Status: Chronic - Plan * GI- bleed- stable- no further drop in H&H * Continue Protonix * Unstable Angina- stable * Clostridium Dificile diarrhea- continue oral Vancomycin * HTN- blood pressure is elevated-the dose of Amlodipine has been increased * Recent Cholecystectomy, and sphincterotomy- stable * Nutrition- he is tolerating a solid diet * DM- blood glucose is stable * He is likely ready for discharge soon
--- NOTE | 2019-04-29 10:30 | PDOC.HOSPP ---
- Subjective Encounter Date: 04/29/19 Encounter Time: 10:28 Subjective: Duplicate note - Objective Vital Signs & Weight: Vital Signs (12 hours) Temp Pulse BP 04/29/19 09:23 76 158/83 H 04/29/19 07:11 98.5 F 04/29/19 00:20 97.5 F L Weight Admit Weight 175 lb 14.862 oz Weight 178 lb 3 oz Most Recent Monitor Data Heart Rate from ECG 69 NIBP 176/90 NIBP BP-Mean 118 Respiration from ECG 15 SpO2 99 I&O: 04/28/19 04/29/19 04/30/19 06:59 06:59 06:59 Intake Total 2501.5 2730 Output Total 1600 1175 Balance 901.5 1555 Result Diagrams: 04/29/19 08:48 04/29/19 08:07 Additional Labs: Accuchecks 04/29/19 04/29/19 04/28/19 05:52 00:30 18:58 POC Glucose 141 H 131 H 169 H 04/28/19 12:45 POC Glucose 157 H Hospitalist ROS - Medication Medications: Active Medications Generic Name Dose Route Start Last Admin Trade Name Freq PRN Reason Stop Dose Admin Acetaminophen 1,000 mg 04/25/19 20:57 04/28/19 20:29 Tylenol PO 1,000 mg Q6H PRN Administration Moderate to Severe Pain (6-10) Amlodipine Besylate 10 mg 04/29/19 09:00 04/29/19 09:23 Norvasc PO 10 mg DAILY TIKA Administration Aspirin 81 mg 04/28/19 09:00 04/29/19 09:21 Ecotrin PO 81 mg QAM TIKA Administration Atorvastatin Calcium 10 mg 04/25/19 21:00 04/28/19 20:29 Lipitor PO 10 mg HS TIKA Administration Baclofen 5 mg 04/25/19 21:00 04/29/19 09:23 Lioresal PO 5 mg BID TIKA Administration Chlorpromazine HCl 25 mg 04/24/19 17:30 04/24/19 18:25 Thorazine IM 25 mg Q6H PRN Administration Hiccups Enalaprilat 1.25 mg 04/26/19 12:00 04/29/19 05:45 Vasotec SLOW IVP 1.25 mg Q6HR TIKA Administration Enoxaparin Sodium 40 mg 04/28/19 09:00 04/29/19 09:21 Lovenox SC 40 mg 0900 TIKA Administration Furosemide 20 mg 04/26/19 09:00 04/29/19 09:23 Lasix SLOW IVP 20 mg QAM TIKA Administration Gabapentin 400 mg 04/25/19 21:00 04/29/19 09:22 Neurontin PO 400 mg BID TIKA Administration Hydralazine HCl 10 mg 04/24/19 16:44 04/27/19 07:19 Apresoline SLOW IVP 10 mg Q4H PRN Administration Hypertension Lactated Ringer's 1,000 mls @ 60 mls/hr 04/25/19 11:41 04/29/19 00:24 Lactated Ringer's IV Not Given .[id number] TIKA Potassium Chloride 40 meq/ 100 mls @ 50 mls/hr 04/26/19 05:56 04/27/19 07:22 Device IVPB 100 mls ASDIR PRN Administration FOR SERUM K+ 2.5 - 3.5 Insulin Human Lispro 0 units 04/25/19 13:29 04/25/19 13:57 Humalog SC 2 unit .MILD SLIDING SCALE PRN Administration Mild Correctional Scale Losartan Potassium 100 mg 04/26/19 09:00 04/29/19 09:22 Cozaar PO 100 mg DAILY TIKA Administration Metformin HCl 500 mg 04/26/19 08:00 04/29/19 09:21 Glucophage PO Not Given BID-WM TIKA Metoprolol Tartrate 5 mg 04/24/19 20:41 04/25/19 02:01 Lopressor IVP 5 mg Q4H PRN Administration HR>100 Metoprolol Tartrate 12.5 mg 04/27/19 21:00 04/29/19 09:22 Lopressor PO 12.5 mg BID TIKA Administration Miscellaneous Information 1 each 04/25/19 21:00 04/28/19 20:36 Communication Order-Pharmacy FS 1 each HS TIKA Administration Nitroglycerin 1 patch 04/26/19 09:00 04/29/19 09:22 Nitro-Dur 0.4mg/Hr Patch TOP 1 patch DAILY TIKA Administration Pantoprazole Sodium 40 mg 04/29/19 09:00 04/29/19 09:23 Protonix PO 40 mg DAILY TIKA Administration Promethazine HCl 6.25 mg 04/24/19 17:19 04/28/19 20:29 Phenergan SLOW IVP 6.25 mg Q6H PRN Administration Nausea Sodium Chloride 10 ml 04/24/19 21:00 04/29/19 09:24 Flush - Normal Saline IVF 10 ml Q12HR TIKA Administration Vancomycin HCl 125 mg 04/28/19 12:00 04/29/19 05:45 First Vancomycin PO 125 mg Q6HR TIKA Administration - Exam Eye: PERRL Heart: RRR, no murmur, no gallops Respiratory: CTAB, no wheezes, no rales, no ronchi, normal chest expansion Gastrointestinal: soft, non-tender, non-distended, normal bowel sounds, no palpable masses Extremities: 1+ LE edema (edema in both the left upper and lower extremity) Hosp A/P (1) Clostridioides difficile diarrhea Code(s): A04.72 - ENTEROCOLITIS D/T CLOSTRIDIUM DIFFICILE, NOT SPCF RECUR Status: Acute (2) GI bleed Code(s): K92.2 - GASTROINTESTINAL HEMORRHAGE, UNSPECIFIED Status: Acute (3) Acute blood loss anemia Code(s): D62 - ACUTE POSTHEMORRHAGIC ANEMIA Status: Acute (4) Unstable angina Status: Acute (5) Hypertension Code(s): I10 - ESSENTIAL (PRIMARY) HYPERTENSION Status: Chronic (6) Diabetes mellitus type 2 in nonobese Code(s): E11.9 - TYPE 2 DIABETES MELLITUS WITHOUT COMPLICATIONS Status: Chronic (7) History of cholecystectomy Code(s): Z90.49 - ACQUIRED ABSENCE OF OTHER SPECIFIED PARTS OF DIGESTIVE TRACT Status: Chronic - Plan * GI- bleed- stable- no further drop in H&H * Continue Protonix * Unstable Angina- stable * Clostridium Dificile diarrhea- continue oral Vancomycin * HTN- blood pressure is elevated-the dose of Amlodipine has been increased * Recent Cholecystectomy, and sphincterotomy- stable * Nutrition- he is tolerating a solid diet * DM- blood glucose is stable * He is likely ready for discharge soon
--- NOTE | 2019-04-29 12:09 | PQF ---
DATE: 04-29-19: ATTN: DR. JOSETTE VICTOR Please exercise your independent, professional judgment in responding to the clarification form. Clinical indicators are provided on the bottom of this form for your review Please check appropriate box(s) to clarify if the following diagnosis has been ruled in or ruled out: NON-Q WAVE PA [ ] Ruled in diagnosis [ ] Continue to treat [ ] Resolved [ ] Ruled out diagnosis [ X] Other diagnosis __Unstable angina [ ] Unable to determine In addition, please specify: Present on Admission (POA): [ ] Yes [ X ] No [ ] Unable to determine For continuity of documentation, please document condition throughout progress notes and discharge summary. Thank You. CLINICAL INDICATORS - SIGNS / SYMPTOMS / LABS / RESULTS AND LOCATION IN MR: ER DX 04-24-19: ABD PAIN, CP, UGI BLEED H&P: 04-24-19: HE STARTED HAVING THROWING UP ALL NIGHT AND THIS MORNING, HE STARTED HAVING COFFEE-GROUND EMESIS, ALSO HAD A CHEST PAIN LAST NIGHT. CHEST PAIN, MOST LIKELY SECONDARY TO RETCHING. CONSULT NOTE DR. 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 F/U EKG SHOWED A MARKED ST ABNORMALITY SUGGESTIVE OF SUBENDOCARDIAL INJURY RISK FACTORS / RESULTS AND LOCATION IN MR: CONSULT NOTE DR. MCGARRY 04-24-19: HX OF MYOCARDIAL INFARCTION, HTN TREATMENTS / RESULTS AND LOCATION IN MR: F/U EKG SHOWED A MARKED ST ABNORMALITY SUGGESTIVE OF SUBENDOCARDIAL INJURY TROPONIN SERIES 04-24-19 TO 04-25-[address] MCGARRY 04-24-19 (This form is maintained as a part of the permanent medical record) 2014 [employer]. All Rights Reserved [email or web address] Office: [phone] [facility]
--- NOTE | 2019-04-29 12:54 | PQF ---
DATE: 04-29-19 ATTN: DR. JOSETTE VICTOR Please exercise your independent, professional judgment in responding to the clarification form. Clinical indicators are provided on the bottom of this form for your review Please check appropriate box(s): [X ] Hemiplegia Specify: [ X ] Non dominant side [ ] Dominant side Status: [ X ] Complete [ ] Incomplete [ ] Paraplegia Specify: [ ] Non dominant side [ ] Dominant side Status: [ ] Complete [ ] Incomplete [ ] Quadriplegia [ ] Functional Quadriplegia (specify underlying cause) [ ] Other diagnosis [ ] Unable to determine In addition, please specify: Present on Admission (POA): [ X ] Yes [ ] No [ ] Unable to determine CLINICAL INDICATORS - SIGNS / SYMPTOMS / LABS/ RESULTS AND LOCATION IN MR: ER NOTE 04-24-19: PT CANNOT MOVE HIS ARMS AND SHOULDERS, HX: HEART ATTACKS, STROKES, HTN, SURGERY, QUADRIPLEGIC H&P 04-24-19: PATIENT WITH BASELINE CONTRACTURES, HX OF CVA WITH L HEMIPARESIS. THE PATIENT IS BED BOUND STATUS. CONSULT DR. PUTNAM 04-27-19: HE US UNABLE TO PUT A FINGER BECAUSE HE IS ESSENTIALLY QUADRIPLEGIC; PREVIOUS CVA; PREVIOUS MULTIPLE SURGERIES. RISK FACTORS / RESULTS AND LOCATION IN MR: CONSULT DR. PUTNAM 04-27-19: HE US UNABLE TO PUT A FINGER BECAUSE HE IS ESSENTIALLY QUADRIPLEGIC; PREVIOUS CVA; PREVIOUS MULTIPLE SURGERIES. TREATMENT / RESULTS AND LOCATION IN MR: FEEDING ASSISTANCE 04-26-19: BREAKFAST TOTAL ASSISTANCE THROUGH 04-29-19: TOTAL ASSISTANCE WITH FEEDING NURSE ASSESSMENT 04-29-19: CAN NOT WALK, CAN NOT STAND, 2 PERSON ASSIST (This form is maintained as a part of the permanent medical record) 2014 [employer]. All Rights Reserved [email or web address] Office: [phone] [facility]
[2019-04-29] MEDS: Acetaminophen 500 MG TAB PO PRN (14:38)
[2019-04-29] MEDS: Atorvastatin Calcium 10 MG TAB PO SCH (20:53)
[2019-04-29] MEDS: Promethazine HCl 25 MG/ML VIAL SLOW IVP PRN (20:54)
[2019-04-29] MEDS: NITROGLYCERIN PATCH REMOVAL FS SCH (20:55)
[2019-04-29 23:16] VITALS: TEMP 98.4
[2019-04-30] MEDS: Lactated Ringer's 1,000 ML IV SCH (05:30)
[2019-04-30] MEDS: Vancomycin HCl 25 MG/ML Oral PO SCH ×3 (05:31→17:28)
[2019-04-30] MEDS: Enalaprilat Dihydrate 1.25 MG/ML VIAL SLOW IVP SCH ×2 (05:31→13:43)
[2019-04-30 06:13] LABS: Anion Gap 10 mmol/L (10-20); BUN (Urea Nitrogen) 8 mg/dL (8.4-25.7); Calc. Creatinine Clearance 114 mL/min (70-130); Carbon Dioxide 29 mmol/L (23-31); Chloride 101 mmol/L (98-107); Estimated GFR-MDRD Greater than 90; Glucose 147 mg/dL (80-115); Sodium 137 mmol/L (136-145)
[2019-04-30 06:16] LABS: Potassium 2.9 mmol/L (3.5-5.1)
[2019-04-30] MEDS ORDERED: Potassium Chloride 40 MEQ in Premix Bag 1 BAG IVPB SCH (08:45)
[2019-04-30] MEDS ORDERED: Potassium Chloride 20 MEQ in Premix Bag 1 BAG IVPB SCH ×2 (08:45→09:00)
--- NOTE | 2019-04-30 08:53 | PRG ---
DATE OF SERVICE: 04/29/2019 SUBJECTIVE: Mr. Jones continues to have liquidy stool into his rectal tube. He has no abdominal pain. He states that he is tolerating his diet well without nausea. OBJECTIVE: VITAL SIGNS: Temperature 98.4, blood pressure 158/83, and pulse 76. GENERAL: He is in no acute distress. Alert and oriented x3. LUNGS: Clear to auscultation bilaterally. HEART: Regular rate and rhythm without murmur. ABDOMEN: Soft, nontender, and nondistended. Bowel sounds are present. EXTREMITIES: trace lower extremity edema IMPRESSION: 1. Clostridium difficile colitis. We will continue vancomycin four times daily by mouth. He should be okay to discharge when diarrhea is under adequate control. 2. Chronic nausea and vomiting. Likely does have some delayed gastric emptying or dysmotility related to diabetes. His Reglan is held due to the diarrhea. He seems to be doing better overall for nauseous standpoint and is tolerating a low-fiber diet. 3. Anemia with question of hematemesis previously. He has been on proton pump inhibitor daily. RECOMMENDATIONS: 1. Complete a 14-day course of vancomycin four times daily. 2. Discharge home once diarrhea is under adequate control. 3. We would continue once daily PPI. 4. I will sign off. Please call if GI can be of assistance. Job ID: [id number] [facility] CENTERJean Marie
--- NOTE | 2019-04-30 08:56 | PRG ---
DATE OF SERVICE: 04/30/2019 SUBJECTIVE: Mr. Jones is doing well. No current complaints. He mainly only complains of overall body aches and pains. No chest pain or pressure. His blood pressure also appears more stable. OBJECTIVE: VITAL SIGNS: Blood pressure 155/71, pulse 72, temperature afebrile. LUNGS: Clear to auscultation. HEART: Regular rate and rhythm. ABDOMEN: Soft, nontender, nondistended. EXTREMITIES: No edema. PERTINENT LABORATORY DATA: Hemoglobin 10.5, hematocrit 31.6, potassium 2.9. IMPRESSION: 1. Chest pain. 2. Clostridium difficile infection. 3. Recent cholecystectomy. 4. Previous stroke. 5. Hypertension. RECOMMENDATIONS: 1. Continue amlodipine 10 mg 1 p.o. q.a.m. and aspirin 81 daily and atorvastatin 10 daily. 2. Change Lasix to 20 mg 1 p.o. q.a.m. 3. Continue losartan 100 mg 1 p.o. q.i.d. and metoprolol 12.5 mg 1 p.o. b.i.d. From my standpoint, I have no further recommendations. The patient appears to be cardiovascularly stable. His LVEF is normal with no ischemia. Please re-consult if needed. Job ID: [id number]
[2019-04-30] MEDS: metFORMIN 500 MG TAB PO SCH ×2 (09:13→16:45)
[2019-04-30] MEDS: Amlodipine 10 MG TAB PO SCH (09:13)
[2019-04-30] MEDS: Aspirin 81 mg Enteric Coated Tablet PO SCH (09:14)
[2019-04-30] MEDS: Baclofen 10 MG TAB PO SCH (09:14)
[2019-04-30] MEDS: Gabapentin 400 MG CAP PO SCH (09:15)
[2019-04-30] MEDS: Losartan 25 MG TAB PO SCH (09:15)
[2019-04-30] MEDS: Furosemide 20 MG/2 ML VIAL SLOW IVP SCH (09:15)
[2019-04-30] MEDS: Enoxaparin Sodium 40 MG/0.4 ML SYRINGE SC SCH (09:15)
[2019-04-30] MEDS: Nitroglycerin 0.4mg/Hour PATCH TOP SCH (09:16)
[2019-04-30] MEDS: Metoprolol Tartrate 25 MG TAB PO SCH (09:16)
[2019-04-30 09:19] VITALS: BP 131/83
[2019-04-30] MEDS: Acetaminophen 500 MG TAB PO PRN ×2 (09:19→17:27)
--- NOTE | 2019-04-30 09:58 | PDOC.HOSPP ---
- Subjective Encounter Date: 04/30/19 Encounter Time: 09:56 Subjective: Mr. Jones was seen today in follow-up of GI Bleed, and USA. He does not have any new complaints. He has been having quite a few hiccups. - Objective Vital Signs & Weight: Vital Signs (12 hours) Temp Pulse BP 04/30/19 09:13 82 131/83 04/29/19 23:16 98.4 F Weight Admit Weight 175 lb 14.862 oz Weight 177 lb 14.4 oz Most Recent Monitor Data Heart Rate from ECG 72 NIBP 155/71 NIBP BP-Mean 99 Respiration from ECG 22 SpO2 98 I&O: 04/29/19 04/30/19 05/01/19 06:59 06:59 06:59 Intake Total 2730 2570 Output Total 1175 650 Balance 1555 1920 Result Diagrams: 04/29/19 08:48 04/30/19 05:30 Additional Labs: Accuchecks 04/29/19 04/29/19 04/29/19 23:57 18:32 12:26 POC Glucose 163 H 174 H 176 H Hospitalist ROS - Medication Medications: Active Medications Generic Name Dose Route Start Last Admin Trade Name Freq PRN Reason Stop Dose Admin Acetaminophen 1,000 mg 04/25/19 20:57 04/30/19 09:19 Tylenol PO 1,000 mg Q6H PRN Administration Moderate to Severe Pain (6-10) Amlodipine Besylate 10 mg 04/29/19 09:00 04/30/19 09:13 Norvasc PO 10 mg DAILY TIKA Administration Aspirin 81 mg 04/28/19 09:00 04/30/19 09:14 Ecotrin PO 81 mg QAM TIKA Administration Atorvastatin Calcium 10 mg 04/25/19 21:00 04/29/19 20:53 Lipitor PO 10 mg HS TIKA Administration Baclofen 5 mg 04/25/19 21:00 04/30/19 09:14 Lioresal PO 5 mg BID TIKA Administration Chlorpromazine HCl 25 mg 04/24/19 17:30 04/24/19 18:25 Thorazine IM 25 mg Q6H PRN Administration Hiccups Enalaprilat 1.25 mg 04/26/19 12:00 04/30/19 05:31 Vasotec SLOW IVP 1.25 mg Q6HR TIKA Administration Enoxaparin Sodium 40 mg 04/28/19 09:00 04/30/19 09:15 Lovenox SC 40 mg 0900 TIKA Administration Furosemide 20 mg 04/26/19 09:00 04/30/19 09:15 Lasix SLOW IVP 20 mg QAM TIKA Administration Gabapentin 400 mg 04/25/19 21:00 04/30/19 09:15 Neurontin PO 400 mg BID TIKA Administration Hydralazine HCl 10 mg 04/24/19 16:44 04/27/19 07:19 Apresoline SLOW IVP 10 mg Q4H PRN Administration Hypertension Lactated Ringer's 1,000 mls @ 60 mls/hr 04/25/19 11:41 04/30/19 05:30 Lactated Ringer's IV 1,000 mls .[id number] TIKA Administration Potassium Chloride 40 meq/ 100 mls @ 50 mls/hr 04/26/19 05:56 04/27/19 07:22 Device IVPB 100 mls ASDIR PRN Administration FOR SERUM K+ 2.5 - 3.5 Insulin Human Lispro 0 units 04/25/19 13:29 04/25/19 13:57 Humalog SC 2 unit .MILD SLIDING SCALE PRN Administration Mild Correctional Scale Losartan Potassium 100 mg 04/26/19 09:00 04/30/19 09:15 Cozaar PO 100 mg DAILY TIKA Administration Metformin HCl 500 mg 04/26/19 08:00 04/30/19 09:13 Glucophage PO Not Given BID-WM TIKA Metoprolol Tartrate 5 mg 04/24/19 20:41 04/25/19 02:01 Lopressor IVP 5 mg Q4H PRN Administration HR>100 Metoprolol Tartrate 12.5 mg 04/27/19 21:00 04/30/19 09:16 Lopressor PO 12.5 mg BID TIKA Administration Miscellaneous Information 1 each 04/25/19 21:00 04/29/19 20:55 Communication Order-Pharmacy FS 1 each HS TIKA Administration Nitroglycerin 1 patch 04/26/19 09:00 04/30/19 09:16 Nitro-Dur 0.4mg/Hr Patch TOP 1 patch DAILY TIKA Administration Pantoprazole Sodium 40 mg 04/29/19 09:00 04/30/19 09:17 Protonix PO 40 mg DAILY TIKA Administration Potassium Chloride 40 meq 04/26/19 05:56 04/30/19 06:22 K-Dur PO 40 meq ASDIR PRN Administration FOR SERUM K+ 2.5 - 3.5 Promethazine HCl 6.25 mg 04/24/19 17:19 04/29/19 20:54 Phenergan SLOW IVP 6.25 mg Q6H PRN Administration Nausea Sodium Chloride 10 ml 04/24/19 21:00 04/30/19 09:17 Flush - Normal Saline IVF 10 ml Q12HR TIKA Administration Vancomycin HCl 125 mg 04/28/19 12:00 04/30/19 05:31 First Vancomycin PO 125 mg Q6HR TIKA Administration - Exam Eye: PERRL Heart: RRR, no murmur, no gallops, no rubs, normal peripheral pulses Respiratory: CTAB, no wheezes, no rales, no ronchi, normal chest expansion Gastrointestinal: soft, non-tender, non-distended, normal bowel sounds, no palpable masses, no hepatomegaly Extremities: no cyanosis, 1+ LE edema Neurological: hemiplegia Hosp A/P (1) Clostridioides difficile diarrhea Code(s): A04.72 - ENTEROCOLITIS D/T CLOSTRIDIUM DIFFICILE, NOT SPCF RECUR Status: Acute (2) GI bleed Code(s): K92.2 - GASTROINTESTINAL HEMORRHAGE, UNSPECIFIED Status: Acute (3) Acute blood loss anemia Code(s): D62 - ACUTE POSTHEMORRHAGIC ANEMIA Status: Acute (4) Unstable angina Status: Acute (5) Hypertension Code(s): I10 - ESSENTIAL (PRIMARY) HYPERTENSION Status: Chronic (6) Diabetes mellitus type 2 in nonobese Code(s): E11.9 - TYPE 2 DIABETES MELLITUS WITHOUT COMPLICATIONS Status: Chronic (7) History of cholecystectomy Code(s): Z90.49 - ACQUIRED ABSENCE OF OTHER SPECIFIED PARTS OF DIGESTIVE TRACT Status: Chronic - Plan * Hypokalemia- due to diarrhea from C. Diff- continue to replace * GI- bleed- stable- no further drop in H&H * Continue Protonix * Unstable Angina- stable * Clostridium Dificile diarrhea- continue oral Vancomycin * HTN- blood pressure is better * Recent Cholecystectomy, and sphincterotomy- stable * Nutrition- he is tolerating a solid diet * DM- blood glucose is stable * Hopefully home soon
[2019-04-30 16:26] LABS: Potassium 3.5 mmol/L (3.5-5.1)
--- NOTE | 2019-05-01 00:12 | DIS ---
DATE OF ADMISSION: 04/24/2019 DATE OF DISCHARGE: 04/30/2019 DISCHARGE DISPOSITION: Home. PRIMARY DISCHARGE DIAGNOSES: 1. Gastrointestinal bleed, likely secondary to gastritis. 2. Clostridium difficile colitis. 3. Unstable angina. 4. Recent cholecystectomy and endoscopic retrograde cholangiopancreatography with sphincterotomy. 5. History of cerebrovascular disease with right-sided hemiparesis. 6. Diabetes mellitus, type 2. 7. Hypertension. DISCHARGE MEDICATIONS: Include; 1. Oral vancomycin 125 mg p.o. q.6 for 7 days. 2. Potassium chloride 20 mEq daily. 3. Protonix 40 mg daily. 4. Lopressor 12.5 mg p.o. twice daily. 5. Magnesium oxide 400 mg daily. 6. Extra-strength Tylenol 1000 mg q.6 as needed. 7. Simvastatin 20 mg at bedtime. 8. Metformin 500 mg twice daily. 9. Losartan 100 mg daily. 10. Gabapentin 400 mg twice a day. 11. Furosemide 20 mg daily. 12. Baclofen 5 mg p.o. twice a day. 13. Aspirin 81 mg p.o. b.i.d. PROCEDURES DONE DURING ADMISSION: The patient had a CT scan of the abdomen showing some hemorrhage in the gallbladder fossa. There was a right hepatic lobe, some free air, and a moderate right pleural effusion, and some evidence of thickening of the esophagus. The patient also had a hepatobiliary scan, which was negative for biliary leak. Also, had an upper GI showing some significant reflux and findings consistent with gastroparesis. CODE STATUS: Full code. ALLERGIES: TO IBUPROFEN, ASPIRIN, AND FLUOXETINE. HOSPITAL COURSE: Mr. Jones is a pleasant 69-year-old gentleman, who presented to the emergency room with complaints of vomiting blood , GI bleed, and intractable nausea and vomiting. He was brought into the hospital and a CT scan was done due to the recent history of ERCP and cholecystectomy. This demonstrated some blood in the gallbladder fossa, but this is likely expected postoperatively. He was evaluated by Software Development Analyst, who did not believe that the hematemesis or coffee ground emesis was a complication from the procedure. Upper GI shows some evidence of gastroparesis, and reflux. Also during the course of his hospital stay, he had an episode of chest pain and unstable angina. Cardiology was consulted and he was treated medically for this. He was placed empirically on IV antibiotics on admission due to concerns for the GI complaint. These were later discontinued. The patient unfortunately developed some diarrhea, which was positive for C diff. He was placed on oral vancomycin for this. He had some electrolyte abnormalities likely related to the diarrhea, which was corrected. After this was accomplished, his medications for blood pressure was also adjusted. He had the addition of amlodipine and the dose was increased up to 10 mg due to elevated blood pressure during his hospital stay and the patient stated that he felt capable of managing at home and he has been doing this for years despite his disability and therefore will be discharged home today and he is being discharged in stable condition. Job ID: [id number]
== END 2019-04-30 18:30 | disposition home or self-care (01) | DRG 378 ==
LOC: ERS 09:04 → ERHOLD 12:41 → 2NO 16:13 → CCU 18:56 → IMCU/EMU 04-26 12:37
PROVIDERS: ADMIT Internal Medicine; ATTEND Internal Medicine
PROC: 02H633Z Insertion of Infusion Device into Right Atrium, Percutaneous Approach (ICD-10-PCS; principal; 2019-04-24)
PROC: 30233N1 Transfusion of Nonautologous Red Blood Cells into Peripheral Vein, Percutaneous Approach (ICD-10-PCS; 2019-04-25)
PROC: 3E02340 Introduction of Influenza Vaccine into Muscle, Percutaneous Approach (ICD-10-PCS; 2019-04-25)
DX: K29.71 Gastritis, unspecified, with bleeding (principal); J90 Pleural effusion, not elsewhere classified; I69.354 Hemiplegia and hemiparesis following cerebral infarction affecting left non-dominant side; D62 Acute posthemorrhagic anemia; I25.110 Atherosclerotic heart disease of native coronary artery with unstable angina pectoris; A04.72 Enterocolitis due to Clostridium difficile, not specified as recurrent; Z23 Encounter for immunization; E11.51 Type 2 diabetes mellitus with diabetic peripheral angiopathy without gangrene; I10 Essential (primary) hypertension; I16.0 Hypertensive urgency; I95.2 Hypotension due to drugs; T46.5X5A Adverse effect of other antihypertensive drugs, initial encounter; E87.6 Hypokalemia; K31.84 Gastroparesis; E11.43 Type 2 diabetes mellitus with diabetic autonomic (poly)neuropathy; Z74.01 Bed confinement status; I25.2 Old myocardial infarction; Z85.038 Personal history of other malignant neoplasm of large intestine; Z90.49 Acquired absence of other specified parts of digestive tract; Z88.8 Allergy status to other drugs, medicaments and biological substances; Z79.84 Long term (current) use of oral hypoglycemic drugs; Z79.82 Long term (current) use of aspirin; Z79.899 Other long term (current) drug therapy; Z88.6 Allergy status to analgesic agent; K21.9 Gastro-esophageal reflux disease without esophagitis
CPT/HCPCS: 36415; 36416; 36430; 51702; 71045; 74018; 74019; 74177; 74241; 78226; 80048; 80053; 80202; 82553; 83605; 83690; 83735; 83880; 84484; 85025; 86850; 86900; 86901; 87040; 87324; 87449; 87493; 93005; 93010; 96361; 96365; 96366; 96375; 96376; A9537; C9113; J0131; J0360; J1650; J1940; J2185; J2405; J2550; J3230; J3370; J3480; J3490; P9016; Q0162; Q9966

== ENCOUNTER 2019-05-06 01:44 | Inpatient (IN) | payer MEDICARE ==
[2019-05-06 02:03] VITALS: BMI 26.3
[2019-05-06] MEDS ORDERED: Bisacodyl 10 MG SUPP PR PRN (02:36)
[2019-05-06] MEDS ORDERED: Dextrose 50% Abboject 50 ML SYRINGE SLOW IVP PRN (02:36)
[2019-05-06] MEDS ORDERED: HumaLOG 300 UNITS/3 ML VIAL SC PRN (02:36)
[2019-05-06] MEDS ORDERED: hydrALAZINE 20 MG/ML VIAL SLOW IVP PRN (02:36)
[2019-05-06] MEDS ORDERED: Metoclopramide HCl 10 MG/2 ML VIAL IVP PRN (02:36)
[2019-05-06] MEDS ORDERED: Ondansetron ODT 4 MG TAB PO PRN (02:36)
[2019-05-06] MEDS ORDERED: cloNIDine 0.1 MG TAB PO PRN (02:36)
[2019-05-06] MEDS ORDERED: Dextrose 5% in Water 1,000 ML IV PRN (02:36)
[2019-05-06] MEDS ORDERED: chlorproMAZINE HCl 25 MG in Sodium Chloride 0.9% 50 ML IVPB PRN (02:56)
--- NOTE | 2019-05-06 03:54 | HP ---
PRIMARY CARE PROVIDER: Zaira Rey NP CHIEF COMPLAINT: Abdominal distention with nausea and vomiting. HISTORY OF PRESENT ILLNESS: This is a 69-year-old male, who presents to [facility] in transfer from [facility], where the patient was recently admitted on 05/04/2019 for intractable nausea and vomiting. The patient's history is significant for acute cholecystitis status post laparoscopic cholecystectomy, converting to open cholecystectomy due to adhesions. The patient was admitted to [facility] from 04/24 through 04/30/2019 due to cholecystitis with nausea and vomiting. The patient also exhibited hematemesis, undergoing EGD evaluation showing esophagitis. The patient was also noted on CT imaging showing evidence of hematoma in the gallbladder fossa in the context of postoperative changes. The patient also developed diarrhea, positive for Clostridium difficile antigen and toxin, initiated on oral vancomycin. The patient apparently was discharged home on 04/30/2019, but never filled the vancomycin prescription. The patient states he has been doing fairly well over the last 48 hours, however, noted increasing abdominal distention with nausea and vomiting and general malaise. The patient states he normally is assisted by his family members for activities of daily living, as well as general care. The patient's last oral intake was 48 hours prior to this evaluation. Last bowel movement 72 hours prior to this evaluation. The patient was managed by Dr. Colvin at [facility], however due to worsening abdominal distention and concern for clinical decline, patient was referred to [facility] for evaluation. PAST MEDICAL HISTORY: 1. Hypertension. 2. Diabetes mellitus, type 2. 3. Coronary artery disease. 4. 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 5. Bed-bound status. 6. Esophagitis. 7. Status post acute cholecystitis with open cholecystectomy. PAST SURGICAL HISTORY: 1. Status post EGD in 2011. 2. Status post right hemicolectomy 2011, secondary to adenocarcinoma. 3. Status post laparoscopic hand assisted right colectomy. 4. Status post resection of the terminal ileum and proximal transverse colostomy with redo of the anastomosis. 5. Status post cervical spine surgery. 6. Status post appendectomy. 7. Status post cholecystectomy. 8. Status post endoscopic retrograde cholangiopancreatography with sphincterotomy. CURRENT MEDICATIONS: 1. Amlodipine 10 mg p.o. daily. 2. Potassium chloride 20 mEq p.o. daily. 3. Protonix 40 mg p.o. daily. 4. Lopressor 12.5 mg p.o. b.i.d. 5. Magnesium oxide 400 mg p.o. daily. 6. Simvastatin 20 mg p.o. at bedtime. 7. Acetaminophen 1000 mg p.o. q.6 hours p.r.n. pain. 8. Metformin 500 mg p.o. b.i.d. 9. Losartan 100 mg p.o. daily. 10. Gabapentin 400 mg p.o. b.i.d. 11. Lasix 20 mg p.o. daily. 12. Baclofen 5 mg p.o. b.i.d. 13. Aspirin 81 mg p.o. daily. ALLERGIES: TO IBUPROFEN AND FLUOXETINE. FAMILY HISTORY: No inheritable diseases per patient report. SOCIAL HISTORY: The patient resides in the [facility] with his son and [id number], who assisted with activities of daily living and general hygiene. No current alcohol, tobacco, or illicit drug use. REVIEW OF SYSTEMS: CONSTITUTIONAL: Negative for weight loss or gain, ability to conduct usual activities. SKIN: Negative for rash, itching. EYES: Negative for double vision, pain. ENT/MOUTH: Negative for nose bleeding, neck stiffness, pain, tenderness. CARDIOVASCULAR: Negative for palpitations, dyspnea on exertion, orthopnea. RESPIRATORY: Negative for shortness of breath, wheezing, cough, hemoptysis, fever or night sweats. GASTROINTESTINAL: Negative for poor appetite, abdominal pain, heartburn, nausea, vomiting, constipation, or diarrhea. GENITOURINARY: Negative for urgency, frequency, dysuria, nocturia. MUSCULOSKELETAL: Negative for pain, swelling. NEUROLOGIC/PSYCHIATRIC: Negative for anxiety, depression. ALLERGY/IMMUNOLOGIC: Negative for skin rash, bleeding tendency. Otherwise negative except as stated per HPI. PHYSICAL EXAMINATION: VITAL SIGNS: On admission, blood pressure 135/84, pulse 85, respiratory rate is 20, temperature 97.1 degrees Fahrenheit, O2 saturation 96% on room air. GENERAL APPEARANCE: This is a 69-year-old male, alert and oriented x3, pleasant, in no acute distress. HEENT: Pupils are equal, round, reactive to light and accommodation. Extraocular muscles are intact. No scleral icterus. No conjunctival injection. Nares patent. OP is clear. Oral mucosa dry appearing. NECK: Supple. No cervical adenopathy. No thyromegaly. No carotid bruits. No JVD appreciated. Cervical spine with full active and passive range of motion. No meningeal signs noted. CHEST: Lungs are clear to auscultation bilaterally. CARDIOVASCULAR: S1, S2 without noted murmur, rub, or gallop. ABDOMEN: Distended with mild tenderness to palpation in the mid epigastric and right upper quadrant region. Bowel sounds absent in all 4 quadrants. Postsurgical changes noted. EXTREMITIES: Warm and dry with fair turgor. No clubbing, cyanosis, or asymmetric edema appreciated. Pulses palpable distally at the dorsalis pedis, posterior tibial, and popliteal arteries bilaterally. Capillary refill less than 2 seconds. NEUROLOGIC: Chronic right hemiparesis. Cranial nerves 2 through 12 are grossly intact. Contractures of the left upper extremity and hand. PERTINENT LABORATORY AND X-RAY FINDINGS: Basic metabolic profile within normal limits. A1c 7.8, 01/06/2019. Calcium 8.4. LFTs within normal limits. Albumin 3.2. CBC showed a white blood cell count of 11.3, hemoglobin 10, hematocrit 33, MCV 85, platelet count 492 with normal differential. C difficile antigen and toxin positive 04/27/2019. CT of the abdomen and pelvis dated 05/04/2019, showed interval decrease in size of complex postsurgical hematoma in the right upper quadrant. Interval decrease in size of right pleural effusion. Esophagitis persists. Severe atherosclerosis of the abdominal aorta and iliac arteries. Abdominal radiographs dated 05/05/2019, showed uninterpretable film. Portable chest x-ray dated 05/05/2019, showed right pleural effusion. ASSESSMENT AND PLAN: 1. Ileus. The patient with likely postoperative ileus. The patient offered NG tube, however, is requesting conservative management without the NG tube placement. N.p.o. except for medications and sips of water. Consult General Surgery Service in the a.m. Add Reglan 10 mg IV q.[address] of the abdomen and pelvis in the a.m. 2. Nausea and vomiting, suspect secondary to #1. Continue antiemetics with Zofran and intravenous normal saline. 3. Intractable hiccups. Add Thorazine at 25 mg IV q.6 hours p.r.n. 4. Clostridium difficile colitis. Suspected after recent positive Clostridium difficile antigen and toxin 04/27/2019. Continue vancomycin 125 mg p.o. q.6 hours. Contact precautions. 5. Prophylaxis. SCDs while in bed. Pepcid 20 mg IV q.12 hours. 6. Code status is full. Surrogate medical decision maker is the patient's daughter. Job ID: [id number]
[2019-05-06] MEDS: D5 NS w/ 40 mEq KCl 1,000 ML IV SCH ×3 (04:17→15:36)
[2019-05-06] MEDS: Vancomycin HCl 25 MG/ML Oral PO SCH ×4 (06:06→23:46)
[2019-05-06] MEDS ORDERED: Prevnar 13-Val Conj/PF 0.5 ML SYRINGE IM ONE (09:00)
[2019-05-06] MEDS ORDERED: Famotidine/PF 20 mg/2ml Vial SLOW IVP SCH (09:00)
[2019-05-06] MEDS ORDERED: FLU VACC TS2019-20(65YR UP)/PF 180 MCG/0.5 ML SYRINGE IM ONE (09:00)
[2019-05-06] MEDS: Baclofen 10 MG TAB PO SCH ×2 (09:27→20:29)
[2019-05-06] MEDS: Gabapentin 400 MG CAP PO SCH ×2 (09:29→20:29)
[2019-05-06] MEDS: Magnesium Oxide 400 MG TAB PO SCH (09:35)
--- NOTE | 2019-05-06 10:18 | RAD ---
SINGLE VIEW OF THE CHEST AND 2 VIEWS OF THE ABDOMEN: COMPARISON: 05/05/2019. HISTORY: Nausea and vomiting. FINDINGS: A single view of the chest and supine and decubitus views of the abdomen show a nonspecific, nonobstr ucted bowel gas pattern. No free air or air fluid levels are seen on the decubitus film. No free ai r seen beneath the hemidiaphragms on the upright chest x-ray. Skin stephania are seen in the upper abd omen which may be from recent surgery. There appears to be a small right pleural effusion. There is no evidence of consolidation or mass. IMPRESSION: 1. No evidence of bowel obstruction. 2. Small right pleural effusion. POS: [facility]
[2019-05-06 10:36] LABS: Anion Gap 12 mmol/L (10-20); BUN (Urea Nitrogen) 10 mg/dL (8.4-25.7); Calc. Creatinine Clearance 112 mL/min (70-130); Calcium 8.4 mg/dL (7.8-10.44); Carbon Dioxide 24 mmol/L (23-31); Chloride 106 mmol/L (98-107); Estimated GFR-MDRD Greater than 90; Glucose 119 mg/dL (80-115); Potassium 3.8 mmol/L (3.5-5.1); Sodium 138 mmol/L (136-145)
[2019-05-06 10:42] LABS: Hemoglobin 10.1 g/dL (14.0-18.0); Mean Corpuscular HGB CONC 31.3 g/dL (32.0-36.0); Mean Corpuscular Hemoglobin 26.7 pg (27.0-31.0); Mean Corpuscular Volume 85.2 fL (78.0-98.0); Mean Platelet Volume 6.7 fL (7.4-10.4); Platelet Count 529 thou/uL (130-400); RBC Distribution Width 14.7 % (11.5-14.5); Red Blood Cell (RBC) Count 3.77 mill/uL (4.70-6.10); White Blood Cell (WBC) Count 5.8 thou/uL (4.8-10.8)
[2019-05-06 10:50] LABS: Eosinophils 2 % (0-10); Lymphocytes 22 % (21-51); MDiff Complete? YES; Monocytes 10 % (0-10); Neutrophil 66 % (42-75); Platelet Morphology Comment Appears Increased; Polychromasia SLIGHT = 2-3 cells (100X) (0-2/hpf)
--- NOTE | 2019-05-06 11:28 | CT ---
CT OF THE ABDOMEN AND PELVIS WITH CONTRAST: COMPARISON: 05/04/2019. HISTORY: Status post cholecystectomy with vomiting. TECHNIQUE: Multiple contiguous axial images were obtained in a CT of the abdomen and pelvis with contrast. Tatianna nal reformats were performed. FINDINGS: The patient is status post cholecystectomy. There are small stable fluid collections in the gallblad catherine bed and adjacent to the inferior aspect of the liver. No free air or free fluid is seen in the a bdomen or pelvis. No biliary dilatation is seen. A calcification in the liver is likely from prior granulomatous disea se. No other liver lesions are seen. A subcentimeter hypodensity in the right kidney likely represe nts a small cyst. The left kidney, adrenal glands, spleen, and pancreas are unremarkable. The remaining large and small bowel are unremarkable. Postsurgical changes are seen in the right col on. Atherosclerotic calcifications are seen in the aorta. No abdominal or pelvic lymphadenopathy are see n. There is a small stable right pleural effusion with adjacent atelectasis. IMPRESSION: 1. Stable postsurgical changes from cholecystectomy. 2. Stable right pleural effusion. POS: [facility]
--- NOTE | 2019-05-06 12:19 | RAD ---
ABDOMEN 1 VIEW: Date: 05/06/19 HISTORY: Nasogastric tube placement. FINDINGS/IMPRESSION: There is a nasogastric tube with tip in the projection of the distal stomach. There are postop change s in the abdomen. There is contrast in the urinary bladder, ureters, and the pelvicaliceal systems. POS: [facility]
--- NOTE | 2019-05-06 12:21 | RAD ---
PORTABLE CHEST 1 VIEW: Date: 05/06/19 Time: 1203 hours HISTORY: Nasogastric tube placement. FINDINGS/IMPRESSION: The heart size is normal. There is a right-sided pleural effusion. Nasogastric tube can be traced int o the stomach with tip excluded from the film. A left-sided vascular stent is present. No pneumothora karissa are identified. The left lung is clear. POS: [facility]
[2019-05-06] MEDS ORDERED: Iopamidol 370 76% 100 ML VIAL ONE (13:48)
[2019-05-06] MEDS: HumaLOG 300 UNITS/3 ML VIAL SC PRN (13:51)
[2019-05-06] MEDS: Ondansetron PF 4 MG/2 ML Vial IVP PRN ×2 (15:24→21:16)
[2019-05-06] MEDS: metroNIDAZOLE 500 MG in Premix Bag 1 BAG IVPB SCH (18:30)
[2019-05-06] MEDS: Saccharomyces boulardii 250 MG CAP PO SCH (20:29)
[2019-05-07] MEDS: metroNIDAZOLE 500 MG in Premix Bag 1 BAG IVPB SCH ×3 (00:18→17:24)
[2019-05-07 05:33] LABS: #Eosinphils 0.1 thou/uL (0.0-0.7); #Monocytes 0.6 thou/uL (0.11-0.59); #Neutrophils 2.9 thou/uL (1.40-6.50); %Basophils 0.5 % (0.0-1.0); %Eosinophils 3.2 % (0.0-10.0); %Lymphocytes 21.5 % (21.0-51.0); %Monocytes 12.4 % (0.0-10.0); %Neutrophils 62.4 % (42.0-75.0); Hemoglobin 8.7 g/dL (14.0-18.0); Mean Corpuscular HGB CONC 31.8 g/dL (32.0-36.0); Mean Corpuscular Hemoglobin 26.9 pg (27.0-31.0); Mean Corpuscular Volume 84.4 fL (78.0-98.0); Mean Platelet Volume 6.7 fL (7.4-10.4); Platelet Count 453 thou/uL (130-400); RBC Distribution Width 14.5 % (11.5-14.5); Red Blood Cell (RBC) Count 3.24 mill/uL (4.70-6.10); White Blood Cell (WBC) Count 4.6 thou/uL (4.8-10.8)
[2019-05-07] MEDS: Vancomycin HCl 25 MG/ML Oral PO SCH ×3 (05:38→17:24)
[2019-05-07 05:54] LABS: ALT (SGPT) 18 U/L (8-55); AST (SGOT) 19 U/L (5-34); Albumin 2.7 g/dL (3.4-4.8); Alkaline Phosphatase 59 U/L (40-110); Anion Gap 7 mmol/L (10-20); BUN (Urea Nitrogen) 5 mg/dL (8.4-25.7); Calc. Creatinine Clearance 116 mL/min (70-130); Calcium 7.8 mg/dL (7.8-10.44); Carbon Dioxide 24 mmol/L (23-31); Chloride 111 mmol/L (98-107); Estimated GFR-MDRD Greater than 90; Globulin 2.9 g/dL (2.4-3.5); Glucose 144 mg/dL (80-115); Magnesium 1.9 mg/dL (1.6-2.6); Potassium 4.1 mmol/L (3.5-5.1); Protein, Total 5.6 g/dL (5.8-8.1); Sodium 138 mmol/L (136-145)
[2019-05-07 06:04] LABS: Phosphorus 1.7 mg/dL (2.3-4.7)
--- NOTE | 2019-05-07 08:20 | CON ---
DATE OF CONSULTATION: HISTORY OF PRESENT ILLNESS: Montez Jones is a 69-year-old white male with hemiparesis, left from a stroke and a right arm weakness from cervical spine problems, recently underwent on 04/20/2019, laparoscopic cholecystectomy after ERCP and sphincterotomy. He had a cardiac stress test prior to this procedure that was unremarkable. Dr. Hoyt performed his ERCP. The patient had a central line for IV access. The patient did well postoperatively, but was re-admitted by hospitalist for nausea and vomiting. He had a CAT scan that showed perihepatic fluid. He had a HIDA scan that revealed absence of a bile leak. His liver function tests were normal. He was suspected to have gastroparesis. The patient had an upper GI noting reflux and delayed stomach emptying, but no evidence of bowel obstruction. Dr. Antoine performed an upper endoscopy. The patient was treated and sent home. The patient during that hospitalization had an EKG due to some upper abdominal discomfort. No changes of ischemia. Cardiology saw him, and no other intervention was noted. As noted above, he had had a negative cardiac stress test, nuclear medicine on 04/20/2019, with normal ejection fraction and no ischemia. EF was 59%. On 05/04/2019, the patient was admitted to [facility]. He had been having intractable vomiting for 2 days, had not had a bowel movement in several days. He had a CAT scan demonstrating some improvement in his pleural effusions, improvement in the perihepatic fluid, improvement in the subhepatic fluid collection, and no significant laboratory findings. His white count was normal. Hemoglobin 10. Liver function tests were normal except slight elevation of bilirubin to 1.6. The patient continued to have abdominal distention and was reported to have a fever and was transferred from [facility] last night to the Hospitalist Service. Overnight, he has remained afebrile. His heart rate is 69, respiratory rate 16, blood pressure 150/102. He has had intractable vomiting. Three-view abdomen reveals of changes suggestive of obstruction. He has an emesis basin at bedside. He has been refusing NG tube. ALLERGIES: 1. IBUPROFEN. 2. ASPIRIN. 3. FLUOXETINE. 4. MORPHINE. SOCIAL HISTORY: Tobacco, none. Alcohol, none. MEDICATIONS: 1. Cozaar 100 mg a day. 2. Furosemide 20 mg a day. 3. Aspirin 81 mg b.i.d. 4. Tylenol Extra Strength 1000 mg q.6 hours p.r.n. 5. Vancomycin 125 q.6 hours. 6. Potassium chloride 20 daily. 7. Protonix 40 mg a day. 8. Losartan 100 mg daily. 9. Gabapentin 400 mg b.i.d. 10. Baclofen 5 mg b.i.d. 11. Metformin 500 mg b.i.d. In the hospital, he was given Reglan IV and Thorazine p.r.n. PAST MEDICAL HISTORY: 1. Stroke with left hemiparesis. 2. Cervical spine problems with right upper arm weakness. 3. Diabetes mellitus, type 2. 4. Hypertension. 5. Coronary artery disease, followed by Dr. Calvillo. Normal cardiac stress test preoperatively last month. 6. EGD in 2011, Dr. South; duodenal biopsy is negative. 7. Right hemicolectomy in 2011, for adenocarcinoma. 8. On 11/19/2011, laparoscopic hand-assisted right colectomy. 9. On 11/26/2011, laparoscopy with irrigation and drainage for a leak. 10. On 11/30/2011, repeat operation with resection of terminal ileum and transverse colon with redo of his anastomosis. 11. Previous cervical spine surgery x2 in 2002 and 2005. 12. Previous appendectomy, right lower quadrant paramedian incision. 13. More recent laparoscopic converted to open cholecystectomy due to adhesions. Past medical history: Coronary artery disease, post myocardial infarction, followed by Dr. Calvillo; previous stroke; left hemiparesis; nonambulatory; previous spine surgery with right arm weakness. He lives with his family. Family helps him up in a chair when they can. PHYSICAL EXAMINATION: VITAL SIGNS: Temperature 98.1, heart rate 82, Blood pressure 150/102. LUNGS: Clear to auscultation. CARDIAC: Regular rate and rhythm without murmur or gallop. ABDOMEN: Distended. Tympanitic. Surgical wounds well healed. Lawrence remain in left upper quadrant, which I have asked them removed. EXTREMITIES: He had left hemiparesis, right upper arm weakness. LABORATORY DATA: Sodium 138, potassium 4.8, BUN 10, creatinine 0.79, GFR 89, bilirubin 1.6 this morning, previously normal recently. White count 5, hemoglobin 10. ASSESSMENT AND PLAN: 1. Gastric emptying problems. Consult GI. NG tube. Await GI input. Removal per GI's discretion. 2. Immobility due to a left hemiparesis from stroke, right arm paralysis from cervical spine problems and surgery. 3. Diabetes mellitus, on metformin. Job ID: [id number]
--- NOTE | 2019-05-07 08:31 | PRG ---
DATE OF SERVICE: 05/07/2019 SUBJECTIVE: Montez Jones is doing well today. He feels much better after having NG tube placed. He has not had any abdominal pain. He still feels occasional nausea. He had a bowel movement yesterday, but none after. The bowel was large. OBJECTIVE: VITAL SIGNS: Temperature 97.9 degrees, pulse 104, blood pressure 122/84. LUNGS: Clear to auscultation. CARDIAC: Regular rate and rhythm without murmur or gallop. ABDOMEN: Soft. Bowel sounds present. Well-healed surgical scar. Open cholecystectomy. Right subcostal incision. Yared removed from left upper quadrant. LABORATORY DATA: White count 4, hemoglobin 8.7. Basic metabolic profile normal. ASSESSMENT AND PLAN: Gastroparesis. Await Dr. Hagen' opinion. His NG tube output for 24 hours is 800 mL. We would leave that in as it is difficult to place and hold off on removal and await Dr. Hagen' opinion. At some point, NG tube could be removed. He can be placed on Reglan Elixir. The patient states the baclofen he takes really helps his spasms, although Dr. Hagen believes this may be contributing to his gastroparesis. This may have to be changed to something else or try without it. From a surgical standpoint, there appears to be no surgical problems as there is no evidence of infection and no evidence of postoperative biliary surgery complications. I will follow along with you. Job ID: [id number]
--- NOTE | 2019-05-07 08:40 | CON ---
DATE OF CONSULTATION: REASON FOR CONSULTATION: Abdominal distention, recent cholecystectomy. HISTORY OF PRESENT ILLNESS: Mr. Jones is a 69-year-old gentleman, who has been in this hospital twice recently with nausea and vomiting. The first time he came in was on 04/19. At that time, he complained of abdominal pain in the right lower abdomen, nausea, and vomiting. He had a CAT scan, that showed dilated common bile duct with distended gallbladder and gallstones. At that time, his bilirubin was 3.1, AST and ALT were 600 and 300 respectively, and alkaline phosphatase was 116. He had elevated lactic acid. He was treated with empiric antibiotics and had ERCP with removal of stones and biliary obstruction and then had a laparoscopic cholecystectomy. His LFTs ultimately decreased towards normal as is the rest of his liver enzymes. He was discharged home actually, re-presented to [facility] on 04/24 with intractable nausea and vomiting, some possible upper GI bleed that was observed, he had repeat endoscopy and CAT scan showing gallbladder fossa hemorrhage, felt to be related to recent cholecystectomy. He had no signs of bile leak with a HIDA scan. He was treated with some Reglan, hydrated, and observed and ultimately the patient moved to IMU as he became slightly unstable, but ultimately was discharged on 05/01. At that time, he was diagnosed with C difficile and was sent home with oral vancomycin as well. He returned to the emergency room again and was admitted at [place] on 05/01 for chest pain and some coffee-ground nausea. He is admitted for observation. He had another CAT scan, showed stable postsurgical changes from cholecystectomy, stable right pleural effusion. Notably, at this time, he was transferred back to this facility today. In reviewing the admission H and P, apparently he never filled his Vancocin prescription after being discharged on 04/30. Apparently, he became more distended. Plain films are unrevealing. He did not have a bowel movement several days. With worsening distention and history of C difficile, he was transferred here. Here, Dr. Rossi has seen him and placed an NG tube and was put on IV fluids. PAST MEDICAL HISTORY: 1. Hypertension. 2. Type 2 diabetes. 3. Coronary artery disease. 4. History of prior CVA with chronic right hemiparesis, wheelchair dependency and being bed-bound. 5. History of esophagitis on recent CAT scan. 6. History of previous acute cholecystitis and choledocholithiasis with ERCP and cholecystectomy recently. 7. Colorectal cancer. PAST SURGICAL HISTORY: 1. EGD with colonoscopy. 2. Subsequent right hemicolectomy with a 2nd operation required to redo the anastomosis, that was in 2011, secondary to adenocarcinoma. 3. Previous cervical spine surgery. 4. Appendectomy. 5. Cholecystectomy. 6. ERCP. MEDICATIONS AT HOME: 1. Amlodipine. 2. Protonix. 3. Potassium. 4. Lopressor. 5. Magnesium. 6. Senna. 7. Acetaminophen. 8. Metformin. 9. Losartan. 10. Gabapentin. 11. Lasix. 12. Baclofen. 13. Aspirin. ALLERGIES: IBUPROFEN AND FLUOXETINE. SOCIAL HISTORY: The patient lives in [place] with his family. REVIEW OF SYSTEMS: Negative for chest pain, shortness of breath, dysphagia, odynophagia, melena, hematochezia, or hematemesis. Feels a little better since NG tube was in place earlier today. He denies any dysuria, frequency, or urgency. PRESENT MEDICATIONS: 1. Tylenol. 2. Baclofen 5 mg b.i.d. 3. Bisacodyl 10. 4. Chlorpromazine for hiccups. 5. Clonidine 0.1 q.4 h. 6. Pepcid 20 mg IV q.12 h. 7. Neurontin 400 mg p.o. b.i.d. 8. Hydralazine. 9. Insulin sliding scale. 10. Magnesium oxide. 11. Reglan 10 IV q.4 p.r.n. 12. Zofran p.r.n. 13. D5 normal saline . 14. Vancomycin 125 q.6. SOCIAL HISTORY: No alcohol, drugs, or tobacco. FAMILY HISTORY: Noncontributory. REVIEW OF SYSTEMS: As above. PHYSICAL EXAMINATION: VITAL SIGNS: Temperature 97.4, pulse 82, blood pressure is 147/82. GENERAL: He is resting in bed. He is in no distress. He is pleasant, awake, alert, and oriented. LUNGS: Clear. HEART: Regular without murmurs. ABDOMEN: Slightly protuberant. There is a well-healed scar in the right upper quadrant from open cholecystectomy. He has no real bowel sounds. He has no rebound or guarding. He has slight abdominal wall edema. RECTAL: No impaction or masses. EXTREMITIES: No clubbing, cyanosis, or edema. LABORATORY STUDIES: Sodium 138, potassium 3.8, chloride 106, bicarb 24, BUN and creatinine are 10 and 0.7. Liver function tests noted bilirubin of 1.6, AST ALT of 23 and 23, alkaline phosphatase 71, albumin 3.2, magnesium was 1.9 on 04/30. IMAGING STUDIES: The x-rays from today were reviewed along with the last CAT scan. There is no overt toxic megacolon. X-ray shows no overt effusions. Another x-ray shows good placement of the NG tube. ASSESSMENT: 1. Ileus, likely related to Clostridium difficile, baclofen, immobility, and generalized illness. I agree with NG tube. His vomiting seems to have been stopped. He has no overt evidence of toxic megacolon on CT from admission on 05/06. 2. Nausea, vomiting, colitis, probably gastroparesis. He has had a delayed gastric emptying study on previous admission, although upper GI small-bowel follow-through showed an outlet obstruction. He had a previous ERCP with no obstruction and CAT scan shows no evidence of bowel obstruction. He does have signs of esophagitis on his CT with thickened distal esophagus. Esophagus was found to be normal at the time of the ERCP. 3. Status post laparoscopic cholecystectomy with small hematoma, resolving on most recent CT. LFTs improved. RECOMMENDATIONS: 1. IV fluids, potassium replacement. Monitor magnesium and phosphorus as well. 2. We would add Flagyl to the patient's antibiotic regimen apparently when he was diagnosed with the C difficile. He was started on medicine, but on discharge did not get medicine, was untreated for several days before readmission. 3. I would place him on a PPI instead of an H2 receptor as he has some esophagitis on CT distally, most likely this is reflux related from repetitive belching. 4. If need be, he can be started on some Reglan. We would follow with serial films. No need for decompression tube at this point in time as there is no overt colonic distention. Job ID: [id number]
--- NOTE | 2019-05-07 09:11 | RAD ---
Supine and decubitus radiographs of the abdomen: 05/07/2019 HISTORY: Ileus, C. difficile FINDINGS: Decubitus imaging with the right side up demonstrates no evidence for free intraperitoneal air. There is a paucity of bowel gas limiting detailed assessment. A nasogastric tube extends into the upper abdomen, distal tip within the right upper quadrant. Cholecystectomy clips are present. The re is a suture line within the right lower quadrant. There is vascular calcification and stent material overlying the pelvis. IMPRESSION: No free intraperitoneal air. Paucity of bowel gas limits detailed assessment of the bowel gas pattern. No gas-filled dilated bowel seen.
[2019-05-07] MEDS: Baclofen 10 MG TAB PO SCH ×2 (10:17→21:03)
[2019-05-07] MEDS: Gabapentin 400 MG CAP PO SCH ×2 (10:17→21:02)
[2019-05-07] MEDS: Magnesium Oxide 400 MG TAB PO SCH (10:17)
[2019-05-07] MEDS: Pantoprazole 40 MG VIAL IVP SCH (10:18)
[2019-05-07] MEDS: D5 NS w/ 40 mEq KCl 1,000 ML IV SCH ×2 (10:18→17:24)
[2019-05-07] MEDS ORDERED: Potassium Phosphate 30 MMOL in Sodium Chloride 0.9% 500 ML IVPB SCH (18:15)
[2019-05-07] MEDS: Saccharomyces boulardii 250 MG CAP PO SCH (21:04)
[2019-05-07] MEDS: Metoclopramide HCl 10 MG/2 ML VIAL IVP SCH (21:04)
[2019-05-08] MEDS: Metoclopramide HCl 10 MG/2 ML VIAL IVP SCH ×3 (00:05→09:35)
[2019-05-08] MEDS: Vancomycin HCl 25 MG/ML Oral PO SCH ×4 (00:06→20:59)
[2019-05-08] MEDS: metroNIDAZOLE 500 MG in Premix Bag 1 BAG IVPB SCH ×3 (00:50→17:58)
[2019-05-08 05:44] LABS: Anion Gap 11 mmol/L (10-20); BUN (Urea Nitrogen) 4 mg/dL (8.4-25.7); Calc. Creatinine Clearance 125 mL/min (70-130); Calcium 8.4 mg/dL (7.8-10.44); Carbon Dioxide 21 mmol/L (23-31); Chloride 108 mmol/L (98-107); Estimated GFR-MDRD Greater than 90; Glucose 106 mg/dL (80-115); Magnesium 1.8 mg/dL (1.6-2.6); Phosphorus 3.8 mg/dL (2.3-4.7); Potassium 4.3 mmol/L (3.5-5.1); Sodium 136 mmol/L (136-145)
--- NOTE | 2019-05-08 05:47 | PDOC.HOSPP ---
- Subjective Encounter Date: 05/06/19 Encounter Time: 13:00 Subjective: pt had his ng tube placed and had a large bm - Objective Vital Signs & Weight: Vital Signs (12 hours) Temp Pulse Resp BP Pulse Ox 05/08/19 03:43 97.7 F 86 16 151/90 H 96 05/08/19 00:00 97.9 F 82 18 148/85 H 96 05/07/19 19:28 97.3 F L 86 18 155/92 H 98 Weight Admit Weight 178 lb 8 oz Weight 178 lb 8 oz I&O: 05/06/19 05/07/19 05/08/19 06:59 06:59 06:59 Intake Total 405 2500 1230 Output Total 280 1550 1825 Balance 125 950 -595 Result Diagrams: 05/07/19 04:36 05/08/19 04:39 Additional Labs: Accuchecks 05/08/19 05/07/19 05/07/19 00:43 18:08 12:02 POC Glucose 105 120 H 153 H 05/07/19 05:41 POC Glucose 162 H Hospitalist ROS - Review of Systems Respiratory: denies: cough, dry, shortness of breath, hemoptysis, SOB with excertion, pleuritic pain, sputum, wheezing, other Cardiovascular: denies: chest pain, palpitations, orthopnea, paroxysmal noc. dyspnea, edema, light headedness, other Gastrointestinal: denies: nausea, vomiting, abdominal pain, diarrhea, constipation, melena, hematochezia, other - Medication Medications: Active Medications Generic Name Dose Route Start Last Admin Trade Name Freq PRN Reason Stop Dose Admin Baclofen 5 mg 05/06/19 09:00 05/07/19 21:03 Lioresal PO 5 mg BID TIKA Administration Bisacodyl 10 mg 05/06/19 02:36 05/06/19 06:06 Dulcolax [place] 10 mg DAILYPRN PRN Administration Constipation Gabapentin 400 mg 05/06/19 09:00 05/07/19 21:02 Neurontin PO 400 mg BID TIKA Administration Potassium Chloride/Dextrose/Sod Cl 1,000 mls @ 100 mls/hr 05/06/19 03:15 17:24 D5 Ns W/ 40 Meq Kcl IV 1,000 mls .Q10H TIKA Administration Chlorpromazine HCl 25 mg/ 51 mls @ 102 mls/hr 05/06/19 02:56 05/06/19 22:06 Sodium Chloride IVPB 51 mls Q6H PRN Administration Hiccups Metronidazole 500 mg/ Device 100 mls @ 100 mls/hr 05/06/19 17:00 05/08/19 00: 50 IVPB 100 mls 0100,0900,1700 TIKA Administration Insulin Human Lispro 0 units 05/06/19 02:36 05/06/19 13:51 Humalog SC 2 unit .MILD SLIDING SCALE PRN Administration Mild Correctional Scale Magnesium Oxide 400 mg 05/06/19 09:00 05/07/19 10:17 Magnesium Oxide PO 400 mg DAILY TIKA Administration Metoclopramide HCl 10 mg 05/07/19 21:00 05/08/19 00:05 Reglan IVP 10 mg Q4HR TIKA Administration Ondansetron HCl 4 mg 05/06/19 02:36 05/06/19 21:16 Zofran IVP 4 mg Q6H PRN Administration Nausea/Vomiting Pantoprazole Sodium 40 mg 05/07/19 09:00 05/07/19 10:18 Protonix IVP 40 mg DAILY TIKA Administration Saccharomyces Boulardii 250 mg 05/06/19 21:00 05/07/19 21:04 Florastor PO 250 mg HS TIKA Administration Vancomycin HCl 250 mg 05/06/19 18:00 05/08/19 00:06 First Vancomycin PO 250 mg Q6HR TIKA Administration - Exam Heart: negative: RRR, no murmur, no gallops, no rubs, normal peripheral pulses, irregular, diminshed peripheral pulses, murmur present, II/IV, III/IV Gastrointestinal: soft, normal bowel sounds Gastrointestinal - other findings: mid abd incision Neurological - other findings: he has his left upper ext contracted Hosp A/P (1) Nausea & vomiting Code(s): R11.2 - NAUSEA WITH VOMITING, UNSPECIFIED Status: Acute (2) Diabetes mellitus type 2 in nonobese Code(s): E11.9 - TYPE 2 DIABETES MELLITUS WITHOUT COMPLICATIONS Status: Chronic (3) History of cholecystectomy Code(s): Z90.49 - ACQUIRED ABSENCE OF OTHER SPECIFIED PARTS OF DIGESTIVE TRACT Status: Chronic (4) Hypertension Code(s): I10 - ESSENTIAL (PRIMARY) HYPERTENSION Status: Chronic - Plan will continue oral vanco. pt has had one large bm today. Ng tube inserted. pt has no abd pain.
--- NOTE | 2019-05-08 05:50 | PDOC.HOSPP ---
- Subjective Encounter Date: 05/07/19 Encounter Time: 18:00 Subjective: pt up in bed no complains of abd pain or n/v - Objective Vital Signs & Weight: Vital Signs (12 hours) Temp Pulse Resp BP Pulse Ox 05/08/19 03:43 97.7 F 86 16 151/90 H 96 05/08/19 00:00 97.9 F 82 18 148/85 H 96 05/07/19 19:28 97.3 F L 86 18 155/92 H 98 Weight Admit Weight 178 lb 8 oz Weight 178 lb 8 oz I&O: 05/06/19 05/07/19 05/08/19 06:59 06:59 06:59 Intake Total 405 2500 1230 Output Total 280 1550 1825 Balance 125 950 -595 Result Diagrams: 05/07/19 04:36 05/08/19 04:39 Additional Labs: Accuchecks 05/08/19 05/07/19 05/07/19 00:43 18:08 12:02 POC Glucose 105 120 H 153 H 05/07/19 05:41 POC Glucose 162 H Hospitalist ROS - Review of Systems Cardiovascular: denies: chest pain, palpitations, orthopnea, paroxysmal noc. dyspnea, edema, light headedness, other Gastrointestinal: denies: nausea, vomiting, abdominal pain, diarrhea, constipation, melena, hematochezia, other Genitourinary: denies: dysuria, frequency, incontinence, hematuria, retention, other - Medication Medications: Active Medications Generic Name Dose Route Start Last Admin Trade Name Freq PRN Reason Stop Dose Admin Baclofen 5 mg 05/06/19 09:00 05/07/19 21:03 Lioresal PO 5 mg BID TIKA Administration Bisacodyl 10 mg 05/06/19 02:36 05/06/19 06:06 Dulcolax [place] 10 mg DAILYPRN PRN Administration Constipation Gabapentin 400 mg 05/06/19 09:00 05/07/19 21:02 Neurontin PO 400 mg BID TIKA Administration Potassium Chloride/Dextrose/Sod Cl 1,000 mls @ 100 mls/hr 05/06/19 03:15 17:24 D5 Ns W/ 40 Meq Kcl IV 1,000 mls .Q10H TIKA Administration Chlorpromazine HCl 25 mg/ 51 mls @ 102 mls/hr 05/06/19 02:56 05/06/19 22:06 Sodium Chloride IVPB 51 mls Q6H PRN Administration Hiccups Metronidazole 500 mg/ Device 100 mls @ 100 mls/hr 05/06/19 17:00 05/08/19 00: 50 IVPB 100 mls 0100,0900,1700 TIKA Administration Insulin Human Lispro 0 units 05/06/19 02:36 05/06/19 13:51 Humalog SC 2 unit .MILD SLIDING SCALE PRN Administration Mild Correctional Scale Magnesium Oxide 400 mg 05/06/19 09:00 05/07/19 10:17 Magnesium Oxide PO 400 mg DAILY TIKA Administration Metoclopramide HCl 10 mg 05/07/19 21:00 05/08/19 00:05 Reglan IVP 10 mg Q4HR TIKA Administration Ondansetron HCl 4 mg 05/06/19 02:36 05/06/19 21:16 Zofran IVP 4 mg Q6H PRN Administration Nausea/Vomiting Pantoprazole Sodium 40 mg 05/07/19 09:00 05/07/19 10:18 Protonix IVP 40 mg DAILY TIKA Administration Saccharomyces Boulardii 250 mg 05/06/19 21:00 05/07/19 21:04 Florastor PO 250 mg HS TIKA Administration Vancomycin HCl 250 mg 05/06/19 18:00 05/08/19 00:06 First Vancomycin PO 250 mg Q6HR TIKA Administration - Exam Heart: negative: RRR, no murmur, no gallops, no rubs, normal peripheral pulses, irregular, diminshed peripheral pulses, murmur present, II/IV, III/IV Respiratory: negative: CTAB, no wheezes, no rales, no ronchi, normal chest expansion, no tachypnea, normal percussion, rales, rhonchi, tachypneic, wheezes Gastrointestinal: negative: soft, non-tender, non-distended, normal bowel sounds , no palpable masses, no hepatomegaly, no splenomegaly, no bruit, no guarding, no rigidity, tender to palpation, distended, diminished bowl sounds, voluntary guarding Hosp A/P (1) Nausea & vomiting Code(s): R11.2 - NAUSEA WITH VOMITING, UNSPECIFIED Status: Acute (2) Diabetes mellitus type 2 in nonobese Code(s): E11.9 - TYPE 2 DIABETES MELLITUS WITHOUT COMPLICATIONS Status: Chronic (3) History of cholecystectomy Code(s): Z90.49 - ACQUIRED ABSENCE OF OTHER SPECIFIED PARTS OF DIGESTIVE TRACT Status: Chronic (4) Hypertension Code(s): I10 - ESSENTIAL (PRIMARY) HYPERTENSION Status: Chronic (5) Ileus Code(s): K56.7 - ILEUS, UNSPECIFIED Status: Acute (6) Esophagitis Code(s): K20.9 - ESOPHAGITIS, UNSPECIFIED Status: Acute - Plan will continue oral vanco. pt has had one large bm today. Ng tube inserted. pt has no abd pain. 05/08 will replace electrolytes, pt has not had any bm. per surgery's notes his ileus has resolved. will monitor. pt on ppi for esophagitis.
[2019-05-08] MEDS ORDERED: Polyethylene Glycol 3350 17 GM Packet PO PRN (05:56)
[2019-05-08] MEDS: D5 NS w/ 40 mEq KCl 1,000 ML IV SCH (05:59)
--- NOTE | 2019-05-08 08:51 | PRG ---
DATE OF SERVICE: 05/07/2019 SUBJECTIVE: Mr. Jones has had no bowel movements. He states he is not passing gas. He states he has had minimal output through his NG tube. His NG tube was clamped. He has had no vomiting. OBJECTIVE: VITAL SIGNS: Blood pressure is 159/93 with a pulse of 77, temperature 97.6, respirations 16. NG tube slowly put out 800 mL early this morning, but this also includes what was suctioned per radiology. GENERAL: He is resting in bed. He is in no distress. LUNGS: Clear. HEART: Regular rate and rhythm. ABDOMEN: Soft and nontender. There are no bowel sounds. EXTREMITIES: No clubbing, cyanosis, or edema. He has NG tube in place. IMAGING STUDIES: X-rays, plain films showed no overt free air or air-fluid levels. These are limited by the fact that he cannot stand. He has decubitus films and flat films. LABORATORY DATA: White count 4.6, hemoglobin 9.7, and platelet count 453. BUN and creatinine are 5 and 0.8. Liver function tests are normal. Phosphorus is 1.7, has been replaced. ASSESSMENT: 1. Clostridium difficile colitis, mild. No evidence of toxic megacolon. 2. Nausea and vomiting, probably related to poor gastric motility. NG tube is at 800 mL, however, I think that a lot of this was suctioned and other areas before PEG tube put in. I have talked to the patient. He thinks he can get without much problem and we are going ahead and stopping that, put him on a little bit of Reglan. We will follow along with you. Job ID: [id number]
[2019-05-08] MEDS: Amlodipine 10 MG TAB PO SCH (09:34)
[2019-05-08] MEDS: Magnesium Oxide 400 MG TAB PO SCH (09:35)
[2019-05-08] MEDS: Gabapentin 400 MG CAP PO SCH ×2 (09:35→20:54)
[2019-05-08] MEDS: Baclofen 10 MG TAB PO SCH ×2 (09:36→20:55)
[2019-05-08] MEDS: Isosorbide Mononitrate (ER) 30 MG TAB PO SCH (09:36)
[2019-05-08] MEDS: Pantoprazole 40 MG VIAL IVP SCH (09:38)
[2019-05-08] MEDS: Lactated Ringer's 1,000 ML IV SCH ×2 (11:34→21:10)
--- NOTE | 2019-05-08 11:57 | PRG ---
DATE OF SERVICE: 05/08/2019 SUBJECTIVE: Montez Jones is doing well today. He is in IMCU. OBJECTIVE: VITAL SIGNS: Temperature 97.8, pulse 91, and blood pressure 154/89. NG tube output in the last 24 hours is 400 and appears more liquid, nonbilious. He had a bowel movement earlier yesterday, he has passed flatus. Surgical wound looks good. LUNGS: Clear to auscultation. CARDIAC: Regular rate and rhythm without murmur or gallop. ABDOMEN: Soft. Bowel sounds present. Passed flatus. ASSESSMENT AND PLAN: Gastroparesis. We would plan to remove his NG tube today. Change his Reglan IV to p.o. elixir. Further management, treatment per Gastroenterology. Job ID: [id number]
[2019-05-08] MEDS: Metoclopramide 10 MG/10 ML UDCUP PO SCH ×3 (13:28→21:25)
--- NOTE | 2019-05-08 17:12 | PDOC.HOSPP ---
- Subjective Encounter Date: 05/08/19 Encounter Time: 10:30 Subjective: pt up in bed no complains - Objective Vital Signs & Weight: Vital Signs (12 hours) Temp Pulse Resp BP Pulse Ox 05/08/19 15:14 97.7 F 90 20 90/57 L 97 05/08/19 11:57 98.0 F 100 18 115/76 99 05/08/19 08:00 97.8 F 91 20 154/89 H 95 Weight Admit Weight 178 lb 8 oz Weight 178 lb 8 oz I&O: 05/07/19 05/08/19 05/09/19 06:59 06:59 06:59 Intake Total 2500 1230 Output Total 1556 6231 275 Balance 075 -305 -793 Result Diagrams: 05/07/19 04:36 05/08/19 04:39 Additional Labs: Accuchecks 05/08/19 05/08/19 05/08/19 12:35 04:59 00:43 POC Glucose 120 H 112 H 105 05/07/19 18:08 POC Glucose 120 H Hospitalist ROS - Review of Systems ENT: denies: ear pain, ear discharge, nose pain, nose discharge, nose congestion , mouth pain, mouth swelling, throat pain, throat swelling, other Respiratory: denies: cough, dry, shortness of breath, hemoptysis, SOB with excertion, pleuritic pain, sputum, wheezing, other Cardiovascular: denies: chest pain, palpitations, orthopnea, paroxysmal noc. dyspnea, edema, light headedness, other - Medication Medications: Active Medications Generic Name Dose Route Start Last Admin Trade Name Freq PRN Reason Stop Dose Admin Amlodipine Besylate 10 mg 05/08/19 09:00 05/08/19 09:34 Norvasc PO 10 mg DAILY TIKA Administration Baclofen 5 mg 05/06/19 09:00 05/08/19 09:36 Lioresal PO 5 mg BID TIKA Administration Bisacodyl 10 mg 05/06/19 02:36 05/06/19 06:06 Dulcolax [place] 10 mg DAILYPRN PRN Administration Constipation Gabapentin 400 mg 05/06/19 09:00 05/08/19 09:35 Neurontin PO 400 mg BID TIKA Administration Chlorpromazine HCl 25 mg/ 51 mls @ 102 mls/hr 05/06/19 02:56 05/06/19 22:06 Sodium Chloride IVPB 51 mls Q6H PRN Administration Hiccups Metronidazole 500 mg/ Device 100 mls @ 100 mls/hr 05/06/19 17:00 05/08/19 09: 38 IVPB 100 mls 0100,0900,1700 TIKA Administration Lactated Ringer's 1,000 mls @ 75 mls/hr 05/08/19 08:15 05/08/19 11:34 Lactated Ringer's IV 1,000 mls .[id number] TIKA Administration Insulin Human Lispro 0 units 05/06/19 02:36 05/06/19 13:51 Humalog SC 2 unit .MILD SLIDING SCALE PRN Administration Mild Correctional Scale Isosorbide Mononitrate 30 mg 05/08/19 09:00 05/08/19 09:36 Imdur Er PO 30 mg DAILY TIKA Administration Magnesium Oxide 400 mg 05/06/19 09:00 05/08/19 09:35 Magnesium Oxide PO 400 mg DAILY TIKA Administration Metoclopramide HCl 10 mg 05/08/19 11:30 05/08/19 13:28 Reglan PO 10 mg ACHS TIKA Administration Ondansetron HCl 4 mg 05/06/19 02:36 05/06/19 21:16 Zofran IVP 4 mg Q6H PRN Administration Nausea/Vomiting Pantoprazole Sodium 40 mg 05/07/19 09:00 05/08/19 09:38 Protonix IVP 40 mg DAILY TIKA Administration Saccharomyces Boulardii 250 mg 05/06/19 21:00 05/07/19 21:04 Florastor PO 250 mg HS TIKA Administration - Exam ENT: negative: normocephalic atraumatic, no oropharyngeal lesions, moist mucosa , dry oral mucosa Neck: negative: supple, symmetric, no JVD, no thyromegaly, no lymphadenopathy, no carotid bruit, JVD Heart: negative: RRR, no murmur, no gallops, no rubs, normal peripheral pulses, irregular, diminshed peripheral pulses, murmur present, II/IV, III/IV Hosp A/P (1) Nausea & vomiting Code(s): R11.2 - NAUSEA WITH VOMITING, UNSPECIFIED Status: Acute (2) Diabetes mellitus type 2 in nonobese Code(s): E11.9 - TYPE 2 DIABETES MELLITUS WITHOUT COMPLICATIONS Status: Chronic (3) History of cholecystectomy Code(s): Z90.49 - ACQUIRED ABSENCE OF OTHER SPECIFIED PARTS OF DIGESTIVE TRACT Status: Chronic (4) Hypertension Code(s): I10 - ESSENTIAL (PRIMARY) HYPERTENSION Status: Chronic (5) Ileus Code(s): K56.7 - ILEUS, UNSPECIFIED Status: Acute (6) Esophagitis Code(s): K20.9 - ESOPHAGITIS, UNSPECIFIED Status: Acute - Plan will continue oral vanco. pt has had one large bm today. Ng tube inserted. pt has no abd pain. 05/08 will replace electrolytes, pt has not had any bm. per surgery's notes his ileus has resolved. will monitor. pt on ppi for esophagitis. 05/09 will add PT/OT to see pt. will continue iv abx and oral abx for now. Ng tube out. will need snf
[2019-05-08] MEDS: Saccharomyces boulardii 250 MG CAP PO SCH (21:00)
--- NOTE | 2019-05-08 21:12 | PRG ---
DATE OF SERVICE: 05/08/2019 SUBJECTIVE: Mr. Jones feels better today. He is tolerating a solid diet well. He had only one bowel movement today. He has had no abdominal pain and feels like he is less distended. OBJECTIVE: VITAL SIGNS: Temperature is 97.5, pulse 96, blood pressure 111/59. GENERAL: He is in no acute distress. Alert and oriented x3. LUNGS: Clear to auscultation bilaterally. HEART: Regular rate and rhythm without murmur. ABDOMEN: Nontender. Bowel sounds are present. EXTREMITIES: No lower extremity edema. IMPRESSION: 1. Clostridium difficile colitis, improving with oral vancomycin and IV metronidazole. He should complete a 10-day course of the metronidazole and complete a 14-day course of the vancomycin, which can be tapered back to 125 mg p.o. four times daily after discharge. 2. Ileus appears to be resolved. 3. Likely gastric dysmotility. He seems to be doing better with Reglan. This could be reduced in the future to 5 mg before meals 3 times daily in the future. For now, we would continue the current dosing as well while he is here in the hospital. RECOMMENDATIONS: 1. Complete the courses of vancomycin and metronidazole as stated above. 2. We can try to taper his metoclopramide down in a week or 2. 3. He is doing better and it is anticipated that he will be transitioned to nursing care prior to home. 4. I will sign off for now. Please call Dr. Michelle if needed over the weekend. Job ID: [id number]
[2019-05-09] MEDS: metroNIDAZOLE 500 MG in Premix Bag 1 BAG IVPB SCH ×3 (01:00→17:47)
[2019-05-09] MEDS: Lactated Ringer's 1,000 ML IV SCH ×2 (02:57→23:31)
[2019-05-09] MEDS: Vancomycin HCl 25 MG/ML Oral PO SCH ×4 (02:58→21:49)
[2019-05-09] MEDS: Baclofen 10 MG TAB PO SCH ×2 (08:13→21:47)
[2019-05-09] MEDS: Amlodipine 10 MG TAB PO SCH (08:13)
[2019-05-09] MEDS: Metoclopramide 10 MG/10 ML UDCUP PO SCH ×4 (08:13→21:48)
[2019-05-09] MEDS: Isosorbide Mononitrate (ER) 30 MG TAB PO SCH (08:13)
[2019-05-09] MEDS: Gabapentin 400 MG CAP PO SCH ×2 (08:13→21:47)
[2019-05-09] MEDS: Magnesium Oxide 400 MG TAB PO SCH (08:14)
[2019-05-09] MEDS: Pantoprazole 40 MG VIAL IVP SCH (08:14)
[2019-05-09] MEDS: HumaLOG 300 UNITS/3 ML VIAL SC PRN (11:17)
--- NOTE | 2019-05-09 14:18 | PDOC.HOSPP ---
- Subjective Encounter Date: 05/09/19 Encounter Time: 10:30 Subjective: pt up in bed working with PT - Objective Vital Signs & Weight: Vital Signs (12 hours) Temp Pulse Resp BP Pulse Ox 05/09/19 11:03 97.9 F 99 18 111/69 93 L 05/09/19 08:15 98.5 F 88 16 147/80 H 95 05/09/19 08:00 98.5 F 88 16 147/80 H 95 Weight Admit Weight 178 lb 8 oz Weight 178 lb 8 oz I&O: 05/08/19 05/09/19 05/10/19 06:59 06:59 06:59 Intake Total 1230 1240 Output Total 2125 475 Balance -895 765 Result Diagrams: 05/07/19 04:36 05/08/19 04:39 Additional Labs: Accuchecks 05/09/19 05/08/19 06:35 17:45 POC Glucose 114 H 121 H Hospitalist ROS - Review of Systems Cardiovascular: denies: chest pain, palpitations, orthopnea, paroxysmal noc. dyspnea, edema, light headedness, other Gastrointestinal: denies: nausea, vomiting, abdominal pain, diarrhea, constipation, melena, hematochezia, other Genitourinary: denies: dysuria, frequency, incontinence, hematuria, retention, other - Medication Medications: Active Medications Generic Name Dose Route Start Last Admin Trade Name Freq PRN Reason Stop Dose Admin Amlodipine Besylate 10 mg 05/08/19 09:00 05/09/19 08:13 Norvasc PO 10 mg DAILY TIKA Administration Baclofen 5 mg 05/06/19 09:00 05/09/19 08:13 Lioresal PO 5 mg BID TIKA Administration Bisacodyl 10 mg 05/06/19 02:36 05/06/19 06:06 Dulcolax [place] 10 mg DAILYPRN PRN Administration Constipation Gabapentin 400 mg 05/06/19 09:00 05/09/19 08:13 Neurontin PO 400 mg BID TIKA Administration Chlorpromazine HCl 25 mg/ 51 mls @ 102 mls/hr 05/06/19 02:56 05/06/19 22:06 Sodium Chloride IVPB 51 mls Q6H PRN Administration Hiccups Metronidazole 500 mg/ Device 100 mls @ 100 mls/hr 05/06/19 17:00 05/09/19 08: 14 IVPB 100 mls 0100,0900,1700 TIKA Administration Lactated Ringer's 1,000 mls @ 75 mls/hr 05/08/19 08:15 05/09/19 02:57 Lactated Ringer's IV 1,000 mls .[id number] TIKA Administration Insulin Human Lispro 0 units 05/06/19 02:36 05/09/19 11:17 Humalog SC 2 unit .MILD SLIDING SCALE PRN Administration Mild Correctional Scale Isosorbide Mononitrate 30 mg 05/08/19 09:00 05/09/19 08:13 Imdur Er PO 30 mg DAILY TIKA Administration Magnesium Oxide 400 mg 05/06/19 09:00 05/09/19 08:14 Magnesium Oxide PO 400 mg DAILY TIKA Administration Metoclopramide HCl 10 mg 05/08/19 11:30 05/09/19 11:02 Reglan PO 10 mg ACHS TIKA Administration Ondansetron HCl 4 mg 05/06/19 02:36 05/06/19 21:16 Zofran IVP 4 mg Q6H PRN Administration Nausea/Vomiting Pantoprazole Sodium 40 mg 05/07/19 09:00 05/09/19 08:14 Protonix IVP 40 mg DAILY TIKA Administration Saccharomyces Boulardii 250 mg 05/06/19 21:00 05/08/19 21:00 Florastor PO 250 mg HS TIKA Administration Vancomycin HCl 250 mg 05/08/19 21:00 05/09/19 08:15 First Vancomycin PO 250 mg 0300,0900,1500,2100 TIKA Administration - Exam Heart: negative: RRR, no murmur, no gallops, no rubs, normal peripheral pulses, irregular, diminshed peripheral pulses, murmur present, II/IV, III/IV Respiratory: negative: CTAB, no wheezes, no rales, no ronchi, normal chest expansion, no tachypnea, normal percussion, rales, rhonchi, tachypneic, wheezes Gastrointestinal: negative: soft, non-tender, non-distended, normal bowel sounds , no palpable masses, no hepatomegaly, no splenomegaly, no bruit, no guarding, no rigidity, tender to palpation, distended, diminished bowl sounds, voluntary guarding Extremities: negative: no cyanosis, no clubbing, no edema, 1+ LE edema, 2+ LE edema, clubbing Hosp A/P (1) Nausea & vomiting Code(s): R11.2 - NAUSEA WITH VOMITING, UNSPECIFIED Status: Acute (2) Diabetes mellitus type 2 in nonobese Code(s): E11.9 - TYPE 2 DIABETES MELLITUS WITHOUT COMPLICATIONS Status: Chronic (3) History of cholecystectomy Code(s): Z90.49 - ACQUIRED ABSENCE OF OTHER SPECIFIED PARTS OF DIGESTIVE TRACT Status: Chronic (4) Hypertension Code(s): I10 - ESSENTIAL (PRIMARY) HYPERTENSION Status: Chronic (5) Ileus Code(s): K56.7 - ILEUS, UNSPECIFIED Status: Acute (6) Esophagitis Code(s): K20.9 - ESOPHAGITIS, UNSPECIFIED Status: Acute - Plan will continue oral vanco. pt has had one large bm today. Ng tube inserted. pt has no abd pain. 05/08 will replace electrolytes, pt has not had any bm. per surgery's notes his ileus has resolved. will monitor. pt on ppi for esophagitis. 05/09 will add PT/OT to see pt. will continue iv abx and oral abx for now. Ng tube out. will need snf 05/10 will continue current abx, pt up in PT
--- NOTE | 2019-05-09 19:03 | PRG ---
DATE OF SERVICE: 05/09/2019 SUBJECTIVE: Montez Jones is doing well today. He is tolerating his diet. He is passing flatus. He has not had any more emesis. He is on Reglan before meals and at bedtime. OBJECTIVE: ABDOMEN: Soft and nontender. EXTREMITIES: Unremarkable. LUNGS: Clear to auscultation. ASSESSMENT AND PLAN: 1. Gastroparesis. Dietary feedings. Recommendations per GI. 2. Status post cholecystectomy. No evidence of complications. At this point, I will see as needed. Please call if necessary. Job ID: [id number]
[2019-05-09] MEDS: Saccharomyces boulardii 250 MG CAP PO SCH (21:47)
[2019-05-10] MEDS: metroNIDAZOLE 500 MG in Premix Bag 1 BAG IVPB SCH ×3 (00:25→17:17)
[2019-05-10] MEDS: Vancomycin HCl 25 MG/ML Oral PO SCH ×4 (01:39→21:35)
[2019-05-10] MEDS: Metoclopramide 10 MG/10 ML UDCUP PO SCH ×4 (08:17→21:35)
[2019-05-10] MEDS: Baclofen 10 MG TAB PO SCH ×2 (08:18→21:35)
[2019-05-10] MEDS: Isosorbide Mononitrate (ER) 30 MG TAB PO SCH (08:18)
[2019-05-10] MEDS: Magnesium Oxide 400 MG TAB PO SCH (08:19)
[2019-05-10] MEDS: Gabapentin 400 MG CAP PO SCH ×2 (08:19→21:36)
[2019-05-10] MEDS: Acetaminophen 500 MG TAB PO PRN (08:19)
[2019-05-10] MEDS: Docusate 100 MG CAP PO SCH ×2 (08:20→21:35)
[2019-05-10] MEDS: Amlodipine 10 MG TAB PO SCH (08:20)
[2019-05-10] MEDS ORDERED: Sodium Chloride 0.9% 1,000 ML IV SCH (09:30)
[2019-05-10] MEDS ORDERED: Calcium Acetate 667 MG CAP ONE (09:46)
[2019-05-10] MEDS: chlorproMAZINE HCl 25 MG TAB PO SCH ×3 (11:13→23:07)
[2019-05-10] MEDS: HumaLOG 300 UNITS/3 ML VIAL SC PRN (15:41)
--- NOTE | 2019-05-10 17:48 | PDOC.HOSPP ---
- Subjective Encounter Date: 05/10/19 Encounter Time: 10:15 Subjective: pt up in chair feels dizzy, low bp noted - Objective Vital Signs & Weight: Vital Signs (12 hours) Temp Pulse Resp BP BP Pulse Ox 05/10/19 15:27 96.2 F L 87 16 106/64 98 05/10/19 12:00 97.6 F 99 16 108/71 97 05/10/19 11:15 97.6 F 99 16 108/71 97 05/10/19 08:20 102 H 05/10/19 08:00 98.0 F 102 H 16 123/67 97 Weight Admit Weight 178 lb 8 oz Weight 178 lb 8 oz I&O: 05/09/19 05/10/19 05/11/19 06:59 06:59 06:59 Intake Total 1240 1605 360 Output Total 675 1450 200 Balance 565 155 160 Result Diagrams: 05/07/19 04:36 05/08/19 04:39 Additional Labs: Accuchecks 05/10/19 05/10/19 05/10/19 15:27 11:16 05:33 POC Glucose 200 H 138 H 123 H 05/09/19 05/09/19 19:34 17:50 POC Glucose 116 H 119 H Hospitalist ROS - Review of Systems Respiratory: denies: cough, dry, shortness of breath, hemoptysis, SOB with excertion, pleuritic pain, sputum, wheezing, other Cardiovascular: reports: light headedness Gastrointestinal: denies: nausea, vomiting, abdominal pain, diarrhea, constipation, melena, hematochezia, other - Medication Medications: Active Medications Generic Name Dose Route Start Last Admin Trade Name Freq PRN Reason Stop Dose Admin Acetaminophen 1,000 mg 05/06/19 02:36 05/10/19 08:19 Tylenol PO 1,000 mg Q6H PRN Administration Mild Pain (1-3) Amlodipine Besylate 10 mg 05/08/19 09:00 05/10/19 08:20 Norvasc PO 10 mg DAILY TIKA Administration Baclofen 5 mg 05/06/19 09:00 05/10/19 08:18 Lioresal PO 5 mg BID TIKA Administration Bisacodyl 10 mg 05/06/19 02:36 05/06/19 06:06 Dulcolax [place] 10 mg DAILYPRN PRN Administration Constipation Chlorpromazine HCl 25 mg 05/10/19 12:00 05/10/19 17:17 Thorazine PO 25 mg Q6HR TIKA Administration Docusate Sodium 100 mg 05/10/19 09:00 05/10/19 08:20 Colace PO 100 mg BID TIKA Administration Gabapentin 400 mg 05/06/19 09:00 05/10/19 08:19 Neurontin PO 400 mg BID TIKA Administration Metronidazole 500 mg/ Device 100 mls @ 100 mls/hr 05/06/19 17:00 05/10/19 17: 17 IVPB 100 mls 0100,0900,1700 TIKA Administration Insulin Human Lispro 0 units 05/06/19 02:36 05/10/19 15:41 Humalog SC 2 unit .MILD SLIDING SCALE PRN Administration Mild Correctional Scale Isosorbide Mononitrate 30 mg 05/08/19 09:00 05/10/19 08:18 Imdur Er PO 30 mg DAILY TIAK Administration Magnesium Oxide 400 mg 05/06/19 09:00 05/10/19 08:19 Magnesium Oxide PO 400 mg DAILY TIKA Administration Metoclopramide HCl 10 mg 05/08/19 11:30 05/10/19 17:17 Reglan PO 10 mg ACHS TIKA Administration Ondansetron HCl 4 mg 05/06/19 02:36 05/06/19 21:16 Zofran IVP 4 mg Q6H PRN Administration Nausea/Vomiting Pantoprazole Sodium 40 mg 05/10/19 09:00 05/10/19 08:20 Protonix PO 40 mg DAILY TIKA Administration Saccharomyces Boulardii 250 mg 05/06/19 21:00 05/09/19 21:47 Florastor PO 250 mg HS TIKA Administration Sodium Chloride 10 ml 05/10/19 09:00 05/10/19 08:22 Flush - Normal Saline IVF 10 ml Q12HR TIKA Administration Vancomycin HCl 250 mg 05/08/19 21:00 05/10/19 15:25 First Vancomycin PO 250 mg 0300,0900,1500,2100 TIKA Administration - Exam Neck: negative: supple, symmetric, no JVD, no thyromegaly, no lymphadenopathy, no carotid bruit, JVD Heart: negative: RRR, no murmur, no gallops, no rubs, normal peripheral pulses, irregular, diminshed peripheral pulses, murmur present, II/IV, III/IV Respiratory: negative: CTAB, no wheezes, no rales, no ronchi, normal chest expansion, no tachypnea, normal percussion, rales, rhonchi, tachypneic, wheezes Hosp A/P (1) Nausea & vomiting Code(s): R11.2 - NAUSEA WITH VOMITING, UNSPECIFIED Status: Acute (2) Diabetes mellitus type 2 in nonobese Code(s): E11.9 - TYPE 2 DIABETES MELLITUS WITHOUT COMPLICATIONS Status: Chronic (3) History of cholecystectomy Code(s): Z90.49 - ACQUIRED ABSENCE OF OTHER SPECIFIED PARTS OF DIGESTIVE TRACT Status: Chronic (4) Hypertension Code(s): I10 - ESSENTIAL (PRIMARY) HYPERTENSION Status: Chronic (5) Ileus Code(s): K56.7 - ILEUS, UNSPECIFIED Status: Acute (6) Esophagitis Code(s): K20.9 - ESOPHAGITIS, UNSPECIFIED Status: Acute - Plan will continue oral vanco. pt has had one large bm today. Ng tube inserted. pt has no abd pain. 05/08 will replace electrolytes, pt has not had any bm. per surgery's notes his ileus has resolved. will monitor. pt on ppi for esophagitis. 05/09 will add PT/OT to see pt. will continue iv abx and oral abx for now. Ng tube out. will need snf 05/10 will continue current abx, pt feels dizzy bp checked low bp. will give ns blous and check cbc.
[2019-05-10 18:33] LABS: #Eosinphils 0.2 thou/uL (0.0-0.7); #Lymphocytes 1.4 thou/uL (1.20-3.40); #Monocytes 0.6 thou/uL (0.11-0.59); #Neutrophils 3.6 thou/uL (1.40-6.50); %Basophils 0.3 % (0.0-1.0); %Eosinophils 3.8 % (0.0-10.0); %Lymphocytes 24.4 % (21.0-51.0); %Monocytes 9.4 % (0.0-10.0); Hemoglobin 9.8 g/dL (14.0-18.0); Mean Corpuscular HGB CONC 32.2 g/dL (32.0-36.0); Mean Corpuscular Hemoglobin 26.8 pg (27.0-31.0); Mean Corpuscular Volume 83.2 fL (78.0-98.0); Mean Platelet Volume 6.7 fL (7.4-10.4); Platelet Count 450 thou/uL (130-400); RBC Distribution Width 14.7 % (11.5-14.5); Red Blood Cell (RBC) Count 3.65 mill/uL (4.70-6.10); White Blood Cell (WBC) Count 5.8 thou/uL (4.8-10.8)
[2019-05-10] MEDS: Lactated Ringer's 1,000 ML IV SCH (18:38)
[2019-05-10] MEDS: Senokot 8.6 MG TAB PO SCH (21:36)
[2019-05-10] MEDS: Saccharomyces boulardii 250 MG CAP PO SCH (21:36)
[2019-05-11] MEDS: metroNIDAZOLE 500 MG in Premix Bag 1 BAG IVPB SCH ×3 (00:39→17:58)
[2019-05-11] MEDS: Vancomycin HCl 25 MG/ML Oral PO SCH ×4 (04:12→22:00)
[2019-05-11] MEDS: chlorproMAZINE HCl 25 MG TAB PO SCH ×3 (04:14→18:07)
[2019-05-11 05:28] LABS: #Eosinphils 0.2 thou/uL (0.0-0.7); #Lymphocytes 1.3 thou/uL (1.20-3.40); #Monocytes 0.6 thou/uL (0.11-0.59); #Neutrophils 4.2 thou/uL (1.40-6.50); %Basophils 0.4 % (0.0-1.0); %Eosinophils 3.9 % (0.0-10.0); %Lymphocytes 19.9 % (21.0-51.0); %Monocytes 8.8 % (0.0-10.0); Hemoglobin 9.2 g/dL (14.0-18.0); Mean Corpuscular HGB CONC 31.8 g/dL (32.0-36.0); Mean Corpuscular Hemoglobin 26.4 pg (27.0-31.0); Mean Corpuscular Volume 83.3 fL (78.0-98.0); Platelet Count 419 thou/uL (130-400); RBC Distribution Width 14.7 % (11.5-14.5); White Blood Cell (WBC) Count 6.3 thou/uL (4.8-10.8)
[2019-05-11] MEDS: Metoclopramide 10 MG/10 ML UDCUP PO SCH ×4 (06:56→21:51)
[2019-05-11] MEDS: Magnesium Oxide 400 MG TAB PO SCH (09:43)
[2019-05-11] MEDS: Isosorbide Mononitrate (ER) 30 MG TAB PO SCH (09:43)
[2019-05-11] MEDS: Baclofen 10 MG TAB PO SCH ×2 (09:43→21:52)
[2019-05-11] MEDS: Amlodipine 10 MG TAB PO SCH (09:44)
[2019-05-11] MEDS: Gabapentin 400 MG CAP PO SCH ×2 (09:44→21:52)
[2019-05-11] MEDS: Docusate 100 MG CAP PO SCH ×2 (09:45→21:52)
[2019-05-11] MEDS: HumaLOG 300 UNITS/3 ML VIAL SC PRN (12:07)
[2019-05-11] MEDS: Lactated Ringer's 1,000 ML IV SCH ×2 (12:13→21:55)
--- NOTE | 2019-05-11 12:36 | PDOC.HOSPP ---
- Subjective Encounter Date: 05/11/19 Encounter Time: 12:34 Subjective: no diarrhea, liteheaded arising - Objective Vital Signs & Weight: Vital Signs (12 hours) Temp Pulse Resp BP BP BP Pulse Ox 05/11/19 11:10 97.6 F 97 16 91/60 92 L 05/11/19 11:05 90/61 05/11/19 09:44 122 H 125/88 05/11/19 07:08 98.0 F 122 H 16 125/88 92 L 05/11/19 05:04 98.6 F 95 16 105/65 95 Weight Admit Weight 178 lb 8 oz Weight 178 lb 8 oz I&O: 05/10/19 05/11/19 05/12/19 06:59 06:59 06:59 Intake Total 1605 1700 Output Total 1450 702 Balance 155 998 Result Diagrams: 05/11/19 04:56 05/08/19 04:39 Additional Labs: Accuchecks 05/11/19 05/11/19 05/10/19 11:08 05:41 20:29 POC Glucose 181 H 130 H 151 H 05/10/19 15:27 POC Glucose 200 H Hospitalist ROS - Medication Medications: Active Medications Generic Name Dose Route Start Last Admin Trade Name Freq PRN Reason Stop Dose Admin Acetaminophen 1,000 mg 05/06/19 02:36 05/10/19 08:19 Tylenol PO 1,000 mg Q6H PRN Administration Mild Pain (1-3) Baclofen 5 mg 05/06/19 09:00 05/11/19 09:43 Lioresal PO 5 mg BID TIKA Administration Bisacodyl 10 mg 05/06/19 02:36 05/06/19 06:06 Dulcolax [place] 10 mg DAILYPRN PRN Administration Constipation Chlorpromazine HCl 25 mg 05/10/19 12:00 05/11/19 12:07 Thorazine PO 25 mg Q6HR TIKA Administration Docusate Sodium 100 mg 05/10/19 09:00 05/11/19 09:45 Colace PO Not Given BID TIKA Gabapentin 400 mg 05/06/19 09:00 05/11/19 09:44 Neurontin PO 400 mg BID TIKA Administration Metronidazole 500 mg/ Device 100 mls @ 100 mls/hr 05/06/19 17:00 05/11/19 09: 44 IVPB 100 mls 0100,0900,1700 TIKA Administration Lactated Ringer's 1,000 mls @ 50 mls/hr 05/10/19 17:30 05/11/19 12:13 Lactated Ringer's IV 1,000 mls .Q20H TIKA Administration Insulin Human Lispro 0 units 05/06/19 02:36 05/11/19 12:07 Humalog SC 2 unit .MILD SLIDING SCALE PRN Administration Mild Correctional Scale Isosorbide Mononitrate 30 mg 05/08/19 09:00 05/11/19 09:43 Imdur Er PO 30 mg DAILY TIKA Administration Magnesium Oxide 400 mg 05/06/19 09:00 05/11/19 09:43 Magnesium Oxide PO 400 mg DAILY TIKA Administration Metoclopramide HCl 10 mg 05/08/19 11:30 05/11/19 12:07 Reglan PO 10 mg ACHS TIKA Administration Ondansetron HCl 4 mg 05/06/19 02:36 05/06/19 21:16 Zofran IVP 4 mg Q6H PRN Administration Nausea/Vomiting Pantoprazole Sodium 40 mg 05/10/19 09:00 05/11/19 09:44 Protonix PO 40 mg DAILY TIKA Administration Saccharomyces Boulardii 250 mg 05/06/19 21:00 05/10/19 21:36 Florastor PO 250 mg HS TIKA Administration Senna 1 tab 05/10/19 21:00 05/10/19 21:36 Senokot PO 1 tab HS TIKA Administration Sodium Chloride 10 ml 05/10/19 09:00 05/11/19 09:46 Flush - Normal Saline IVF 10 ml Q12HR TIKA Administration Vancomycin HCl 250 mg 05/08/19 21:00 05/11/19 09:42 First Vancomycin PO 250 mg 0300,0900,1500,2100 TIKA Administration - Exam General Appearance: awake alert Neck: no JVD Heart: RRR, no murmur Respiratory: CTAB Gastrointestinal: soft, normal bowel sounds Extremities: no edema Hosp A/P (1) Ileus Code(s): K56.7 - ILEUS, UNSPECIFIED Status: Resolved (2) Clostridioides difficile diarrhea Code(s): A04.72 - ENTEROCOLITIS D/T CLOSTRIDIUM DIFFICILE, NOT SPCF RECUR Status: Acute (3) Nausea & vomiting Code(s): R11.2 - NAUSEA WITH VOMITING, UNSPECIFIED Status: Acute Qualifiers: Vomiting Intractability: unspecified (4) Diabetes mellitus type 2 in nonobese Code(s): E11.9 - TYPE 2 DIABETES MELLITUS WITHOUT COMPLICATIONS Status: Chronic (5) Hypertension Code(s): I10 - ESSENTIAL (PRIMARY) HYPERTENSION Status: Chronic Qualifiers: Hypertension type: essential hypertension Qualified Code(s): I10 - Essential (primary) hypertension (6) Hypotension Status: Acute - Plan check serum cortisol, tsh hold amlodipine cont C diff tx
[2019-05-11] MEDS: Acetaminophen 500 MG TAB PO PRN (16:55)
[2019-05-11] MEDS: Saccharomyces boulardii 250 MG CAP PO SCH (21:52)
[2019-05-11] MEDS: Senokot 8.6 MG TAB PO SCH (21:55)
[2019-05-12] MEDS: chlorproMAZINE HCl 25 MG TAB PO SCH ×2 (00:10→05:59)
[2019-05-12] MEDS: metroNIDAZOLE 500 MG in Premix Bag 1 BAG IVPB SCH ×2 (00:45→08:24)
[2019-05-12] MEDS: Vancomycin HCl 25 MG/ML Oral PO SCH ×2 (02:50→10:28)
[2019-05-12] MEDS: Metoclopramide 10 MG/10 ML UDCUP PO SCH (07:31)
[2019-05-12] MEDS: Baclofen 10 MG TAB PO SCH (08:22)
[2019-05-12] MEDS: Isosorbide Mononitrate (ER) 30 MG TAB PO SCH (08:22)
[2019-05-12] MEDS: Magnesium Oxide 400 MG TAB PO SCH (08:24)
[2019-05-12] MEDS: Docusate 100 MG CAP PO SCH (08:24)
[2019-05-12] MEDS: Gabapentin 400 MG CAP PO SCH (08:24)
--- NOTE | 2019-05-12 09:59 | PDOC.HOSPP ---
- Subjective Encounter Date: 05/12/19 Encounter Time: 09:57 Subjective: no diarrhea, etc - Objective Vital Signs & Weight: Vital Signs (12 hours) Temp Pulse Resp BP Pulse Ox 05/12/19 08:06 97.2 F L 120 H 20 149/93 H 95 05/12/19 08:00 95 05/12/19 02:55 97.4 F L 100 16 128/78 96 05/11/19 23:35 98.1 F 95 14 119/71 96 Weight Admit Weight 178 lb 8 oz Weight 178 lb 8 oz I&O: 05/11/19 05/12/19 05/13/19 06:59 06:59 06:59 Intake Total 1700 3631 Output Total 702 1200 Balance 998 2431 Result Diagrams: 05/11/19 04:56 05/08/19 04:39 Additional Labs: Accuchecks 05/11/19 05/11/19 05/11/19 23:47 18:05 11:08 POC Glucose 113 H 120 H 181 H Hospitalist ROS - Medication Medications: Active Medications Generic Name Dose Route Start Last Admin Trade Name Freq PRN Reason Stop Dose Admin Acetaminophen 1,000 mg 05/06/19 02:36 05/11/19 16:55 Tylenol PO 1,000 mg Q6H PRN Administration Mild Pain (1-3) Baclofen 5 mg 05/06/19 09:00 05/12/19 08:22 Lioresal PO 5 mg BID TIKA Administration Bisacodyl 10 mg 05/06/19 02:36 05/06/19 06:06 Dulcolax [place] 10 mg DAILYPRN PRN Administration Constipation Chlorpromazine HCl 25 mg 05/10/19 12:00 05/12/19 05:59 Thorazine PO 25 mg Q6HR TIKA Administration Docusate Sodium 100 mg 05/10/19 09:00 05/12/19 08:24 Colace PO 100 mg BID TIKA Administration Gabapentin 400 mg 05/06/19 09:00 05/12/19 08:24 Neurontin PO 400 mg BID TIKA Administration Metronidazole 500 mg/ Device 100 mls @ 100 mls/hr 05/06/19 17:00 05/12/19 08: 24 IVPB 100 mls 0100,0900,1700 TIKA Administration Lactated Ringer's 1,000 mls @ 50 mls/hr 05/10/19 17:30 05/11/19 21:55 Lactated Ringer's IV 1,000 mls .Q20H TIKA Administration Insulin Human Lispro 0 units 05/06/19 02:36 05/11/19 12:07 Humalog SC 2 unit .MILD SLIDING SCALE PRN Administration Mild Correctional Scale Isosorbide Mononitrate 30 mg 05/08/19 09:00 05/12/19 08:22 Imdur Er PO 30 mg DAILY TIKA Administration Magnesium Oxide 400 mg 05/06/19 09:00 05/12/19 08:24 Magnesium Oxide PO 400 mg DAILY TIKA Administration Metoclopramide HCl 10 mg 05/08/19 11:30 05/12/19 07:31 Reglan PO 10 mg ACHS TIKA Administration Ondansetron HCl 4 mg 05/06/19 02:36 05/06/19 21:16 Zofran IVP 4 mg Q6H PRN Administration Nausea/Vomiting Pantoprazole Sodium 40 mg 05/10/19 09:00 05/12/19 08:24 Protonix PO 40 mg DAILY TIKA Administration Saccharomyces Boulardii 250 mg 05/06/19 21:00 05/11/19 21:52 Florastor PO 250 mg HS TIKA Administration Senna 1 tab 05/10/19 21:00 05/11/19 21:55 Senokot PO 1 tab HS TIKA Administration Sodium Chloride 10 ml 05/10/19 09:00 05/11/19 21:53 Flush - Normal Saline IVF 10 ml Q12HR TIKA Administration Vancomycin HCl 250 mg 05/08/19 21:00 05/12/19 02:50 First Vancomycin PO 250 mg 0300,0900,1500,2100 TIKA Administration - Exam Neck: no JVD Heart: RRR, no murmur, no rubs Respiratory: CTAB Gastrointestinal: soft, normal bowel sounds Extremities: 1+ LE edema Hosp A/P (1) Ileus Code(s): K56.7 - ILEUS, UNSPECIFIED Status: Resolved (2) Clostridioides difficile diarrhea Code(s): A04.72 - ENTEROCOLITIS D/T CLOSTRIDIUM DIFFICILE, NOT SPCF RECUR Status: Acute (3) Nausea & vomiting Code(s): R11.2 - NAUSEA WITH VOMITING, UNSPECIFIED Status: Acute Qualifiers: Vomiting Intractability: unspecified (4) Diabetes mellitus type 2 in nonobese Code(s): E11.9 - TYPE 2 DIABETES MELLITUS WITHOUT COMPLICATIONS Status: Chronic (5) Hypertension Code(s): I10 - ESSENTIAL (PRIMARY) HYPERTENSION Status: Chronic Qualifiers: Hypertension type: essential hypertension Qualified Code(s): I10 - Essential (primary) hypertension (6) Hypotension Status: Acute - Plan BP improved off amlodipine cont tx for C diff CM consult for placemeent
--- NOTE | 2019-05-12 11:07 | DIS ---
DATE OF ADMISSION: 05/06/2019 DATE OF DISCHARGE: 05/12/2019 PRIMARY CARE PROVIDER: Zaira Rey. DISPOSITION: Discharged to [facility]. DIAGNOSES: Nausea, vomiting, Clostridium difficile colitis, type 2 diabetes, hypertension, ileus. DISCHARGE MEDICATIONS: 1. Lasix 20 mg a day. 2. Aspirin 81 mg a day. 3. Zocor 20 mg a day. 4. Magnesium oxide 400 mg a day. 5. Cozaar 100 mg a day. 6. Gabapentin 400 mg twice a day. 7. Baclofen 5 mg p.o. b.i.d. 8. Metformin 500 mg p.o. b.i.d. 9. Vancomycin 250 mg q.i.d. p.o. for 7 more days. 10. Protonix 40 mg a day. 11. Reglan 10 mg p.o. before meals and at bedtime. ALLERGIES: IBUPROFEN, ASPIRIN, FLUOXETINE, MORPHINE. THIS IS DESPITE THE FACT, HE HAS TAKEN ASPIRIN DAILY, HOWEVER, THAT WERE CLAIMED. DIET: Diabetic. PENDING AT THE TIME OF DISCHARGE: Nothing. CODE STATUS: Full. HOSPITAL STAY: The patient was admitted to the [facility] through [facility] with chief complaint of abdominal distention, nausea, and vomiting. When seen, he was found to have postoperative ileus. He was made n.p.o. General Surgery consulted. CT of the abdomen and pelvis ordered. Pertinent laboratory; white count 11.3, hemoglobin 10, platelet count 492,000. He was on therapy for C diff. He had a positive C diff on 04/27/2019. His abdomen and pelvis CT showed stable postsurgical changes. Abdominal x-ray, nonspecific. Consultations during his hospital stay; Dr. Poli Rossi, General Surgery, and Dr. Justino Hagen, Gastroenterology. The patient was followed during his hospital stay. His ileus resolved. He had some diarrhea. His C diff treatment was increased from 125 vancomycin q.i.d. to 250. Diarrhea resolved. His abdomen is benign. He is having no further problems. He did have some low blood pressures in the morning. His amlodipine was stopped and this is resolved. He is not being discharged on the amlodipine. He is being discharged to the care of Dr. Melissa Gandhi, [facility], PT/OT, etc. CONDITION AT THE TIME OF DISCHARGE: Stable and doing well. Job ID: [id number]
[2019-05-12 13:03] VITALS: BP 94/59; TEMP 97.6
--- NOTE | 2019-05-14 02:56 | PQF ---
LYNN ORELLANA COUNCIL C MD [id number] CLINICAL DOCUMENTATION CLARIFICATION FORM: POST DISCHARGE Addendum to original discharge summary date: ____ Late entry note date: __ DATE: 05/14/19 ATTN: Lang Martinez Please exercise your independent, professional judgment in responding to the clarification form. Clinical indicators are provided on the bottom of this form for your review In your clinical opinion based on clinical findings below, can you please identify the etiology of nausea and vomiting if due to: Please check appropriate box(s): [ ] Ileus [ ] Postoperative complication Ileus due to Cholecystectomy [x ] C Diff Colitis [ ] Gastroparesis [ ] Esophagitis [ ] Other condition, please specify: [ ] Unable to determine In addition, please specify: Present on Admission (POA): [ x] Yes [ ] No [ ] Unable to determine For continuity of documentation, please document condition throughout progress notes and discharge summary. Thank You. CLINICAL INDICATORS - SIGNS / SYMPTOMS / LABS H&P p1 05/06 Dr Shaw Pt recently discharge 04/30 and been doing fairly well over the last 48 hours, however, noted increasing abdominal distention with nausea and vomiting and general malaise H&P p1 05/06 Dr Shaw Pt significant for acute cholecystitis s/p lap cholecystectomy converting to open cholecystectomy due to adhesions H&P p1 05/06 Dr Shaw Pt also develop diarrhea, positive for Clostridium difficile antigen and toxic, initiated oral Vancomycin H&P p1 05/06 Dr Shaw Pt also exhibited hematemesis, undergoing EGD evaluation showing esophagitis RISK FACTORS H&P p1 05/06 69-year-old H&P p1 05/06 recently s/p Open Cholecystectomy H&P p4 05/06 Postoperative Ileus PN p1 05/08 Gastroparesis TREATMENTS: H&P p1 05/06 Ordered NG tube H&P p1 05/06 Reglan 10mg IV PRN H&P p1 05/06 Vancomycin 125mg PO H&P p1 05/06 Thorazine 25mg General Surgery Consult 05/06 Poli Jones GE Consult 05/06 Justino Rhoades (This form is maintained as a part of the permanent medical record) 2014 [email or web address]. All Rights Reserved [email or web address] [not provided] [email or web address]
== END 2019-05-12 13:23 | disposition swing bed (61) | DRG 372 ==
LOC: SJJU 01:44
PROVIDERS: ADMIT Family Medicine; ATTEND Family Medicine
DX: A04.72 Enterocolitis due to Clostridium difficile, not specified as recurrent (principal); K56.7 Ileus, unspecified; I69.354 Hemiplegia and hemiparesis following cerebral infarction affecting left non-dominant side; I10 Essential (primary) hypertension; E11.43 Type 2 diabetes mellitus with diabetic autonomic (poly)neuropathy; K31.84 Gastroparesis; K20.9 Esophagitis, unspecified; I25.10 Atherosclerotic heart disease of native coronary artery without angina pectoris; Z88.6 Allergy status to analgesic agent; I25.2 Old myocardial infarction; Z88.5 Allergy status to narcotic agent; Z88.8 Allergy status to other drugs, medicaments and biological substances; Z23 Encounter for immunization; Z74.01 Bed confinement status; Z90.49 Acquired absence of other specified parts of digestive tract; Z79.899 Other long term (current) drug therapy; Z79.84 Long term (current) use of oral hypoglycemic drugs; Z79.82 Long term (current) use of aspirin
CPT/HCPCS: 36415; 36416; 71045; 74018; 74019; 74022; 74177; 80048; 80053; 82533; 83735; 84100; 84443; 85007; 85025; 85027; 86850; 86900; 86901; 90471; 90662; C9113; G0008; J2405; J2765; J3230; J3480; J7050; Q0161; Q9967; S0028

== ENCOUNTER → 2021-04-18 | Outpatient (CLI) | payer MEDICARE ==
[2021-04-18 16:55] LABS: SARS-CoV-2 PCR by NAA Not Detected (NotDetected)
== END ==
LOC: LABBT 10:07
PROVIDERS: ATTEND Internal Medicine
DX: Z01.812 Encounter for preprocedural laboratory examination (principal); Z20.822 Contact with and (suspected) exposure to COVID-19
CPT/HCPCS: U0003; U0005

== ENCOUNTER 2021-04-21 05:46 | Day surgery (SDC) | payer MEDICARE ==
[2021-04-20 12:36] VITALS: BMI 24.7
[2021-04-21] MEDS ORDERED: PROPOFOL 200 MG/20 ML VIAL ONE (07:57)
[2021-04-21] MEDS ORDERED: ePHEDrine 50 MG/ML VIAL ONE (07:57)
[2021-04-21] MEDS ORDERED: Lidocaine 1% PF 5 ML VIAL ONE (07:57)
== END 2021-04-21 09:05 | disposition home or self-care (01) ==
LOC: SDC 05:46
PROVIDERS: ATTEND Internal Medicine
PROC: 0DJD8ZZ Inspection of Lower Intestinal Tract, Via Natural or Artificial Opening Endoscopic (ICD-10-PCS; principal; 2021-04-21)
DX: Z12.11 Encounter for screening for malignant neoplasm of colon (principal); I11.0 Hypertensive heart disease with heart failure; I50.9 Heart failure, unspecified; I69.398 Other sequelae of cerebral infarction; R26.89 Other abnormalities of gait and mobility; I49.3 Ventricular premature depolarization; K21.9 Gastro-esophageal reflux disease without esophagitis; E11.9 Type 2 diabetes mellitus without complications; I25.2 Old myocardial infarction; E78.00 Pure hypercholesterolemia, unspecified; Z85.038 Personal history of other malignant neoplasm of large intestine; Z87.891 Personal history of nicotine dependence; Z79.82 Long term (current) use of aspirin; Z79.84 Long term (current) use of oral hypoglycemic drugs; Z79.899 Other long term (current) drug therapy; Z88.5 Allergy status to narcotic agent; Z88.6 Allergy status to analgesic agent; Z88.8 Allergy status to other drugs, medicaments and biological substances; Z99.3 Dependence on wheelchair
CPT/HCPCS: C1713; J2704; J3490

== ENCOUNTER 2021-09-23 21:39 | Observation (INO) | payer MEDICARE, OTHER ==
[2021-09-24] MEDS ORDERED: Sodium Chloride 0.9% 1,000 ML IV SCH
[2021-09-24] MEDS ORDERED: Dextrose 5% in Water 1,000 ML IV PRN (00:06)
[2021-09-24] MEDS ORDERED: Dextrose 50% Abboject 50 ML SYRINGE SLOW IVP PRN (00:06)
[2021-09-24 02:17] VITALS: BMI 27.0
[2021-09-24] MEDS: Acetaminophen 325 MG TAB PO PRN (02:46)
[2021-09-24] MEDS: HumaLOG 300 UNITS/3 ML VIAL SC PRN ×2 (05:52→12:21)
[2021-09-24 06:28] LABS: Hemoglobin 12.4 g/dL (14.0-18.0); Mean Corpuscular HGB CONC 31.1 g/dL (32.0-36.0); Mean Corpuscular Hemoglobin 26.8 pg (27.0-31.0); Mean Corpuscular Volume 86.2 fL (78.0-98.0); Mean Platelet Volume 8.3 fL (7.4-10.4); Platelet Count 196 thou/uL (130-400); RBC Distribution Width 13.7 % (11.5-14.5); Red Blood Cell (RBC) Count 4.62 mill/uL (4.70-6.10); White Blood Cell (WBC) Count 6.4 thou/uL (4.8-10.8)
[2021-09-24 06:44] LABS: Anion Gap 14 mmol/L (10-20); BUN (Urea Nitrogen) 11 mg/dL (8.4-25.7); Calc. Creatinine Clearance 74 mL/min (70-130); Calcium 8.3 mg/dL (7.8-10.44); Carbon Dioxide 24 mmol/L (23-31); Chloride 102 mmol/L (98-107); Glucose 190 mg/dL (83-110); Sodium 137 mmol/L (136-145)
[2021-09-24 06:48] LABS: Band 2 % (5-11); Lymphocytes 17 % (21-51); MDiff Complete? YES; Monocytes 26 % (0-10); Neutrophil 55 % (42-75); Platelet Morphology Comment Appears Adequate; Potassium 2.9 mmol/L (3.5-5.1); RBC Morphology Normal
[2021-09-24] MEDS ORDERED: Polyethylene Glycol 3350 17 GM Packet PO PRN (07:08)
[2021-09-24] MEDS ORDERED: hydrALAZINE 20 MG/ML VIAL SLOW IVP PRN (07:10)
[2021-09-24] MEDS ORDERED: Potassium Chloride 20 MEQ TAB PO SCH (07:15)
[2021-09-24] MEDS ORDERED: Amlodipine 5 MG TAB PO SCH (07:15)
[2021-09-24] MEDS ORDERED: Potassium Chloride 40 MEQ in Sodium Chloride 0.9% 250 ML 250 ML IVPB SCH (08:00)
[2021-09-24] MEDS: Aspirin 81 mg Enteric Coated Tablet PO SCH ×2 (08:43→20:46)
[2021-09-24] MEDS: Famotidine 20 MG TAB PO SCH ×2 (08:44→20:48)
[2021-09-24] MEDS: metFORMIN 500 MG TAB PO SCH ×2 (08:44→17:16)
[2021-09-24] MEDS: Gabapentin 400 MG CAP PO SCH ×2 (08:44→20:47)
[2021-09-24] MEDS: Oseltamivir 75 MG CAP PO SCH ×2 (08:44→20:48)
[2021-09-24] MEDS: Baclofen 10 MG TAB PO SCH ×2 (08:44→20:46)
[2021-09-24] MEDS ORDERED: Losartan 25 MG TAB PO SCH (09:00)
[2021-09-24] MEDS ORDERED: Enoxaparin Sodium 30 MG/0.3 ML SYRINGE SC SCH (09:00)
[2021-09-24] MEDS: Sodium Chloride 0.9% 1,000 ML IV SCH (11:37)
[2021-09-24 12:23] LABS: Hemoglobin A1c 9.6 % (4.0-6.0)
[2021-09-24] MEDS ORDERED: Benzonatate 100 MG CAP PO PRN (16:27)
[2021-09-24] MEDS ORDERED: Guaifenesin DM 100-10/5 ML UDCUP PO PRN (16:28)
[2021-09-24 20:41] LABS: SARS-CoV-2 PCR by NAA Not Detected (NotDetected)
[2021-09-24] MEDS ORDERED: Atorvastatin Calcium 10 MG TAB PO SCH (21:00)
[2021-09-25] MEDS: Acetaminophen 325 MG TAB PO PRN (02:59)
[2021-09-25] MEDS: Sodium Chloride 0.9% 1,000 ML IV SCH (03:08)
[2021-09-25 07:13] LABS: #Lymphocytes 1.5 thou/uL (1.20-3.40); #Monocytes 0.7 thou/uL (0.11-0.59); #Neutrophils 2.4 thou/uL (1.40-6.50); %Basophils 0.3 % (0.0-1.0); %Eosinophils 0.7 % (0.0-10.0); %Lymphocytes 31.9 % (21.0-51.0); %Monocytes 14.3 % (0.0-10.0); %Neutrophils 52.8 % (42.0-75.0); Hemoglobin 11.4 g/dL (14.0-18.0); Mean Corpuscular HGB CONC 31.9 g/dL (32.0-36.0); Mean Corpuscular Volume 84.7 fL (78.0-98.0); Platelet Count 167 thou/uL (130-400); RBC Distribution Width 13.5 % (11.5-14.5); Red Blood Cell (RBC) Count 4.22 mill/uL (4.70-6.10); White Blood Cell (WBC) Count 4.6 thou/uL (4.8-10.8)
[2021-09-25 07:31] LABS: Anion Gap 9 mmol/L (10-20); BUN (Urea Nitrogen) 9 mg/dL (8.4-25.7); Calc. Creatinine Clearance 82 mL/min (70-130); Calcium 7.8 mg/dL (7.8-10.44); Carbon Dioxide 24 mmol/L (23-31); Chloride 108 mmol/L (98-107); Glucose 138 mg/dL (83-110); Magnesium 1.2 mg/dL (1.6-2.6); Potassium 3.4 mmol/L (3.5-5.1); Sodium 138 mmol/L (136-145)
[2021-09-25] MEDS ORDERED: Magnesium Sulfate In Water 4 GM in Premix Bag 1 BAG IVPB SCH (07:45)
[2021-09-25] MEDS ORDERED: Potassium Chloride 20 MEQ TAB PO SCH (07:45)
[2021-09-25 07:53] VITALS: BP 135/77; TEMP 98.2
[2021-09-25] MEDS: Oseltamivir 75 MG CAP PO SCH (08:57)
[2021-09-25] MEDS: Aspirin 81 mg Enteric Coated Tablet PO SCH (08:58)
[2021-09-25] MEDS: metFORMIN 500 MG TAB PO SCH (08:59)
[2021-09-25] MEDS: Famotidine 20 MG TAB PO SCH (08:59)
[2021-09-25] MEDS: Gabapentin 400 MG CAP PO SCH (08:59)
[2021-09-25] MEDS ORDERED: Furosemide 20 MG TAB PO SCH (09:00)
[2021-09-25] MEDS ORDERED: Losartan 25 MG TAB PO SCH (09:00)
[2021-09-25] MEDS ORDERED: Enoxaparin Sodium 40 MG/0.4 ML SYRINGE SC SCH (09:00)
[2021-09-25] MEDS: Baclofen 10 MG TAB PO SCH (09:00)
[2021-09-25] MEDS ORDERED: Baclofen 10 MG TAB PO SCH ×3 (09:15→21:00)
[2021-09-25] MEDS: HumaLOG 300 UNITS/3 ML VIAL SC PRN (11:24)
[2021-09-25 12:40] LABS: Bacteria/HPF None Seen HPF (None Seen); Bilirubin Negative (Negative); Blood, Urine Negative (Negative); Clarity Clear (Clear); Glucose, Urine (Dipstick) Normal (Negative); Ketone, Urine Negative (Negative); Leukocyte Negative Leu/uL (Negative); Nitrite Negative (Negative); Protein, Urine (Dipstick) Negative (Neg-Trace); RBC/HPF None Seen HPF (0-3); Specific Gravity, Urine 1.008 (1.002-1.036); Squamous Epithelial None Seen HPF (0-3); Urobilinogen Normal mg/dL (Less than 2); WBC/HPF 0-3 HPF (0-3); pH, Urine 5.5 (5.0-9.0)
[2021-09-25 12:42] LABS: Urine Culture Reflex No No
== END 2021-09-25 14:57 | disposition home or self-care (01) ==
LOC: ERS 21:39 → T4-A 09-24
PROVIDERS: ADMIT Internal Medicine; ATTEND Family Medicine
DX: J10.01 Influenza due to other identified influenza virus with the same other identified influenza virus pneumonia (principal); G93.41 Metabolic encephalopathy; I11.0 Hypertensive heart disease with heart failure; I50.22 Chronic systolic (congestive) heart failure; I48.0 Paroxysmal atrial fibrillation; E11.9 Type 2 diabetes mellitus without complications; I25.10 Atherosclerotic heart disease of native coronary artery without angina pectoris; I69.351 Hemiplegia and hemiparesis following cerebral infarction affecting right dominant side; I25.2 Old myocardial infarction; Z85.038 Personal history of other malignant neoplasm of large intestine; Z87.891 Personal history of nicotine dependence; Z79.82 Long term (current) use of aspirin; Z79.84 Long term (current) use of oral hypoglycemic drugs; Z79.899 Other long term (current) drug therapy; Z88.5 Allergy status to narcotic agent; Z88.6 Allergy status to analgesic agent; Z88.8 Allergy status to other drugs, medicaments and biological substances; Z95.5 Presence of coronary angioplasty implant and graft; Z90.49 Acquired absence of other specified parts of digestive tract; Z20.822 Contact with and (suspected) exposure to COVID-19
CPT/HCPCS: 70450; 80048 ×2; 81001; 82962 ×2; 83036; 83735; 85025 ×2; 87086; 93005; 93970; 96372; 96374; 96375; 97139 ×3; 99285; G0378 ×2; J3475; U0003; U0005; 36415; 36416; J1650; J1815; J3480; J7050